=== PATIENT | male | born 1940 | race Caucasian/White ===

== ENCOUNTER 2019-04-16 15:39 | Inpatient (IN) | payer MEDICARE ==
[2019-04-16] MEDS ORDERED: NALOXONE 0.4 MG/ML 1 ML VIAL IV PRN (17:55)
[2019-04-16] MEDS ORDERED: SODIUM CHLORIDE 0.9% 1,000 ML IV SCH ×2 (18:00→19:45)
[2019-04-16 18:35] VITALS: BMI 17.1
[2019-04-16 18:36] LABS: Anisocytosis Slight; Basophils % (A) 0 %; Eosinophils # (A) 0.1 k/uL (0-0.7); Eosinophils % (A) 2 %; HCT 34.6 % (39.0-53.0); HGB 10.3 gm/dL (13.0-17.5); Hypochromasia Marked; Lymphocytes % (A) 11 %; MCHC 29.7 g/dL (31.0-37.0); MCV 87.3 fL (80.0-100.0); Mean Platelet Volume 6.9; Monocytes # (A) 0.5 k/uL (0-1.0); Monocytes % (A) 6 %; Neutrophils # (A) 7.3 k/uL (1.3-7.7); Neutrophils % (A) 80 %; Platelet Count 369 k/uL (150-450); RBC 3.97 m/uL (4.30-5.90); RDW 17.9 % (11.5-15.5); WBC 9.2 k/uL (3.8-10.6)
[2019-04-16 18:43] LABS: Albumin 2.9 g/dL (3.5-5.0); Calcium 8.1 mg/dL (8.4-10.2); Potassium 3.7 mmol/L (3.5-5.1); Total Bilirubin 1.4 mg/dL (0.2-1.3); Total Protein 6.1 g/dL (6.3-8.2)
--- NOTE | 2019-04-16 18:46 | XR ---
EXAMINATION TYPE: XR chest 1V portable DATE OF EXAM: 04/16/2019 COMPARISON: 02/14/2019 HISTORY: Short of breath TECHNIQUE: Single frontal view of the chest is obtained. FINDINGS: Heart size is normal. There is no heart failure. Thoracic aorta is atheromatous. There is a left axillary pacemaker. There is old right-sided healed rib fractures. Costophrenic angles are ivan ar. IMPRESSION: Atheromatous aorta. No active cardiopulmonary disease. No change.
[2019-04-16] MEDS ORDERED: hydrALAZINE HCL 20 MG/ML 1 ML VIAL IVP PRN (19:32)
[2019-04-16] MEDS ORDERED: IPRATROPIUM-ALBUTEROL 3 ML NEB INHALATION PRN (19:47)
[2019-04-16] MEDS ORDERED: traMADol 50 MG TAB PO PRN (19:56)
[2019-04-16] MEDS: IPRATROPIUM-ALBUTEROL 3 ML NEB INHALATION SCH (20:08)
[2019-04-16] MEDS: SYMBICORT 160-4.5 MCG INHALER INHALATION SCH (20:08)
[2019-04-16] MEDS: HEPARIN SODIUM,PORCINE 5,000 UNIT/ML 1 ML VIAL SQ SCH (22:38)
[2019-04-16] MEDS: PIPERACILLIN-TAZOBACTAM 3.375 GM in SODIUM CHLORIDE 0.9% 100 ML IVPB SCH (22:39)
[2019-04-16] MEDS: ACETAMINOPHEN TAB 500 MG TAB PO PRN (22:39)
[2019-04-16] MEDS: SODIUM CHLORIDE 0.9% 1,000 ML with POTASSIUM CHLORIDE 20 MEQ, MVI, ADULT NO.4 WITH VIT ... IV SCH ×5 (22:40)
--- NOTE | 2019-04-17 00:30 | HP ---
HISTORY AND PHYSICAL DATE OF SERVICE: 04/16/2019. CHIEF COMPLAINTS: Change in mental status and cough and UTI, possible pneumonia. HISTORY OF PRESENT ILLNESS: This 78-year-old gentleman with a past medical history of multiple medical problems including history of macular degeneration, history of melanoma, squamous cell carcinoma, history of COPD, shoulder surgery, CAD, stent being followed by Dr. Farnsworth in the patient apparently had a fall recently. Patient was treated at [facility] at that time. The patient apparently had a pelvis fracture treated symptomatically. Patient also had excoriations on the both legs also. Subsequently, patient was sent to rehab in [place], but patient has had dysphagia and cough in the ECF. The patient had some change in his status. Patient becoming progressively disoriented and confused and the patient taken to the ER in the hospital and subsequently patient directly transferred to [facility] for further evaluation and treatment. The sensorium is fluctuating at this time but the patient is unable to give a coherent history. Most of the history taken from my discussion with staff and review of the chart and as well as discussion with the family at the bedside at this time. Patient is also diagnosed with UTI and as well as pneumonia also in the hospital. There is no history of any fever, rigors, and no history of recent trauma. There is history of abdominal aortic repair in October 2018. ABG in the [facility] showed alkalosis pH of 7.66. PAST MEDICAL HISTORY: Past medical history of COPD, history of shoulder surgery, history of DJD, history of loop recorder. The patient was found to be in atrial fibrillation as this time. Continuing: CAD, stent. MEDICATION LIST: Is not available. ALLERGIES: NORCO, ADHESIVE TAPES AND NORCO AND BACTRIM. FAMILY HISTORY, SOCIAL HISTORY, REVIEW OF SYSTEMS: Could not be taken from the patient because the patient is confused. History of dementia per chart. Previous history of smoking per chart. REVIEW OF SYMPTOMS: Review of systems could not be taken because of change in mental status. PHYSICAL EXAM: Patient is confused. Pulse 83, blood pressure 181/60, respiration 20, temperature 98.2, pulse ox 98% on 3 L. HEENT is conjunctivae normal. Oral mucosa moist. NECK is no jugular venous distention. No carotid bruit. No lymph node enlargement. CARDIOVASCULAR: S1, S2 muffled. RESPIRATIONS: Breath sounds diminished in the bases. A few scattered rhonchi and crackles. ABDOMEN: Soft, nontender. No mass palpable. LEGS: Movements are painful but splints are applied with some bandages. NERVOUS SYSTEM: Higher functions as mentioned earlier. Full exam is not possible because the patient is confused and noncooperative. Diffuse weakness is noted. SKIN as mentioned earlier. Lymphatics: No lymph nodes palpable in the neck, axillae or groin. JOINTS: Noted. LABS: WBC 9.2, hemoglobin 10.2, sodium 149, potassium 3.7. Total bilirubin is 1.4. Alkaline phosphatase is 523. ASSESSMENT: 1. Change in mental status and possible acute metabolic encephalopathy secondary to possible pneumonia with sepsis. 2. Possible urinary tract infection. 3. Dysphagia, rule out aspiration and aspiration pneumonia. 4. History of recent fall and fracture of pelvis and abrasion of the legs. 5. Gait dysfunction. 6. Respiratory alkalosis of undetermined etiology. 7. Hypernatremia. 8. Anemia, possibly anemia of chronic disease. 9. Increased creatinine with mild acute renal failure. 10.Increased alkaline phosphatase. 11.Hypoalbuminemia with BMI of 17.1 with moderate to severe protein calorie malnutrition. 12.History of chronic obstructive pulmonary disease. 13.History of macular degeneration. 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 15.History of degenerative joint disease. 16.History of pacemaker. 17.History of loop recorder. 18.Atrial fibrillation, probably new onset. 19.History of abdominal aortic aneurysm repair. 20.History of coronary artery disease, stent. 21.History of pacemaker. 22.Remote history of nicotine dependence. 23.FULL CODE. RECOMMENDATIONS AND DISCUSSION: In this 78-year-old gentleman who presented with multiple complex medical issues as mentioned earlier, at this time, I recommend continue the current medications, management and symptomatic treatment. Recommend broad-spectrum IV antibiotics and evaluate the patient for any aspiration with modified barium swallow in the morning with speech pathology. Otherwise, Pulmonary and Cardiology will be consulted and DVT prophylaxis. Resume the home medications. Monitor blood pressure closely. Cardiology consultation. 2D echo with Doppler. The overall prognosis extremely guarded because of multiple complex medical issues which I discussed at length with the family who understands and agrees. Further recommendations to follow. A copy of dictation being forwarded to Dr. Farnsworth who is the primary physician. MMODL / IJN: [id number] / MTDD
[2019-04-17] MEDS: PIPERACILLIN-TAZOBACTAM 3.375 GM in SODIUM CHLORIDE 0.9% 100 ML IVPB SCH ×3 (03:42→22:03)
[2019-04-17 06:33] LABS: Appearance,Urine Clear (Clear); Bacteria,Urine Rare /hpf; Bilirubin,Urine Negative (Negative); Blood,Urine Negative (Negative); Color,Urine Light Yellow; Glucose,Urine (UA) Negative (Negative); Hyphae Yeast, Urine Rare /hpf; Ketones,Urine Negative (Negative); Leukocyte Esterase,Urine Moderate (Negative); Nitrite,Urine Negative (Negative); PH, Urine 7.5 (5.0-8.0); Protein,Urine Negative (Negative); RBC,Urine 1 /hpf (0-5); Specific Gravity,Urine 1.009 (1.001-1.035); Urobilinogen,Urine <2.0 mg/dL (<2.0); WBC,Urine 35 /hpf (0-5)
[2019-04-17] MEDS: SYMBICORT 160-4.5 MCG INHALER INHALATION SCH ×2 (07:36→20:48)
[2019-04-17] MEDS: IPRATROPIUM-ALBUTEROL 3 ML NEB INHALATION SCH ×3 (07:36→20:48)
[2019-04-17 08:45] LABS: Anisocytosis Slight; Basophils % (A) 0 %; Eosinophils # (A) 0.2 k/uL (0-0.7); Eosinophils % (A) 2 %; HCT 33.9 % (39.0-53.0); HGB 10.2 gm/dL (13.0-17.5); Hypochromasia Marked; Lymphocytes # (A) 0.9 k/uL (1.0-4.8); Lymphocytes % (A) 11 %; MCH 26.4 pg (25.0-35.0); MCV 88.2 fL (80.0-100.0); Mean Platelet Volume 7.7; Monocytes # (A) 0.5 k/uL (0-1.0); Monocytes % (A) 6 %; Neutrophils # (A) 6.5 k/uL (1.3-7.7); Neutrophils % (A) 80 %; Platelet Count 346 k/uL (150-450); RBC 3.85 m/uL (4.30-5.90); RDW 18.1 % (11.5-15.5); WBC 8.2 k/uL (3.8-10.6)
[2019-04-17] MEDS ORDERED: FLUDROCORTISONE 0.1 MG TAB PO SCH (09:00)
[2019-04-17] MEDS: FLUTICASONE 50MCG/SPRAY NASAL 16GM EA NOSTRIL SCH (10:43)
[2019-04-17] MEDS: PANTOPRAZOLE 40 MG/10 ML VIAL IVP SCH (11:04)
[2019-04-17] MEDS: HEPARIN SODIUM,PORCINE 5,000 UNIT/ML 1 ML VIAL SQ SCH (11:05)
--- NOTE | 2019-04-17 12:40 | CDI ---
Documentation Clarification Form Date: 04/17/2019 12:24:19 PM From: Cristina Cast RN CCDS Admit Date: 04/16/2019 5:28:00 PM Patient Name: Juan Bunch Visit Number: [id number] Discharge Date: ATTENTION: The Clinical Documentation Specialists (CDI) and [facility] Coding Staff appreciate your assistance in clarifying documentation. Please respond to the clarification below the line at the bottom and electronically sign. The CDI & [facility] Coding staff will review the response and follow-up if needed. Please note: Queries are made part of the Legal Health Record. If you have any questions, please contact the author of this message via ITS. Dr. Sherita Winter A Stage 2 Coccyx pressure ulcer was documented in the nursing assessment. History/Risk Factors: 78 year old male with a recent fall with pelvic fracture hospitalized at [facility]. The patient was sent to Rehab in [place] where he became disorientated and confused . The patient was transferred to [facility] from the [facility] Medical history COPD, CAD, Macular Degeneration Clinical Indicators: Per H & P Patient also had excoriations on both legs also. Location: Coccyx Wound description: length 2cm x width 2cm depth 0.1cm, moist Treatment: Foam with border Consults: Elements for accurate and compliant documentation of an ulcer: *The location/laterality of the ulcer *Etiology (decubitus/pressure, diabetic, PVD) *Stage I-IV, Unstageable, Suspected Deep Tissue Injury (To the deepest stage) *If the ulcer was present at admission (POA) or occurred after admission In your professional opinion, can you please clarify the diagnosis, location, laterality and whether present on admission (POA): * Stage 2 Pressure/Decubitus Ulcer (Partial thickness, loss of dermis, pink wound bed) * Other condition, please specify * Unable to determine Please indicate etiology of pressure ulcer (if known). (Last Revision: June 2017) Stage 2 Pressure/Decubitus Ulcer (Partial thickness, loss of dermis, pink wound bed) MTDD
--- NOTE | 2019-04-17 13:23 | P.CRDCN ---
History of Present Illness History of present illness: This is a pleasant 78-year-old male past medical history significant for coronary artery disease status post stent placement in the mid , permanent pacemaker implantation in 2014 with a Medtronic device, abdominal aortic aneurysm stent graft repair October 2018, COPD, orthostatic hypotension, dyslipidemia and former nicotine dependence. He recently suffered a pelvic fracture and has been undergoing rehabilitation at an extended care facility. He presented to the hospital as a transfer secondary to altered mental status and urinary tract infection. We have been asked to see him in consultation secondary to atrial fibrillation noted on the EKG. Per the a few years back the patient was diagnosed with atrial fibrillation and was placed on Eliquis. There was some confusion as to whether or not he actually had atrial fibrillation based on his pacemaker interrogations and the Eliquis was stopped. EKG obtained on arrival reveals atrial fibrillation with controlled ventricular response. He denies symptoms of chest discomfort, shortness of breath, dizziness or palpitations. He is seen and examined resting comfortably lying flat in bed with his at the bedside. Chest x-ray is negative for an acute cardiopulmonary process, old right rib fracture and Atheromatous aorta. Laboratory data reviewed, WBC 8.2, hemoglobin 10.2, platelets 346, sodium 146, p otassium 4.0, creatinine 1.34 with a GFR of 50. Current cardiac medications include atorvastatin 20 mg daily, Plavix 75 mg daily, Zetia 10 mg daily, Florinef 0.1 mg daily, midodrine 20 mg 3 times a day and pyridostignime 60 mg TID. At the time of my exam: CONSTITUTIONAL: Denies fever. Denies chills. EYES: Denies blurred vision. Denies vision changes. Denies eye pain. EARS, NOSE, MOUTH & THROAT: Denies headache. Denies sore throat. Denies ear pain. CARDIOVASCULAR: Denies chest pain. Denies shortness of breath. Denies orthopnea. Denies PND. Denies palpitations. RESPIRATORY: Denies cough. GASTROINTESTINAL: Denies abdominal pain. Denies diarrhea. Denies constipation. Denies nausea. Denies vomiting. MUSCULOSKELETAL: Denies myalgias. INTEGUMENTARY: Denies pruitis. Denies rash. NEUROLOGIC: Denies numbness. Denies tingling. Denies weakness. PSYCHIATRIC: Denies anxiety. Denies depression. ENDOCRINE: Denies fatigue. Denies weight change. Denies polydipsia. Denies polyurina. GENITOURINARY: Denies burning, hematuria or urgency with micturation. HEMATOLOGIC: Denies history of anemia. Denies bleeding. Blood pressure 155/95 heart rate 87 afebrile maintaining oxygen saturation on room air GENERAL: This is a 78-year-old male in no apparent distress at the time of my examination. HEENT: Head is atraumatic, normocephalic. Pupils are equal, round. Sclerae anicteric. Conjunctivae are clear. Mucous membranes of the mouth are moist. Neck is supple. There is no jugular venous distention. No carotid bruit is heard. LUNGS: Clear to auscultation no wheezes, rales or rhonchi. No chest wall tenderness is noted on palpation or with deep breathing. Diminished bilaterally. HEART: Irregular rate and rhythm without murmurs, rubs or gallops. S1 and S2 heard. ABDOMEN: Soft, nontender. Bowel sounds are heard. No organomegaly noted. EXTREMITIES: No evidence of peripheral edema and no calf tenderness noted. Bilateral heel protectors in place. VASCULAR: Radial and dorsalis pedis pulses palpated, no evidence of clubbing. NEUROLOGIC: Patient is awake, alert and oriented x3. ASSESSMENT Paroxysmal atrial fibrillation not currently on usp anticoagulation Altered mental status Dysphagia History of othostatic hypotension Dyslipidemia s/p permanent pacemaker implantation, Medtronic History of coronary artery disease s/p stent placement History of abdominal aortic aneurysm s/p stent graft placement 10/2018 maintained on plavix. PLAN Initiate on usp anticoagulation in the form of Eliquis 5 mg BID for thromboembolic protection. Risks of bleeding explained to patient and his . Check d-dimer and cortisol level. Check supine blood pressure. If less than 160 systolic will increase florinef. Further recommendations to follow. Thank you kindly for this consultation. Nurse Practitioner note has been reviewed, I agree with a documented findings and plan of care. Patient was seen and examined. Past Medical History Past Medical History: Cancer Additional Past Medical History / Comment(s): macular degeneration, melanoma (1999), squamous cell cacinoma (apr 2002, left lower hip) basal cell ca rcinoma. COPD, shoulder surgery 2007, heart loop recorder apr 18, 2014, pace maker 2014, dermal neoplas, shoulder repari 07/24, hip repair "ball and stem" 09/24, AAA repair october 2018 History of Any Multi-Drug Resistant Organisms: None Reported Past Surgical History: Heart Catheterization With Stent, Hernia Repair, Joint Replacement, Orthopedic Surgery, Pacemaker Date of Last Stent Placement:: 1995 Type of Cardiac Device: Permanent Pacemaker Device Placement Date:: 2014 Smoking Status: Former smoker - Past Family History Father Family Medical History: No Reported History, Dementia Mother Family Medical History: Diabetes Mellitus Medications and Allergies Home Medications Medication Instructions Recorded Confirmed Type Acetaminophen [Tylenol] 500 mg PO Q4-6H PRN 04/16/19 04/16/19 History Atorvastatin Calcium [Lipitor] 20 mg PO DAILY 04/16/19 04/16/19 History Budesonide/Formoterol Fumarate 2 puff INHALATION RT-BID 04/16/19 04/16/19 History [Symbicort 160-4.5 Mcg Inhaler] Clopidogrel Bisulfate [Plavix] 75 mg PO DAILY 04/16/19 04/16/19 History Cyanocobalamin (Vitamin B-12) 1,000 mcg PO DAILY 04/16/19 04/16/19 History [Vitamin B-12] Ezetimibe [Zetia] 10 mg PO DAILY 04/16/19 04/16/19 History Fludrocortisone [Florinef] 0.1 mg PO DAILY 04/16/19 04/16/19 History Fluticasone Nasal Solsberry [Flonase 2 spr EA NOSTRIL DAILY 04/16/19 04/16/19 History Nasal Solsberry] Folic Acid 1 mg PO DAILY@1200 04/16/19 04/16/19 History Ipratropium-Albuterol Nebulize 3 ml INHALATION RT-TID PRN 04/16/19 04/16/19 History [Duoneb 0.5 mg-3 mg/3 ml Soln] Midodrine HCl [ProAmatine] 20 mg PO TID 04/16/19 04/16/19 History Multivitamins, Thera [Multivitamin 1 tab PO DAILY@1200 04/16/19 04/16/19 History (formulary)] Polyethylene Glycol 3350 [Miralax] 17 gm PO DAILY 04/16/19 04/16/19 History Pyridostigmine [Mestinon] 60 mg PO TID 04/16/19 04/16/19 History Tamsulosin HCl [Flomax] 0.4 mg PO DAILY 04/16/19 04/16/19 History traMADol HCL [Ultram] 50 mg PO TID PRN 04/16/19 04/16/19 History Allergies Allergy/AdvReac Type Severity Reaction Status Date / Time acetaminophen [From [place]] AdvReac Hallucinati Verified 04/16/19 20:34 ons adhesive tape AdvReac Unknown Verified 04/16/19 20:34 hydrocodone [From [place]] AdvReac Hallucinati Verified 04/16/19 20:34 ons sulfamethoxazole AdvReac Hallucinati Verified 04/16/19 20:34 [From Bactrim] ons trimethoprim [From Bactrim] AdvReac Hallucinati Verified 04/16/19 20:34 ons Physical Exam Vitals: Vital Signs Temp Pulse Pulse Resp BP Pulse Ox 04/17/19 07:45 90 04/17/19 07:36 88 04/17/19 07:00 97.6 F 87 14 155/95 99 04/17/19 00:59 98.0 F 74 18 157/84 94 L 04/16/19 20:18 91 04/16/19 20:12 94 L 04/16/19 20:11 90 04/16/19 19:36 97.7 F 84 17 166/95 96 04/16/19 17:28 98.3 F 83 28 H 181/66 Intake and Output 04/16/19 04/17/19 04/17/19 22:59 06:59 14:59 Output Total 300 350 Balance -300 -350 Output: Urine 300 350 Other: Voiding Method Urinal Urinal # Voids 1 1 1 Weight 57.27 kg Results 04/17/19 07:02 04/17/19 07:02 Cardiac Enzymes 04/16/19 Range/Units 18:13 AST 33 (17-59) U/L CBC 04/16/19 04/17/19 Range/Units 18:13 07:02 WBC 9.2 8.2 (3.8-10.6) k/uL RBC 3.97 L 3.85 L (4.30-5.90) m/uL Hgb 10.3 L 10.2 L (13.0-17.5) gm/dL Hct 34.6 L 33.9 L (39.0-53.0) % Plt Count 369 346 (150-450) k/uL Comprehensive Metabolic Panel 04/16/19 04/17/19 Range/Units 18:13 07:02 Sodium 147 H 146 H (137-145) mmol/L Potassium 3.7 4.0 (3.5-5.1) mmol/L Chloride 113 H 117 H (98-107) mmol/L Carbon Dioxide 28 27 (22-30) mmol/L BUN 17 15 (9-20) mg/dL Creatinine 1.47 H 1.34 H (0.66-1.25) mg/dL Glucose 83 73 L (74-99) mg/dL Calcium 8.1 L 8.0 L (8.4-10.2) mg/dL AST 33 (17-59) U/L ALT 39 (21-72) U/L Alkaline Phosphatase 523 H (38-126) U/L Total Protein 6.1 L (6.3-8.2) g/dL Albumin 2.9 L (3.5-5.0) g/dL Current Medications Generic Name Dose Route Start Last Admin Trade Name Freq PRN Reason Stop Dose Admin Acetaminophen 500 mg 04/16/19 20:01 04/16/19 22:39 Tylenol Tab PO 500 mg Q4HR PRN Administration Fever and/ or Pain Albuterol/Ipratropium 3 ml 04/16/19 20:00 04/17/19 07:36 Duoneb 0.5 Mg-3 Mg/3 Ml Soln INHALATION 3 ml RT-TID JUAN Administration Albuterol/Ipratropium 3 ml 04/16/19 19:47 Duoneb 0.5 Mg-3 Mg/3 Ml Soln INHALATION RT-TID PRN Shortness Of Breath Or Wheezing Atorvastatin Calcium 20 mg 04/17/19 09:00 Lipitor PO DAILY [facility] Budesonide/Formoterol Fumarate 2 puff 04/16/19 20:00 04/17/19 07:36 Symbicort 160-4.5 Mcg Inhaler INHALATION 2 puff RT-BID JUAN Administration Clopidogrel Bisulfate 75 mg 04/17/19 09:00 Plavix PO DAILY [facility] Cyanocobalamin 1,000 mcg 04/17/19 09:00 Vitamin B-12 PO DAILY [facility] Ezetimibe 10 mg 04/17/19 09:00 Zetia PO DAILY [facility] Fludrocortisone Acetate 0.1 mg 04/17/19 09:00 Florinef PO DAILY [facility] Fluticasone Propionate 2 spray 04/17/19 09:00 04/17/19 10:43 Flonase Nasal Solsberry EA NOSTRIL 2 spray DAILY [facility] Administration Folic Acid 1 mg 04/17/19 12:00 Folic Acid PO DAILY@1200 [facility] Heparin Sodium (Porcine) 5,000 unit 04/16/19 21:00 04/17/19 11:05 Heparin SQ 5,000 unit Q12HR [facility] Administration Hydralazine HCl 10 mg 04/16/19 19:32 Apresoline IVP Q4HR PRN SBP>140 Piperacillin Sod/Tazobactam 100 mls @ 25 mls/hr 04/16/19 20:00 04/17/19 03:42 Sod 3.375 gm/ Sodium Chloride IVPB 25 mls/hr Q8H [facility] Administration Potassium Chloride 20 meq/ 1,021.2 mls @ 75 mls/hr 04/16/19 20:00 04/16/19 22:40 Parenteral Vitamin Supplement IV 75 mls/hr 10 ml/ Thiamine HCl 100 mg/ .[id number] [facility] Administration Folic Acid 1 mg/ Sodium Chloride Midodrine 10 mg 04/17/19 07:30 Proamatine PO AC-TID [facility] Multivitamins 1 each 04/17/19 12:00 Theragran PO DAILY@1200 [facility] Naloxone HCl 0.2 mg 04/16/19 17:55 Narcan IV Q2M PRN Opioid Reversal Pantoprazole Sodium 40 mg 04/17/19 09:00 04/17/19 11:04 Protonix IVP 40 mg DAILY [facility] Administration Polyethylene Glycol 17 gm 04/17/19 09:00 Miralax PO DAILY [facility] Tamsulosin HCl 0.4 mg 04/17/19 08:30 Flomax PO PC-BRKFST [facility] Tramadol HCl 50 mg 04/16/19 19:56 Ultram PO TID PRN Breakthrough Pain Intake and Output 04/16/19 04/17/19 04/17/19 22:59 06:59 14:59 Output Total 300 350 Balance -300 -350 Output: Urine 300 350 Other: Voiding Method Urinal Urinal # Voids 1 1 1 Weight 57.27 kg 04/17/19 07:02 04/17/19 07:02
--- NOTE | 2019-04-17 13:49 | CT ---
EXAMINATION TYPE: CT brain wo con DATE OF EXAM: 04/17/2019 COMPARISON: 04/16/2019 HISTORY: stroke CT DLP: 1051.4 mGycm Automated exposure control for dose reduction was used. FINDINGS: There is low-attenuation in the right temporal lobe compatible with encephalomalacia. Generalized mod erate degenerative change. Periventricular low attenuation is most compatible with remote microvascul ar ischemia. No midline shift or mass effect. No acute intracranial hemorrhage. IMPRESSION: DEGENERATIVE CHANGE AND NONSPECIFIC WHITE MATTER CHANGES MOST TYPICAL REMOTE ISCHEMIA. ENCEPHALOMALAC IA INVOLVING THE RIGHT TEMPORAL LOBE SUGGESTIVE OF REMOTE ISCHEMIA. NO ACUTE HEMORRHAGE.
--- NOTE | 2019-04-17 14:12 | FL ---
EXAMINATION TYPE: FL barium swallow w video DATE OF EXAM: 04/17/2019 MODIFIED SWALLOW / DEGLUTITION STUDY CLINICAL HISTORY: Dysphagia. TECHNIQUE: Deglutition study is performed utilizing thin liquid barium, honey and nectar thick liqui d barium, barium thick applesauce, and barium coated cracker. COMPARISON: None. FINDINGS: The oral and pharyngeal phases show satisfactory initiation and propagation with all modali ties tested. Normal mastication is seen with solid modalities tested. There is no evidence of penet ration or aspiration with any modality tested. No significant pharyngeal residue was appreciated. 1. 3 minutes of fluoroscopy time and 0 images submitted. IMPRESSION: Normal deglutition study. Please refer to speech therapist notes for further details if necessary.
[2019-04-17] MEDS: ATORVASTATIN 20 MG TAB PO SCH (14:40)
[2019-04-17] MEDS: FOLIC ACID 1 MG TAB PO SCH (14:40)
[2019-04-17] MEDS: CYANOCOBALAMIN 500 MCG TAB PO SCH (14:41)
[2019-04-17] MEDS: EZETIMIBE 10 MG TAB PO SCH (14:41)
[2019-04-17] MEDS: CLOPIDOGREL 75 MG TAB PO SCH (14:41)
[2019-04-17] MEDS: TAMSULOSIN 0.4 MG CAP.ER.24H PO SCH (14:41)
[2019-04-17] MEDS: MIDODRINE 5 MG TAB PO SCH ×3 (14:41→17:32)
[2019-04-17] MEDS: MULTIVITAMINS, THERA 1 EACH TAB PO SCH (14:41)
[2019-04-17] MEDS: SODIUM CHLORIDE 0.9% 1,000 ML with POTASSIUM CHLORIDE 20 MEQ, MVI, ADULT NO.4 WITH VIT ... IV SCH ×5 (14:42)
[2019-04-17] MEDS: POLYETHYLENE GLYCOL 3350 17 GM POWD.PACK PO SCH (14:42)
[2019-04-17] MEDS: ACETAMINOPHEN TAB 500 MG TAB PO PRN ×2 (15:27→22:05)
[2019-04-17] MEDS ORDERED: FLUDROCORTISONE 0.1 MG TAB PO STA (15:37)
--- NOTE | 2019-04-17 15:41 | P.CNPUL ---
History of Present Illness Consult date: 04/17/19 Chief complaint: Altered mentation History of present illness: This is a 78-year-old male patient who came into respiratory of altered mental status and declining health status in general. This patient was involved in a fall and the left hip fracture in the beginning of 2018. Following that he had another fall sustaining a pelvic fracture for which she was sent to [facility] and following that the patient was transferred to [facility] where he was supposed to undergo rehabilitation. Nevertheless, according to the , his condition is been poor. Point where the patient never got ambulatory he was essentially bedridden. His nutrition was also poor as the patient had dropped significantly amount of weight and current BMI is down to 17.1. He has multiple medical problems and comorbidities. He is known to have coronary artery disease with previous coronary stenting and has a pacemaker in place. He has a abdominal aortic aneurysm that was stented endovascularly back in October 2018. His severe COPD with oxygen dependent respiratory failure, chronic in addition to hyperlipidemia, paroxysmal atrial fibrillation, macular degeneration, melanoma, squamous cell carcinoma of the skin, and osteoarthritis. Most significant finding for now as his chronic debility and malnourishment and limited range of motion. 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 The patient was started on broad-spectrum antibiotics including a combination of Zosyn and vancomycin as the patient's chest x-ray showed chronic interstitial changes and pneumonia was considered. Blood gases showed an acute respiratory alkalosis with a pH of 7.66 with a pCO2 of 25. The patient was quite dehydrated with hypernatremia. Urinalysis was also abnormal with some few WBCs and rare bacteria. No nausea. No vomiting. No aspiration. He is swallow was however questionable and for that reason the patient was sent over to a very swallow. This initial evaluation was done at [facility]. For now, the patient has a white cell count of 8.2. Hemoglobin is at 10.2. Sodium was 146. BUN is 15 with a creatinine of 1.34 improved since yesterday. D-dimer was elevated at 8, and the patient has an elevated alkaline phosphatase of 523 with normal AST and ALP and bilirubin. Calcium level is at 8.1. UA showing 35 WBCs. Cultures are still pending for now. Chest x-[facility] findings [facility] and the patient is currently liters of oxygen nasal cannula with oxygen 98%. He is awake and alert and communicating and answering questions appropriately. His mucous membranes are extremely dry. The swallow evaluation was repeated and the patient was found to have normal study Review of Systems Constitutional: Reports anorexia, Reports fatigue, Reports lethargy, Reports poor appetite, Reports weakness, Reports weight loss Eyes: bilateral blurred vision, bilateral bulging eye, denies decreased vision Ears: deny: decreased hearing, ear discharge, earache, tinnitus Ears, nose, mouth and throat: Reports as per HPI (Dryness in his mouth and oral mucosa), Reports voice changes Cardiovascular: Reports decreased exercise tolerance Respiratory: Reports dyspnea, Reports home oxygen Gastrointestinal: Reports as per HPI, Reports loss of appetite Genitourinary: Reports as per HPI Musculoskeletal: Reports frequent falls, Reports gait dysfunction, Reports muscle weakness Musculoskeletal: absent: ankle pain, ankle stiffness, ankle swelling Integumentary: Denies pruritus, Denies rash Neurological: Reports as per HPI, Reports balance difficulties, Reports gait dysfunction, Reports weakness Psychiatric: Reports as per HPI Endocrine: Reports as per HPI, Reports fatigue Hematologic/Lymphatic: Reports as per HPI Past Medical History Past Medical History: Cancer Additional Past Medical History / Comment(s): Coronary artery disease with previous coronary stenting, COPD, previous history of a permanent pacemaker insertion, abdominal aortic aneurysm with insertion of an endovascular stent graft, history of orthostatic hypotension, history of frequent falls, history of left hip fracture, history of pelvic fracture, hyperlipidemia, history of atrial fibrillation, hyperlipidemia, melanoma resected back in June 2000, 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, macular degeneration, history of insertion and removal of a heart loop recorder, History of Any Multi-Drug Resistant Organisms: None Reported Past Surgical History: Heart Catheterization With Stent, Hernia Repair, Joint Replacement, Orthopedic Surgery, Pacemaker Additional Past Surgical History / Comment(s): Resection of a melanoma and squamous cell carcinoma of the skin involving the lower lip, shoulder surgery 2007, insertion and removal of a loop recorder, pacemaker insertion 2014, cardiac catheterization and stenting, left hip ORIF in September 2018, shoulder surgery in July 2018, abdominal aortic aneurysm endovascular stent grafting in October 2018 Date of Last Stent Placement:: 1995 Type of Cardiac Device: Permanent Pacemaker Device Placement Date:: 2014 Smoking Status: Former smoker - Past Family History Father Family Medical History: No Reported History, Dementia Mother Family Medical History: Diabetes Mellitus Medications and Allergies Home Medications Medication Instructions Recorded Confirmed Type Acetaminophen [Tylenol] 500 mg PO Q4-6H PRN 04/16/19 04/16/19 History Atorvastatin Calcium [Lipitor] 20 mg PO DAILY 04/16/19 04/16/19 History Budesonide/Formoterol Fumarate 2 puff INHALATION RT-BID 04/16/19 04/16/19 History [Symbicort 160-4.5 Mcg Inhaler] Clopidogrel Bisulfate [Plavix] 75 mg PO DAILY 04/16/19 04/16/19 History Cyanocobalamin (Vitamin B-12) 1,000 mcg PO DAILY 04/16/19 04/16/19 History [Vitamin B-12] Ezetimibe [Zetia] 10 mg PO DAILY 04/16/19 04/16/19 History Fludrocortisone [Florinef] 0.1 mg PO DAILY 04/16/19 04/16/19 History Fluticasone Nasal [place] [Flonase 2 spr EA NOSTRIL DAILY 04/16/19 04/16/19 History Nasal [place]] Folic Acid 1 mg PO DAILY@1200 04/16/19 04/16/19 History Ipratropium-Albuterol Nebulize 3 ml INHALATION RT-TID PRN 04/16/19 04/16/19 History [Duoneb 0.5 mg-3 mg/3 ml Soln] Midodrine HCl [ProAmatine] 20 mg PO TID 04/16/19 04/16/19 History Multivitamins, Thera [Multivitamin 1 tab PO DAILY@1200 04/16/19 04/16/19 History (formulary)] Polyethylene Glycol 3350 [Miralax] 17 gm PO DAILY 04/16/19 04/16/19 History Pyridostigmine [Mestinon] 60 mg PO TID 04/16/19 04/16/19 History Tamsulosin HCl [Flomax] 0.4 mg PO DAILY 04/16/19 04/16/19 History traMADol HCL [Ultram] 50 mg PO TID PRN 04/16/19 04/16/19 History Allergies Allergy/AdvReac Type Severity Reaction Status Date / Time acetaminophen [From [place]] AdvReac Hallucinati Verified 04/16/19 20:34 ons adhesive tape AdvReac Unknown Verified 04/16/19 20:34 hydrocodone [From [place]] AdvReac Hallucinati Verified 04/16/19 20:34 ons sulfamethoxazole AdvReac Hallucinati Verified 04/16/19 20:34 [From Bactrim] ons trimethoprim [From Bactrim] AdvReac Hallucinati Verified 04/16/19 20:34 ons Physical Exam Vitals: Vital Signs Temp Pulse Pulse Resp BP Pulse Ox 04/17/19 14:19 97.5 F L 83 16 138/90 98 04/17/19 07:45 90 04/17/19 07:36 88 04/17/19 07:00 97.6 F 87 14 155/95 99 04/17/19 00:59 98.0 F 74 18 157/84 94 L 04/16/19 20:18 91 04/16/19 20:12 94 L 04/16/19 20:11 90 04/16/19 19:36 97.7 F 84 17 166/95 96 04/16/19 17:28 98.3 F 83 28 H 181/66 Intake and Output 04/17/19 04/17/19 04/17/19 06:59 14:59 22:59 Output Total 300 350 Balance -300 -350 Output: Urine 300 350 Other: Voiding Method Urinal # Voids 1 1 Weight 57.27 kg Gen. appearance thin cachectic frail BMI of 17.1, communicating, nonacute distress Head exam was generally normal. There was no scleral icterus or corneal arcus. Mucous membranes were moist. Neck was supple and without jugular venous distension, thyromegaly, or carotid bruits. Carotids were easily palpable bilaterally. There was no adenopathy. Mucus membranes are extremely dry and the patient has poor dental condition Lungs sounds are diminished bilaterally otherwise clear. Scattered rhonchi. Cardiac exam revealed the PMI to be normally situated and sized. The rhythm was regular and no extrasystoles were noted during several minutes of auscultation. The first and second heart sounds were normal and physiologic splitting of the second heart sound was noted. There were no murmurs, rubs, clicks, or gallops. Abdominal exam revealed normal bowel sounds. The abdomen was soft, non-tender, and without masses, organomegaly, or appreciable enlargement of the abdominal aorta. Extremities revealed very atrophied muscles specially in lower extremities bilaterally. Pulses are diminished. They're present. No cyanosis. No clubbing. Skin is extremely thin and brittle and the patient has areas of skin abrasions t hroughout the upper and lower extremities. No open wounds. No open sores. No cellulitis. Neurologically the patient is awake and alert and following commands and answering questions appropriately. Motor weakness present especially in lower extremities with motor function of 2-3/5. No Babinski. No clonus. Results - Laboratory Findings CBC and BMP: 04/17/19 07:02 04/17/19 07:02 PT/INR, D-dimer D-Dimer 8.06 mg/L FEU (<0.60) H 04/17/19 13:45 Abnormal lab findings: Abnormal Labs 04/16/19 04/16/19 04/17/19 18:13 18:13 06:02 RBC 3.97 L Hgb 10.3 L Hct 34.6 L MCHC 29.7 L RDW 17.9 H Lymphocytes # D-Dimer Sodium 147 H Chloride 113 H Creatinine 1.47 H Glucose Calcium 8.1 L Total Bilirubin 1.4 H Alkaline Phosphatase 523 H Total Protein 6.1 L Albumin 2.9 L Ur Leukocyte Esterase Moderate H Urine WBC 35 H Urine Bacteria Rare H 04/17/19 04/17/19 04/17/19 07:02 07:02 13:45 RBC 3.85 L Hgb 10.2 L Hct 33.9 L MCHC 30.0 L RDW 18.1 H Lymphocytes # 0.9 L D-Dimer 8.06 H Sodium 146 H Chloride 117 H Creatinine 1.34 H Glucose 73 L Calcium 8.0 L Total Bilirubin Alkaline Phosphatase Total Protein Albumin Ur Leukocyte Esterase Urine WBC Urine Bacteria - Diagnostic Findings Chest x-ray: image reviewed Assessment and Plan Plan: 1 altered mentation currently under investigation, consider underlying infection/septic event. Consider pneumonia versus UTI. CAT scan from [facility] and [facility] showed chronic changes without any acute abnormalities. He seems to have improved and the patient is following commands and answering questions appropriately 2 extreme debility with motor weakness involving the lower extremities bilaterally 3 recurrent falls with a recent left hip ORIF back in 2018 and subsequent pelvic fracture and March 2019 4 COPD currently inactive in stable 5 Coronary artery disease with previous coronary stenting, 6 previous history of a permanent pacemaker insertion 7 abdominal aortic aneurysm with insertion of an endovascular stent graft 8 history of orthostatic hypotension, predisposing this patient at increased risk of fall, currently on midodrine 9 history of frequent falls, history of left hip fracture, history of pelvic fracture 10 hyperlipidemia 11 history of atrial fibrillation 12 hyperlipidemia 13 melanoma resected back in June 2000, 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 14 macular degeneration 15 increased alkaline phosphatase, within normal LFT. Rule out secondary to chronic bone disease 16 hyperchloremic hypernatremia, improving 17 acute kidney injury secondary to intravascular volume depletion 18 metabolic alkalosis secondary to intravascular volume depletion, improving Plan Obtain a swallow evaluation. Continue current antibiotic coverage. The patient currently on IV Zosyn. Aspiration precaution. 2-D echo. Resume outpatient medication. Cultures of been sent. Hydrate this patient has the patient has a component of dehydration. Prognosis poor as the patient is quite debilitated. The patient has fallen behind his nutrition and he is quite cachectic and his BMI is down to 17.1. Has significant motor weakness. He has a high fall risk. Unfortunately I do not think he will do well in the future. His course may be complicated. We'll continue to follow.
--- NOTE | 2019-04-17 20:40 | PN ---
PROGRESS NOTE DATE OF SERVICE: 04/17/2019. This 78-year-old gentleman admitted with UTI with sepsis and possible pneumonia was referred from elsewhere. The patient is being closely monitored. The patient has suspicion of aspiration. The modified barium swallow did not showing active aspiration at this time. Multiple consultants, Cardiology, pulmonology are following the patient closely. PAST MEDICAL HISTORY: Reviewed. REVIEW OF SYSTEMS: Cardiovascular system: No angina or palpitations. RESPIRATORY: As mentioned earlier. GI no nausea or vomiting. no dysuria. NERVOUS SYSTEM as mentioned earlier. CURRENT MEDICATIONS: Reviewed and include: 1. Tylenol p.r.n. 2. DuoNeb q.i.d. and p.r.n. 3. Eliquis 5 mg p.o. b.i.d. 4. Lipitor 20 mg. 5. Symbicort 160/4.5 two puffs b.i.d. 6. Plavix 75 mg daily. 7. Vitamin B12 1000 mcg. 8. Zetia 10 mg daily. 9. Florinef 0.2 mg daily. 10.Flonase. 11.Folic acid. 12.Apresoline 10 mg p.r.n. 13.Midodrine. 14.Multivitamins one p.o. daily. 15.Narcan. 16.Protonix 40 mg daily. 17.Zosyn 3.375 IV q.8. 18.MiraLAX. 19.Flomax 0.4. 20.Ultram 50 mg t.i.d. p.r.n. PHYSICAL EXAM: Patient is alert, oriented x3. Pulse 83, blood pressure 138/90, respirations 16, temperature 97.5, pulse ox 98% on 3 L. HEENT: Conjunctivae normal. NECK: No JVD. CARDIOVASCULAR: S1, S2 muffled. RESPIRATION: Breath sounds diminished in the bases. Bilateral scattered rhonchi and crackles. ABDOMEN: Soft, nontender. No mass palpable. LEGS: No edema. No swelling. CENTRAL NERVOUS SYSTEM: Diffusely weak. LAB INVESTIGATIONS: At this time shows WBC 8.2, hemoglobin 10.2. D-dimer is 8.06. Sodium is 146. UA noted. Cultures are negative so far. ASSESSMENT: 1. Change in mental status with possible acute metabolic encephalopathy secondary to possible pneumonia and sepsis. 2. Urinary tract infection possibly. 3. Dysphagia. No evidence of aspiration. 4. History of recent fall and fracture of the pelvis and ablation of the legs. 5. Gait dysfunction. 6. Respiratory alkalosis of undetermined etiology. 7. Elevated D-dimer. 8. Hyponatremia. 9. Anemia possibly anemia of chronic disease. 10.Increased creatinine with mild acute renal failure. 11.Increased alkaline phosphatase. 12.Hypoalbuminemia with a BMI of 17.1 with moderate to severe protein calorie malnutrition. 13.History of chronic obstructive pulmonary disease. 14.History of macular degeneration. 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 16.History of degenerative joint disease. 17.History of pacemaker. 18.History of loop recorder. 19.Atrial fibrillation, probably new onset. 20.History of abdominal aortic aneurysm repair. 21.History of coronary artery disease/ stent. 22.History of pacemaker. 23.Remote history of nicotine dependence. 24.FULL CODE. RECOMMENDATIONS AND DISCUSSION: Recommend to continue current medications, continue with monitoring, symptomatic treatment. Continue the broad-spectrum IV antibiotics. Dr. Bowen and cardiology following the patient closely. Video fluoroscopic swallow study did not show any evidence of aspiration, but recommend to continue the antibiotics and long-term anticoagulation with Eliquis 5 mg p.o. b.i.d. was recommended by Cardiology. Guarded prognosis because of multiple complex medical issues and further recommendations to follow. MMODL / IJN: [id number] /
[2019-04-17] MEDS: APIXABAN 5 MG TAB PO SCH (22:03)
[2019-04-18] MEDS: SODIUM CHLORIDE 0.9% 1,000 ML with POTASSIUM CHLORIDE 20 MEQ, MVI, ADULT NO.4 WITH VIT ... IV SCH ×15 (01:12→19:20)
[2019-04-18] MEDS: PIPERACILLIN-TAZOBACTAM 3.375 GM in SODIUM CHLORIDE 0.9% 100 ML IVPB SCH ×3 (04:32→20:40)
[2019-04-18 06:58] LABS: Anisocytosis Slight; Basophils % (A) 0 %; Eosinophils # (A) 0.2 k/uL (0-0.7); Eosinophils % (A) 1 %; HCT 33.5 % (39.0-53.0); Hypochromasia Marked; Lymphocytes # (A) 1.1 k/uL (1.0-4.8); Lymphocytes % (A) 10 %; MCH 25.7 pg (25.0-35.0); MCHC 29.9 g/dL (31.0-37.0); Mean Platelet Volume 7.4; Monocytes # (A) 0.6 k/uL (0-1.0); Monocytes % (A) 5 %; Neutrophils # (A) 9.2 k/uL (1.3-7.7); Neutrophils % (A) 83 %; Platelet Count 344 k/uL (150-450); RBC 3.89 m/uL (4.30-5.90); RDW 17.9 % (11.5-15.5); WBC 11.2 k/uL (3.8-10.6)
[2019-04-18 07:20] LABS: Calcium 8.2 mg/dL (8.4-10.2); Potassium 3.5 mmol/L (3.5-5.1)
[2019-04-18] MEDS: PANTOPRAZOLE 40 MG/10 ML VIAL IVP SCH (08:25)
[2019-04-18] MEDS: POLYETHYLENE GLYCOL 3350 17 GM POWD.PACK PO SCH (08:25)
[2019-04-18] MEDS: FLUTICASONE 50MCG/SPRAY NASAL 16GM EA NOSTRIL SCH (08:25)
[2019-04-18] MEDS: MIDODRINE 5 MG TAB PO SCH ×3 (08:26→18:27)
[2019-04-18] MEDS: CLOPIDOGREL 75 MG TAB PO SCH (08:27)
[2019-04-18] MEDS: APIXABAN 5 MG TAB PO SCH ×2 (08:27→20:39)
[2019-04-18] MEDS: FLUDROCORTISONE 0.1 MG TAB PO SCH (08:27)
[2019-04-18] MEDS: ATORVASTATIN 20 MG TAB PO SCH (08:27)
[2019-04-18] MEDS: EZETIMIBE 10 MG TAB PO SCH (08:27)
[2019-04-18] MEDS: TAMSULOSIN 0.4 MG CAP.ER.24H PO SCH (08:27)
[2019-04-18] MEDS: CYANOCOBALAMIN 500 MCG TAB PO SCH (08:27)
[2019-04-18] MEDS: ACETAMINOPHEN TAB 500 MG TAB PO PRN (09:05)
[2019-04-18] MEDS: IPRATROPIUM-ALBUTEROL 3 ML NEB INHALATION SCH ×3 (10:00→20:14)
[2019-04-18] MEDS: SYMBICORT 160-4.5 MCG INHALER INHALATION SCH ×2 (10:00→20:14)
--- NOTE | 2019-04-18 10:11 | CDI ---
Documentation Clarification Form Date: 04/18/2019 9:54:32 AM From: Cristina Cast RN CCDS Admit Date: 04/16/2019 5:28:00 PM Patient Name: Juan Bunch Visit Number: [id number] Discharge Date: ATTENTION: The Clinical Documentation Specialists (CDI) and [facility] Coding Staff appreciate your assistance in clarifying documentation. Please respond to the clarification below the line at the bottom and electronically sign. The CDI & [facility] Coding staff will review the response and follow-up if needed. Please note: Queries are made part of the Legal Health Record. If you have any questions, please contact the author of this message via ITS. Dr. Ramiro Bowen The patient presented with the following respiratory symptoms cough and pneumonia transfer from [facility]. History/Risk Factors: 78 year old male with a medical history of COPD, Paroxsymal Atrial Fib; CAD Tobacco use: Former smoker Home oxygen: Per your consult under constitutional Respiratory Reports dyspnea, reports home oxygen Clinical Indicators: Vital signs: 138/90 83 97.5 16 98% 3L Lung/Breathing assessment: per your consul Lung sounds are diminished bilaterally otherwise clear. Scattered rhonchi ABG/CBG: From [place] pH 7.66 pCO2 25.0 Treatment: Breathing tx Duonebs Symbicort 3L oxygen nasal cannula In your professional opinion, can you please clarify if these findings signify one of the following conditions? * Chronic Respiratory Failure (further specify (if known)): With hypercapnia? (pCO2 >50 and pH <7.35) With hypoxia? (pO2 <60 mm Hg or SpO2 <91% on room air) * Chronic Respiratory Insufficiency * Other Diagnosis, please specify * Unable to determine (Last Revision: December 2017) Chronic Respiratory Failure(pO2 <60 mm Hg or SpO2 <91% on room air) MTDD
--- NOTE | 2019-04-18 10:37 | P.PN ---
Subjective This is a pleasant 78-year-old male past medical history significant for coronary artery disease status post stent placement in the mid , permanent pacemaker implantation in 2014 with a [employer] device, abdominal aortic aneurysm stent graft repair October 2018, COPD, orthostatic hypotension, dyslipidemia and former nicotine dependence. He is seen and examined laying flat resting comfortably in bed. He denies shortness of breath, chest pain, palpitations, dizziness or diaphoresis. Blood pressure 153/100 heart rate 100. GENERAL: This is a 78-year-old male in no apparent distress at the time of my examination. HEENT: Head is atraumatic, normocephalic. Pupils are equal, round. Sclerae anicteric. Conjunctivae are clear. Mucous membranes of the mouth are moist. Neck is supple. There is no jugular venous distention. No carotid bruit is heard. LUNGS: Clear to auscultation no wheezes, rales or rhonchi. No chest wall tenderness is noted on palpation or with deep breathing. Diminished bilaterally. HEART: Irregular rate and rhythm without murmurs, rubs or gallops. S1 and S2 heard. EXTREMITIES: No evidence of peripheral edema and no calf tenderness noted. Bilateral heel protectors in place. ASSESSMENT Paroxysmal atrial fibrillation not currently on joint terminal attack controller anticoagulation Altered mental status Dysphagia History of othostatic hypotension Dyslipidemia s/p permanent pacemaker implantation, Medtronic History of coronary artery disease s/p stent placement History of abdominal aortic aneurysm s/p stent graft placement 10/2018 maintained on plavix. PLAN Lengthy discussion with the patient and his regarding elevated d-dimer and the possibility of blood clots due to his sedentary state recently with pelvic fracture. Medical management is the intended approach as well as his wives wishes. He has been anticoagulated with Eliquis for a-fib. Once he is back to walking and moving around freely we will consider decreasing this to 2.5 mg BID due to his struggle with orthostatic hypotension placing him at increase fall risk, also given his age of almost 79, mild renal impairment and low body weight. Check venous duplex bilaterally. Continue current medical regimen. Stable from a cardiac perspective. Follow up with his primary siding applicator or Dr. Ambrose upon discharge. We will continue to follow as needed. Nurse Practitioner note has been reviewed, I agree with a documented findings and plan of care. Patient was seen and examined. Objective - Vital Signs Vital signs: Vital Signs Temp 97.7 F 04/18/19 07:00 Pulse 82 04/18/19 07:00 Resp 15 04/18/19 07:00 BP 153/100 04/18/19 07:00 Pulse Ox 95 04/18/19 07:00 Intake & Output 04/17/19 04/18/19 04/18/19 18:59 06:59 18:59 Intake Total 600 120 Output Total 350 300 Balance -350 300 120 Weight 57.27 kg Intake: Intake, IV Titration 600 Amount Piperacillin-Tazobactam 3 200 .375 gm In Sodium Chloride 0.9% 100 ml @ 25 mls/hr IVPB Q8H JUAN Rx#: [id number] Sodium Chloride 0.9% 1, 400 000 ml @ 75 mls/hr IV . [id number] JUAN with Potassium Chloride 20 meq with Mvi, Adult No.4 with Vit K 10 ml with Thiamine 100 mg with Folic Acid 1 mg Rx#: [id number] Oral 120 Output: Urine 350 300 Other: Voiding Method Urinal Urinal Urinal Diaper Diaper # Voids 1 1 1 # Bowel Movements 1 - Labs CBC & Chem 7: 04/18/19 06:17 04/18/19 06:17 Labs: Abnormal Lab Results - Last 24 Hours (Table) 04/17/19 04/18/19 04/18/19 Range/Units 13:45 06:17 06:17 WBC 11.2 H (3.8-10.6) k/uL RBC 3.89 L (4.30-5.90) m/uL Hgb 10.0 L (13.0-17.5) gm/dL Hct 33.5 L (39.0-53.0) % MCHC 29.9 L (31.0-37.0) g/dL RDW 17.9 H (11.5-15.5) % Neutrophils # 9.2 H (1.3-7.7) k/uL D-Dimer 8.06 H (<0.60) mg/L FEU Chloride 111 H (98-107) mmol/L Creatinine 1.36 H (0.66-1.25) mg/dL Calcium 8.2 L (8.4-10.2) mg/dL Microbiology - Last 24 Hours (Table) 04/16/19 20:00 Blood Culture - Preliminary Blood No Growth after 24 hours 04/17/19 06:02 Urine Culture - Preliminary Urine,Voided
--- NOTE | 2019-04-18 10:59 | P.PN ---
Subjective Progress Note Date: 04/18/19 Principal diagnosis: Altered mental status This is a 78-year-old male patient who came into respiratory of altered mental status and declining health status in general. This patient was involved in a fall and the left hip fracture in the beginning of 2018. Following that he had another fall sustaining a pelvic fracture for which she was sent to [facility] and following that the patient was transferred to [facility] where he was supposed to undergo rehabilitation. Nevertheless, according to the , his condition is been poor. Point where the patient never got ambulatory he was essentially bedridden. His nutrition was also poor as the patient had dropped significantly amount of weight and current BMI is down to 17.1. He has multiple medical problems and comorbidities. He is known to have coronary artery disease with previous coronary stenting and has a pacemaker in place. He has a abdominal aortic aneurysm that was stented endovascularly back in October 2018. His severe COPD with oxygen dependent respiratory failure, chronic in addition to hyperlipidemia, paroxysmal atrial fibrillation, macular degeneration, melanoma, squamous cell carcinoma of the skin, and osteoarthritis. Most significant finding for now as his chronic debility and malnourishment and limited range of motion. I was able to retrieve the records from [facility] and I started the patient had a CAT scan of the brain that showed [employer] atrophy without any acute abnormalities. The patient was started on broad-spectrum antibiotics including a combination of Zosyn and vancomycin as the patient's chest x-ray showed chronic interstitial changes and pneumonia was considered. Blood gases showed an acute respiratory alkalosis with a pH of 7.66 with a pCO2 of 25. The patient was quite dehydrated with hypernatremia. Urinalysis was also abnormal with some few WBCs and rare bacteria. No nausea. No vomiting. No aspiration. He is swallow was however questionable and for that reason the patient was sent over to a very swallow. This initial evaluation was done at [facility]. For now, the patient has a white cell count of 8.2. Hemoglobin is at 10.2. Sodium was 146. BUN is 15 with a creatinine of 1.34 improved since yesterday. D-dimer was elevated at 8, and the patient has an elevated alkaline phosphatase of 523 with normal AST and ALP and bilirubin. Calcium level is at 8.1. UA showing 35 WBCs. Cultures are still pending for now. Chest x-ray findings are similar to the ones and [facility] and the patient is currently liters of oxygen nasal cannula with oxygen 98%. He is awake and alert and communicating and answering questions appropriately. His mucous membranes are extremely dry. The swallow evaluation was repeated and the patient was found to have normal study. The patient is seen today 04/18/2019 in follow-up on the regular medical floor. He is much more awake and alert today as compared to yesterday. Denies any worsening shortness of breath. He does have a loose nonproductive cough. Maintaining O2 saturations in the mid 90s on 3 L/m per nasal cannula. He's been afebrile. Blood culture reveals no growth to date. Urine culture pending. White count 11.2. Hemoglobin 10.0. Creatinine 1.36. He remains on DuoNeb inhalations, Symbicort. IV Zosyn. Anticoagulated with Eliquis. Objective - Vital Signs Vital signs: Vital Signs Temp 97.7 F 04/18/19 07:00 Pulse 93 04/18/19 10:15 Resp 15 04/18/19 07:00 BP 153/100 04/18/19 07:00 Pulse Ox 95 04/18/19 07:00 Intake & Output 04/17/19 04/18/19 04/18/19 18:59 06:59 18:59 Intake Total 600 120 Output Total 350 300 Balance -350 300 120 Weight 57.27 kg Intake: Intake, IV Titration 600 Amount Piperacillin-Tazobactam 3 200 .375 gm In Sodium Chloride 0.9% 100 ml @ 25 mls/hr IVPB Q8H JUAN Rx#: [id number] Sodium Chloride 0.9% 1, 400 000 ml @ 75 mls/hr IV . [id number] JUAN with Potassium Chloride 20 meq with Mvi, Adult No.4 with Vit K 10 ml with Thiamine 100 mg with Folic Acid 1 mg Rx#: [id number] Oral 120 Output: Urine 350 300 Other: Voiding Method Urinal Urinal Urinal Diaper Diaper # Voids 1 1 1 # Bowel Movements 1 - Exam Gen. appearance thin cachectic frail 78-year-old gentleman. BMI of 17.1, communicating, no acute distress on 3 L nasal cannula. Head exam was generally normal. There was no scleral icterus or corneal arcus. Mucous membranes were moist. Neck was supple and without jugular venous distension, thyromegaly, or carotid bruits. Carotids were easily palpable bilaterally. There was no adenopathy. Muc us membranes are extremely dry and the patient has poor dental condition Lungs sounds are diminished bilaterally. Scattered rhonchi. Cardiac exam revealed the PMI to be normally situated and sized. The rhythm was regular and no extrasystoles were noted during several minutes of auscultation. The first and second heart sounds were normal and physiologic splitting of the second heart sound was noted. There were no murmurs, rubs, clicks, or gallops. Abdominal exam revealed normal bowel sounds. The abdomen was soft, non-tender, and without masses, organomegaly, or appreciable enlargement of the abdominal aorta. Extremities revealed very atrophied muscles specially in lower extremities bilaterally. Pulses are diminished. They're present. No cyanosis. No clubbing. Skin is extremely thin and brittle and the patient has areas of skin abrasions throughout the upper and lower extremities. No open wounds. No open sores. No cellulitis. Neurologically the patient is awake and alert and following commands and answering questions appropriately. Motor weakness present especially in lower extremities with motor function of 2-3/5. No Babinski. No clonus. - Labs CBC & Chem 7: 04/18/19 06:17 04/18/19 06:17 Labs: Abnormal Lab Results - Last 24 Hours (Table) 04/17/19 04/18/19 04/18/19 Range/Units 13:45 06:17 06:17 WBC 11.2 H (3.8-10.6) k/uL RBC 3.89 L (4.30-5.90) m/uL Hgb 10.0 L (13.0-17.5) gm/dL Hct 33.5 L (39.0-53.0) % MCHC 29.9 L (31.0-37.0) g/dL RDW 17.9 H (11.5-15.5) % Neutrophils # 9.2 H (1.3-7.7) k/uL D-Dimer 8.06 H (<0.60) mg/L FEU Chloride 111 H (98-107) mmol/L Creatinine 1.36 H (0.66-1.25) mg/dL Calcium 8.2 L (8.4-10.2) mg/dL Microbiology - Last 24 Hours (Table) 04/16/19 20:00 Blood Culture - Preliminary Blood No Growth after 24 hours 04/17/19 06:02 Urine Culture - Preliminary Urine,Voided Assessment and Plan Assessment: Impression: 1 altered mentation currently under investigation, consider underlying infection/septic event. Consider pneumonia versus UTI. CAT scan from [facility] and [facility] showed chronic changes without any acute abnormalities. He seems to have improved and the patient is following commands and answering questions appropriately 2 extreme debility with motor weakness involving the lower extremities bilaterally 3 recurrent falls with a recent left hip ORIF back in 2018 and subsequent pelvic fracture and March 2019 4 COPD currently inactive in stable 5 Coronary artery disease with previous coronary stenting, 6 previous history of a permanent pacemaker insertion 7 abdominal aortic aneurysm with insertion of an endovascular stent graft 8 history of orthostatic hypotension, predisposing this patient at increased risk of fall, currently on midodrine 9 history of frequent falls, history of left hip fracture, history of pelvic fracture 10 hyperlipidemia 11 history of atrial fibrillation 12 hyperlipidemia 13 melanoma resected back in June 2000, 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 14 macular degeneration 15 increased alkaline phosphatase, within normal LFT. Rule out secondary to chronic bone disease 16 hyperchloremic hypernatremia, improving 17 acute kidney injury secondary to intravascular volume depletion 18 metabolic alkalosis secondary to intravascular volume depletion, improving Plan: The patient was seen and evaluated by Dr. Bowen. Modified barium swallow revealed normal deglutition study. She is more awake and alert today. Continues with a loose nonproductive cough. Add flutter valve. Continue bronchodilators, Symbicort, Zosyn. Increase his activity as tolerated. We'll continue to follow. I, the cosigning physician, performed a history & physical examination of the patient. Lungs sounds bilateral scattered rhonchi. Maintaining good O2 saturations in the 90s on 3 L/m per nasal cannula. I discussed the assessment and plan of care with my nurse practitioner, Oliva Pizarro. I attest to the above note as dictated by her.
--- NOTE | 2019-04-18 11:34 | US ---
EXAMINATION TYPE: US venous doppler duplex LE DATE OF EXAM: 04/18/2019 9:32 AM COMPARISON: NONE CLINICAL HISTORY: elev d dimer. No pain, redness or swelling. No hx of blood clots. SIDE PERFORMED: Bilateral TECHNIQUE: The lower extremity deep venous system is examined utilizing real time linear array sonog romie with graded compression, doppler sonography and color-flow sonography. VESSELS IMAGED: External Iliac Vein (EIV) Common Femoral Vein Deep Femoral Vein Greater Saphenous Vein * Femoral Vein Popliteal Vein Small Saphenous Vein * Proximal Calf Veins (* superficial vessels) Grayscale, color doppler, spectral doppler imaging performed of the deep veins of the lower extremit ies. There is normal flow, compressibility, vascular waveforms. Right Leg: Negative for DVT Left Leg: Negative for DVT IMPRESSION: No sonographic evidence of deep venous thrombosis within either bilateral lower extremity .
--- NOTE | 2019-04-18 13:06 | P.PN ---
Subjective 78-year-old male admitted for sepsis which is related to be secondary to urinary tract infection and pneumonia patient is doing much better regarding his mental status issues patient 3 L of onset which we will taper it down green of possibility of discharge and a day or 2 depending on his respiratory status tomorrow. Patient to is complaining of pelvic pain from his pelvic fracture since his fall and pelvic fracture patient from standing has been going down. Constitutional: Denied any fatigue denied any fever. Cardio vascular: denied any chest pain, palpitations Gastrointestinal denied any nausea vomiting Pulmonary: Denied any shortness of breath cough Neurologic denied any new focal deficits All inpatient medications were reviewed and appropriate changes in these medications as dictated in the interval history and assessment and plan. Objective - Vital Signs Vital signs: Vital Signs Temp 97.7 F 04/18/19 07:00 Pulse 93 04/18/19 10:15 Resp 15 04/18/19 07:00 BP 153/100 04/18/19 07:00 Pulse Ox 95 04/18/19 07:00 Intake & Output 04/17/19 04/18/19 04/18/19 18:59 06:59 18:59 Intake Total 600 120 Output Total 350 300 Balance -350 300 120 Weight 57.27 kg Intake: Intake, IV Titration 600 Amount Piperacillin-Tazobactam 3 200 .375 gm In Sodium Chloride 0.9% 100 ml @ 25 mls/hr IVPB Q8H JUAN Rx#: [id number] Sodium Chloride 0.9% 1, 400 000 ml @ 75 mls/hr IV . [id number] JUAN with Potassium Chloride 20 meq with Mvi, Adult No.4 with Vit K 10 ml with Thiamine 100 mg with Folic Acid 1 mg Rx#: [id number] Oral 120 Output: Urine 350 300 Other: Voiding Method Urinal Urinal Urinal Diaper Diaper # Voids 1 1 1 # Bowel Movements 1 - Exam PHYSICAL EXAMINATION: GENERAL: The patient is alert and oriented x2-3, not in any acute distress. Well developed, well nourished. Patient is at his baseline HEENT: Pupils are round and equally reacting to light. EOMI. No scleral icterus. No conjunctival pallor. Normocephalic, atraumatic. No pharyngeal erythema. No thyromegaly. CARDIOVASCULAR: S1 and S2 present. No murmurs, rubs, or gallops. PULMONARY: Chest is clear to auscultation, no wheezing or crackles. ABDOMEN: Soft, nontender, nondistended, normoactive bowel sounds. No palpable organomegaly. MUSCULOSKELETAL: No joint swelling or deformity. EXTREMITIES: No cyanosis, clubbing, or pedal edema. NEUROLOGICAL: Gross neurological examination did not reveal any focal deficits. SKIN: No rashes. - Labs CBC & Chem 7: 04/18/19 06:17 04/18/19 06:17 Labs: Abnormal Lab Results - Last 24 Hours (Table) 04/17/19 04/18/19 04/18/19 Range/Units 13:45 06:17 06:17 WBC 11.2 H (3.8-10.6) k/uL RBC 3.89 L (4.30-5.90) m/uL Hgb 10.0 L (13.0-17.5) gm/dL Hct 33.5 L (39.0-53.0) % MCHC 29.9 L (31.0-37.0) g/dL RDW 17.9 H (11.5-15.5) % Neutrophils # 9.2 H (1.3-7.7) k/uL D-Dimer 8.06 H (<0.60) mg/L FEU Chloride 111 H (98-107) mmol/L Creatinine 1.36 H (0.66-1.25) mg/dL Calcium 8.2 L (8.4-10.2) mg/dL Microbiology - Last 24 Hours (Table) 04/17/19 06:02 Urine Culture - Final Urine,Voided Maria Elena albicans 04/16/19 20:00 Blood Culture - Preliminary Blood No Growth after 24 hours Assessment and Plan Plan: -Altered mental status: Seconded believed secondary to toxic encephalopathy from infection patient is being treated for both UTI and pneumonia patient is pleasant and Zosyn as patient was already partially treated all the microbiology so far negative. -Acute hypoxic respiratory failure secondary to possibly pneumonia will taper down the oxygen patient doesn't use any oxygen at home -COPD without any acute exacerbation -Generalized deconditioning with the significant by lateral lower extremity weakness patient will be discharged to subacute rehabilitation -Coronary artery disease with previous stenting -The abdominal aneurysm with endovascular stent -Hyperlipidemia -Atrial fibrillation on anticoagulation patient appears to proximal A. fib and patient is presently rate controlled and rhythm controlled -Possibility of dementia which appears to be there is related or Vascular. 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
[2019-04-18] MEDS: LIDOCAINE 5% PATCH TOPICAL SCH (14:31)
[2019-04-18] MEDS: MULTIVITAMINS, THERA 1 EACH TAB PO SCH (14:48)
[2019-04-18] MEDS: FOLIC ACID 1 MG TAB PO SCH (14:48)
[2019-04-19] MEDS: SODIUM CHLORIDE 0.9% 1,000 ML with POTASSIUM CHLORIDE 20 MEQ, MVI, ADULT NO.4 WITH VIT ... IV SCH ×5 (02:59)
[2019-04-19] MEDS: PIPERACILLIN-TAZOBACTAM 3.375 GM in SODIUM CHLORIDE 0.9% 100 ML IVPB SCH ×2 (04:24→13:10)
[2019-04-19] MEDS: IPRATROPIUM-ALBUTEROL 3 ML NEB INHALATION SCH ×2 (07:26→12:30)
[2019-04-19] MEDS: SYMBICORT 160-4.5 MCG INHALER INHALATION SCH (07:26)
[2019-04-19 07:43] LABS: Anisocytosis Slight; Basophils % (A) 0 %; Eosinophils # (A) 0.1 k/uL (0-0.7); Eosinophils % (A) 1 %; HCT 33.9 % (39.0-53.0); HGB 10.1 gm/dL (13.0-17.5); Hypochromasia Marked; Lymphocytes # (A) 1.2 k/uL (1.0-4.8); Lymphocytes % (A) 10 %; MCH 25.8 pg (25.0-35.0); MCHC 29.9 g/dL (31.0-37.0); MCV 86.4 fL (80.0-100.0); Mean Platelet Volume 7.1; Monocytes # (A) 0.7 k/uL (0-1.0); Monocytes % (A) 5 %; Neutrophils # (A) 10.7 k/uL (1.3-7.7); Neutrophils % (A) 83 %; Platelet Count 316 k/uL (150-450); RBC 3.93 m/uL (4.30-5.90); RDW 17.9 % (11.5-15.5); WBC 12.9 k/uL (3.8-10.6)
[2019-04-19 08:03] LABS: Calcium 8.1 mg/dL (8.4-10.2); Potassium 3.4 mmol/L (3.5-5.1)
[2019-04-19] MEDS ORDERED: 0.9% NACL WITH KCL 20 MEQ/L 1,000 ML IV SCH (08:30)
[2019-04-19 08:43] VITALS: BP 129/72; PULSE 88; RESP 15; TEMP 98.2
[2019-04-19] MEDS: MIDODRINE 5 MG TAB PO SCH ×2 (08:56→13:11)
[2019-04-19] MEDS: MULTIVITAMINS, THERA 1 EACH TAB PO SCH (08:56)
[2019-04-19] MEDS: APIXABAN 5 MG TAB PO SCH (08:56)
[2019-04-19] MEDS: ATORVASTATIN 20 MG TAB PO SCH (08:56)
[2019-04-19] MEDS: FOLIC ACID 1 MG TAB PO SCH (08:56)
[2019-04-19] MEDS: TAMSULOSIN 0.4 MG CAP.ER.24H PO SCH (08:57)
[2019-04-19] MEDS: FLUDROCORTISONE 0.1 MG TAB PO SCH (08:57)
[2019-04-19] MEDS: CLOPIDOGREL 75 MG TAB PO SCH (08:57)
[2019-04-19] MEDS: EZETIMIBE 10 MG TAB PO SCH (08:57)
[2019-04-19] MEDS: PANTOPRAZOLE 40 MG/10 ML VIAL IVP SCH (08:57)
[2019-04-19] MEDS: FLUTICASONE 50MCG/SPRAY NASAL 16GM EA NOSTRIL SCH (08:57)
[2019-04-19] MEDS: CYANOCOBALAMIN 500 MCG TAB PO SCH (08:57)
[2019-04-19] MEDS: LIDOCAINE 5% PATCH TOPICAL SCH (08:59)
[2019-04-19] MEDS: POLYETHYLENE GLYCOL 3350 17 GM POWD.PACK PO SCH (08:59)
[2019-04-19] MEDS ORDERED: POTASSIUM CHLORIDE ER 20 MEQ TAB.ER PO STA (11:39)
--- NOTE | 2019-04-19 12:30 | P.DS ---
Providers Date of admission: 04/16/19 17:28 Attending physician: Marcus Samayoa MD Consults: 04/16/19 19:28 Consult Physician Urgent Consulting Provider: Sudheer Judd Consult Reason/Comments: suspected aspiration pneumonia Do you want consulting provider notified?: Yes 04/16/19 19:30 Consult Physician Routine Consulting Provider: Will Moreno Consult Reason/Comments: New onset AFib Do you want consulting provider notified?: Yes, Notify in am Primary care physician: Sudheer Amin [facility] Course: 78-year-old male admitted for sepsis which is related to be secondary to urinary tract infection and pneumonia patient is doing much better regarding his mental status issues patient 3 L of onset which we will taper it down green of possibility of discharge and a day or 2 depending on his respiratory status tomorrow. Patient to is complaining of pelvic pain from his pelvic fracture since his fall and pelvic fracture patient from standing has been going down. 04/19/2019 Patient is presently on 2 L of onset and will try to wean off oxygen before discharge if not patient will be discharged to [place] and which can be tapered down at the subacute rehabilitation. Patient is doing much better patient mental status is at his baseline. She has coretta in the urine, patient doesn't have any Almendarez catheter, patient will be discharged on Augmentin for 5 more days and flucanazole for 5 more days. Patient was started on Eliquis which will be continued. Patient had history of proximal A. fib in the past, patient is also on Plavix. Patient had stents in the past PHYSICAL EXAMINATION: GENERAL: The patient is alert and oriented x3, not in any acute distress. Well developed, well nourished. HEENT: Pupils are round and equally reacting to light. EOMI. No scleral icterus. No conjunctival pallor. Normocephalic, atraumatic. No pharyngeal erythema. No thyromegaly. CARDIOVASCULAR: S1 and S2 present. No murmurs, rubs, or gallops. PULMONARY: Chest is clear to auscultation, no wheezing or crackles. ABDOMEN: Soft, nontender, nondistended, normoactive bowel sounds. No palpable organomegaly. MUSCULOSKELETAL: No joint swelling or deformity. EXTREMITIES: No cyanosis, clubbing, or pedal edema. NEUROLOGICAL: Gross neurological examination did not reveal any focal deficits. SKIN: No rashes. Assessment and Plan Plan: -Altered mental status: Seconded believed secondary to toxic encephalopathy from infection patient is being treated for both UTI and pneumonia patient will be discharged on 5 more days of Augmentin -Acute hypoxic respiratory failure secondary to possibly pneumonia, isn't applicable as mentioned above -COPD without any acute exacerbation -Generalized deconditioning with the significant by lateral lower extremity weakness patient will be discharged to subacute rehabilitation -Coronary artery disease with previous stenting -The abdominal aneurysm with endovascular stent -Hyperlipidemia -Atrial fibrillation on anticoagulation patient appears to proximal A. fib and patient is presently rate controlled and rhythm controlled -Toxic encephalopathy secondary to infection Plan - Discharge Summary New Discharge Prescriptions: New Amoxicillin/Potassium Clav [Augmentin 875-125 Tablet] 1 tab PO Q12HR #10 tab Apixaban [Eliquis] 5 mg PO BID #60 tab Fluconazole [Diflucan] 100 mg PO DAILY #5 tablet Continue Tamsulosin HCl [Flomax] 0.4 mg PO DAILY Polyethylene Glycol 3350 [Miralax] 17 gm PO DAILY Multivitamins, Thera [Multivitamin (formulary)] 1 tab PO DAILY@1200 Midodrine HCl [ProAmatine] 20 mg PO TID Fluticasone Nasal [place] [Flonase Nasal [place]] 2 spr EA NOSTRIL DAILY Ipratropium-Albuterol Nebulize [Duoneb 0.5 mg-3 mg/3 ml Soln] 3 ml INHALATION RT-TID PRN PRN Reason: Shortness Of Breath Fludrocortisone [Florinef] 0.1 mg PO DAILY Ezetimibe [Zetia] 10 mg PO DAILY Cyanocobalamin (Vitamin B-12) [Vitamin B-12] 1,000 mcg PO DAILY Clopidogrel Bisulfate [Plavix] 75 mg PO DAILY Budesonide/Formoterol Fumarate [Symbicort 160-4.5 Mcg Inhaler] 2 puff INHALATION RT-BID Atorvastatin Calcium [Lipitor] 20 mg PO DAILY Acetaminophen [Tylenol] 500 mg PO Q4-6H PRN PRN Reason: Pain Folic Acid 1 mg PO DAILY@1200 traMADol HCL [Ultram] 50 mg PO TID PRN #12 tablet PRN Reason: Pain Discontinued Pyridostigmine [Mestinon] 60 mg PO TID Discharge Medication List Acetaminophen [Tylenol] 500 mg PO Q4-6H PRN 04/16/19 [History] Atorvastatin Calcium [Lipitor] 20 mg PO DAILY 04/16/19 [History] Budesonide/Formoterol Fumarate [Symbicort 160-4.5 Mcg Inhaler] 2 puff INHALATION RT-BID 04/16/19 [History] Clopidogrel Bisulfate [Plavix] 75 mg PO DAILY 04/16/19 [History] Cyanocobalamin (Vitamin B-12) [Vitamin B-12] 1,000 mcg PO DAILY 04/16/19 [History] Ezetimibe [Zetia] 10 mg PO DAILY 04/16/19 [History] Fludrocortisone [Florinef] 0.1 mg PO DAILY 04/16/19 [History] Fluticasone Nasal [place] [Flonase Nasal [place]] 2 spr EA NOSTRIL DAILY 04/16/19 [History] Folic Acid 1 mg PO DAILY@1200 04/16/19 [History] Ipratropium-Albuterol Nebulize [Duoneb 0.5 mg-3 mg/3 ml Soln] 3 ml INHALATION RT-TID PRN 04/16/19 [History] Midodrine HCl [ProAmatine] 20 mg PO TID 04/16/19 [History] Multivitamins, Thera [Multivitamin (formulary)] 1 tab PO DAILY@1200 04/16/19 [History] Polyethylene Glycol 3350 [Miralax] 17 gm PO DAILY 04/16/19 [History] Tamsulosin HCl [Flomax] 0.4 mg PO DAILY 04/16/19 [History] Amoxicillin/Potassium Clav [Augmentin 875-125 Tablet] 1 tab PO Q12HR #10 tab 04/19/19 [Rx] Apixaban [Eliquis] 5 mg PO BID #60 tab 04/19/19 [Rx] Fluconazole [Diflucan] 100 mg PO DAILY #5 tablet 04/19/19 [Rx] traMADol HCL [Ultram] 50 mg PO TID PRN #12 tablet 04/19/19 [Rx] Activity/Diet/Wound Care/Special Instructions: Return to [facility] for rehab Discharge Disposition: TRANSFER TO [facility]/F
--- NOTE | 2019-04-19 17:29 | P.PN ---
Subjective Progress Note Date: 04/19/19 Principal diagnosis: Altered mental status This is a 78-year-old male patient who came into respiratory of altered mental status and declining health status in general. This patient was involved in a fall and the left hip fracture in the beginning of 2018. Following that he had another fall sustaining a pelvic fracture for which she was sent to [facility] and following that the patient was transferred to [facility] where he was supposed to undergo rehabilitation. Nevertheless, according to the , his condition is been poor. Point where the patient never got ambulatory he was essentially bedridden. His nutrition was also poor as the patient had dropped significantly amount of weight and current BMI is down to 17.1. He has multiple medical problems and comorbidities. He is known to have coronary artery disease with previous coronary stenting and has a pacemaker in place. He has a abdominal aortic aneurysm that was stented endovascularly back in October 2018. His severe COPD with oxygen dependent respiratory failure, chronic in addition to hyperlipidemia, paroxysmal atrial fibrillation, macular degeneration, melanoma, squamous cell carcinoma of the skin, and osteoarthritis. Most significant finding for now as his chronic debility and malnourishment and limited range of motion. I was able to retrieve the records from [facility] and I started the patient had a CAT scan of the brain that showed DULSER atrophy without any acute abnormalities. The patient was started on broad-spectrum antibiotics including a combination of Zosyn and vancomycin as the patient's chest x-ray showed chronic interstitial changes and pneumonia was considered. Blood gases showed an acute respiratory alkalosis with a pH of 7.66 with a pCO2 of 25. The patient was quite dehydrated with hypernatremia. Urinalysis was also abnormal with some few WBCs and rare bacteria. No nausea. No vomiting. No aspiration. He is swallow was however questionable and for that reason the patient was sent over to a very swallow. This initial evaluation was done at [facility]. For now, the patient has a white cell count of 8.2. Hemoglobin is at 10.2. Sodium was 146. BUN is 15 with a creatinine of 1.34 improved since yesterday. D-dimer was elevated at 8, and the patient has an elevated alkaline phosphatase of 523 with normal AST and ALP and bilirubin. Calcium level is at 8.1. UA showing 35 WBCs. Cultures are still pending for now. Chest x-ray findings are similar to the ones and [facility] and the patient is currently liters of oxygen nasal cannula with oxygen 98%. He is awake and alert and communicating and answering questions appropriately. His mucous membranes are extremely dry. The swallow evaluation was repeated and the patient was found to have normal study. The patient is seen today 04/18/2019 in follow-up on the regular medical floor. He is much more awake and alert today as compared to yesterday. Denies any worsening shortness of breath. He does have a loose nonproductive cough. Maintaining O2 saturations in the mid 90s on 3 L/m per nasal cannula. He's been afebrile. Blood culture reveals no growth to date. Urine culture pending. White count 11.2. Hemoglobin 10.0. Creatinine 1.36. He remains on DuoNeb inhalations, Symbicort. IV Zosyn. Anticoagulated with Eliquis. The patient is seen today 04/19/2019 in follow-up on the regular medical floor. He is resting comfortably in place. Awake and alert in no acute distress. He denies any worsening shortness of breath, cough or congestion. He is able to clear his secretions. He is maintaining good O2 saturations in the low 90s on room air. Blood culture reveals no growth. White count 12.9. Creatinine 1.18. He has been maintained on DuoNeb inhalations, Symbicort, antibiotics in the form of Zosyn. Objective - Vital Signs Vital signs: Vital Signs Temp 98.2 F 04/19/19 07:00 Pulse 80 04/19/19 07:40 Resp 15 04/19/19 07:00 BP 129/72 04/19/19 07:00 Pulse Ox 92 L 04/19/19 11:41 Intake & Output 04/18/19 04/19/19 04/19/19 18:59 06:59 18:59 Intake Total 1385 1170 472 Output Total 5 5 Balance 1380 1165 472 Intake: Intake, IV Titration 625 1050 Amount Piperacillin-Tazobactam 3 100 200 .375 gm In Sodium Chloride 0.9% 100 ml @ 25 mls/hr IVPB Q8H JUAN Rx#: [id number] Sodium Chloride 0.9% 1, 525 850 000 ml @ 75 mls/hr IV . [id number] JUAN with Potassium Chloride 20 meq with Mvi, Adult No.4 with Vit K 10 ml with Thiamine 100 mg with Folic Acid 1 mg Rx#: [id number] Oral 760 120 472 Output: Urine 2 2 Stool 3 3 Other: Voiding Method Urinal Urinal Urinal Diaper Diaper Diaper # Voids 1 2 2 - Exam Gen. appearance Reveals a thin cachectic frail 78-year-old gentleman. BMI of 17.1, more alert, oriented, no acute distress on room air. Head exam was generally normal. There was no scleral icterus or corneal arcus. Mucous membranes were moist. Neck was supple and without jugular venous distension, thyromegaly, or carotid bruits. Carotids were easily palpable bilaterally. There was no adenopathy. Mucus membranes are extremely dry and the patient has poor dental condition Lungs sounds are diminished bilaterally. Scattered rhonchi. Cardiac exam revealed the PMI to be normally situated and sized. The rhythm was regular and no extrasystoles were noted during several minutes of auscultation. The first and second heart sounds were normal and physiologic splitting of the second heart sound was noted. There were no murmurs, rubs, clicks, or gallops. Abdominal exam revealed normal bowel sounds. The abdomen was soft, non-tender, and without masses, organomegaly, or appreciable enlargement of the abdominal aorta. Extremities revealed very atrophied muscles specially in lower extremities bilaterally. Pulses are diminished. They're present. No cyanosis. No clubbing. Skin is extremely thin and brittle and the patient has areas of skin abrasions throughout the upper and lower extremities. No open wounds. No open sores. No cellulitis. Neurologically the patient is awake and alert and following commands and answering questions appropriately. Motor weakness present especially in lower extremities with motor function of 2-3/5. No Babinski. No clonus. - Labs CBC & Chem 7: 04/19/19 07:07 04/19/19 07:07 Labs: Abnormal Lab Results - Last 24 Hours (Table) 04/19/19 04/19/19 Range/Units 07:07 07:07 WBC 12.9 H (3.8-10.6) k/uL RBC 3.93 L (4.30-5.90) m/uL Hgb 10.1 L (13.0-17.5) gm/dL Hct 33.9 L (39.0-53.0) % MCHC 29.9 L (31.0-37.0) g/dL RDW 17.9 H (11.5-15.5) % Neutrophils # 10.7 H (1.3-7.7) k/uL Potassium 3.4 L (3.5-5.1) mmol/L Chloride 113 H (98-107) mmol/L Glucose 100 H (74-99) mg/dL Calcium 8.1 L (8.4-10.2) mg/dL Microbiology - Last 24 Hours (Table) 04/16/19 20:00 Blood Culture - Preliminary Blood No Growth after 48 hours Assessment and Plan Assessment: Impression: 1 altered mentation currently under investigation, consider underlying infection/septic event. Consider pneumonia versus UTI. CAT scan from [facility] and [facility] showed chronic changes without any acute abnormalities. He seems to have improved and the patient is following commands and answering questions appropriately 2 extreme debility with motor weakness involving the lower extremities bilaterally 3 recurrent falls with a recent left hip ORIF back in 2018 and subsequent pelvic fracture and March 2019 4 COPD currently inactive in stable 5 Coronary artery disease with previous coronary stenting, 6 previous history of a permanent pacemaker insertion 7 abdominal aortic aneurysm with insertion of an endovascular stent graft 8 history of orthostatic hypotension, predisposing this patient at increased risk of fall, currently on midodrine 9 history of frequent falls, history of left hip fracture, history of pelvic fracture 10 hyperlipidemia 11 history of atrial fibrillation 12 hyperlipidemia 13 melanoma resected back in June 2000, 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 14 macular degeneration 15 increased alkaline phosphatase, within normal LFT. Rule out secondary to chronic bone disease 16 hyperchloremic hypernatremia, improving 17 acute kidney injury secondary to intravascular volume depletion 18 metabolic alkalosis secondary to intravascular volume depletion, improving Plan: The patient was seen and evaluated by Dr. Bowen. He is more awake and alert today. Stable from the pulmonary standpoint. On room air. We will follow as needed. I, the cosigning physician, performed a history & physical examination of the patient. Lungs sounds bilateral scattered rhonchi. Maintaining good O2 saturations in the 90s on room air. I discussed the assessment and plan of care with my nurse practitioner, Oliva Pizarro. I attest to the above note as dictated by her.
== END 2019-04-19 16:00 | DRG 871 ==
LOC: 4SSUR 17:28
PROVIDERS: ADMIT Internal Medicine; ATTEND Internal Medicine
DX: A41.9 Sepsis, unspecified organism (principal); E43 Unspecified severe protein-calorie malnutrition; G92 Toxic encephalopathy; J18.9 Pneumonia, unspecified organism; J96.21 Acute and chronic respiratory failure with hypoxia; E87.0 Hyperosmolality and hypernatremia; E87.3 Alkalosis; J44.0 Chronic obstructive pulmonary disease with (acute) lower respiratory infection; N17.9 Acute kidney failure, unspecified; N39.0 Urinary tract infection, site not specified; Z68.1 Body mass index [BMI] 19.9 or less, adult; Z85.820 Personal history of malignant melanoma of skin; Z85.828 Personal history of other malignant neoplasm of skin; E78.5 Hyperlipidemia, unspecified; E86.0 Dehydration; E87.8 Other disorders of electrolyte and fluid balance, not elsewhere classified; H35.30 Unspecified macular degeneration; I25.10 Atherosclerotic heart disease of native coronary artery without angina pectoris; I48.0 Paroxysmal atrial fibrillation; I71.4 Abdominal aortic aneurysm, without rupture; M19.90 Unspecified osteoarthritis, unspecified site; R13.10 Dysphagia, unspecified; Z79.01 Long term (current) use of anticoagulants; Z79.02 Long term (current) use of antithrombotics/antiplatelets; Z79.51 Long term (current) use of inhaled steroids; Z79.899 Other long term (current) drug therapy; Z83.3 Family history of diabetes mellitus; Z86.79 Personal history of other diseases of the circulatory system; Z87.891 Personal history of nicotine dependence; Z91.81 History of falling; Z95.0 Presence of cardiac pacemaker; Z95.5 Presence of coronary angioplasty implant and graft; Z99.81 Dependence on supplemental oxygen; Z88.6 Allergy status to analgesic agent; Z88.5 Allergy status to narcotic agent; Z88.2 Allergy status to sulfonamides; L89.152 Pressure ulcer of sacral region, stage 2; Z74.01 Bed confinement status
CPT/HCPCS: 70450; 71045; 74230; 80048; 80053; 81001; 82533; 85025; 85379; 87040; 87086; 87324; 93005; 93970; 94640; 94667; 94760

== ENCOUNTER 2019-05-17 12:30 | Inpatient (IN) | payer MEDICARE ==
[2019-05-17] MEDS ORDERED: NALOXONE 0.4 MG/ML 1 ML VIAL IV PRN (15:42)
[2019-05-17] MEDS ORDERED: ALPRAZolam 0.25 MG TAB PO PRN (16:14)
[2019-05-17] MEDS ORDERED: IPRATROPIUM-ALBUTEROL 3 ML NEB INHALATION PRN (16:16)
[2019-05-17] MEDS ORDERED: LORazepam 0.5 MG TAB PO PRN (16:16)
[2019-05-17] MEDS: ACETAMINOPHEN TAB 500 MG TAB PO PRN (16:33)
[2019-05-17] MEDS: PYRIDOSTIGMINE 60 MG TAB PO SCH ×2 (16:33→22:43)
--- NOTE | 2019-05-17 16:34 | XR ---
EXAMINATION TYPE: XR chest 1V portable DATE OF EXAM: 05/17/2019 Comparison: 04/16/2019 Clinical History: 78-year-old male with CHF Findings: Left anterior chest wall pacemaker generator with right atrial and right ventricular leads. Heart bor derline enlarged. Elongation/ectasia of the thoracic aorta redemonstrated. Mild interstitial prominen ce and mild hyperinflation is unchanged. No consolidation or pleural effusion. Old healed right-sided rib fracture deformities. Impression: Cardiomegaly. Similar elongation/ectasia of the thoracic aorta. Background COPD. Chronic changes with out definite acute process.
[2019-05-17] MEDS: MIDODRINE 5 MG TAB PO SCH (17:08)
[2019-05-17] MEDS: 0.9% NACL WITH KCL 20 MEQ/L 1,000 ML with MVI, ADULT NO.4 WITH VIT K 10 ML, THIAMINE 10... IV SCH ×4 (17:09)
[2019-05-17 17:10] LABS: Anisocytosis Slight; Basophils # (A) 0.2 k/uL (0-0.2); Basophils % (A) 2 %; Eosinophils # (A) 0.1 k/uL (0-0.7); Eosinophils % (A) 1 %; HCT 33.5 % (39.0-53.0); HGB 10.4 gm/dL (13.0-17.5); Hypochromasia Marked; Lymphocytes # (A) 1.1 k/uL (1.0-4.8); Lymphocytes % (A) 14 %; MCH 26.7 pg (25.0-35.0); MCV 86.2 fL (80.0-100.0); Mean Platelet Volume 6.7; Monocytes # (A) 0.4 k/uL (0-1.0); Monocytes % (A) 5 %; Neutrophils # (A) 6.3 k/uL (1.3-7.7); Neutrophils % (A) 76 %; Platelet Count 351 k/uL (150-450); RBC 3.89 m/uL (4.30-5.90); RDW 16.7 % (11.5-15.5); WBC 8.3 k/uL (3.8-10.6)
[2019-05-17 17:19] LABS: Albumin 2.9 g/dL (3.5-5.0); Calcium 8.6 mg/dL (8.4-10.2); Magnesium 2.1 mg/dL (1.6-2.3); Phosphorus 3.5 mg/dL (2.5-4.5); Potassium 4.3 mmol/L (3.5-5.1); Total Bilirubin 0.6 mg/dL (0.2-1.3); Total Protein 6.3 g/dL (6.3-8.2)
[2019-05-17 17:55] LABS: Appearance,Urine Clear (Clear); Bilirubin,Urine Negative (Negative); Blood,Urine Negative (Negative); Color,Urine Yellow; Glucose,Urine (UA) Negative (Negative); Ketones,Urine Negative (Negative); Leukocyte Esterase,Urine Small (Negative); Mucus,Urine Rare /hpf; Nitrite,Urine Negative (Negative); Protein,Urine Trace (Negative); RBC,Urine <1 /hpf (0-5); Specific Gravity,Urine 1.019 (1.001-1.035); Urobilinogen,Urine <2.0 mg/dL (<2.0); WBC,Urine 11 /hpf (0-5)
--- NOTE | 2019-05-17 18:58 | HP ---
HISTORY AND PHYSICAL DATE OF SERVICE: 05/17/2019 CHIEF COMPLAINT: Change in mental status. HISTORY OF PRESENT ILLNESS: This 78-year-old gentleman with a past medical history of multiple medical problems, including COPD, history of pneumonia, CAD, history of stenting, history of COPD, history of pacemaker implant, history of abdominal aortic aneurysm with endovascular stenting, history of orthostatic hypotension, history of frequent falls, history of left hip fracture, hyperlipidemia, history of atrial fibrillation, hyperlipidemia, being followed by Dr. Farnsworth in the outpatient setting, recently had a fall a few months ago and had a pelvis fracture. The patient was treated initially in [facility] and subsequently was sent to rehab in [place]. The patient had multiple episodes of change in mental status which were thought to be related to UTI with sepsis, and the patient improved significantly. But currently patient in the rehab had a change in mental status. UTI was suspected and treated with IV Levaquin recently. Because of lack of improvement and the patient being confused, [facility] physician discussed the case at length with me and the patient was transferred to [facility] for further evaluation and treatment. There is no history of any fever, rigor or chills at this time. Patient is unable to give a coherent history. Patient is slightly confused. Most of the history is taken from my discussion with staff, review of the chart and discussion with the family; his son and the are at the bedside. PAST MEDICAL HISTORY: 1. History of COPD. 2. History of pneumonia. 3. History of CAD. 4. History of pacemaker. 5. History of abdominal aortic aneurysm. 6. History of orthostatic hypotension. 7. History of frequent falls. 8. Left hip fracture. 9. History of hyperlipidemia. 10.History of atrial fibrillation. 11.Hyperlipidemia. 12.History of CAD, stent. HOME MEDICATIONS: 1. Ultram 50 mg t.i.d. p.r.n. 2. Flomax 0.4 daily. 3. MiraLAX 17 grams daily. 4. Multivitamins 1 p.o. daily. 5. ProAmatine 20 mg p.o. t.i.d. 6. DuoNeb q.i.d. and p.r.n. 7. Folic acid 1 mg daily. 8. Flonase 2 sprays daily. 9. Florinef 0.1 daily. 10.Diflucan 100 mg p.o. daily. 11.Zetia 10 mg p.o. daily. 12.Vitamin B12 1000 mg p.o. daily. 13.Plavix 75 mg p.o. daily. 14.Symbicort 160/4.5 two puffs b.i.d. 15.Lipitor 20 mg p.o. daily. 16.Eliquis 5 mg p.o. b.i.d. 17.Augmentin 875 mg p.o. b.i.d. 18.Tylenol 500 mg q.4-6 hours p.r.n. ALLERGIES: 1. NORCO. 2. ADHESIVE TAPES. 3. BACTRIM. Family history, social history, review of systems could not be taken from the patient, but according the chart there is previous history of smoking, history of dementia in the family. Review of systems could not be taken. PHYSICAL EXAMINATION: Patient is conscious but confused, dysarthric. Pulse 92, blood pressure 143/89, respiration 18, temperature 98.1, pulse ox 97% on 2 L. HEENT: Conjunctivae normal. Oral mucosa moist. NECK: No jugular venous distention. No carotid bruit. No lymph node enlargement. CARDIOVASCULAR SYSTEM: S1, S2 muffled. No S3. No S4. RESPIRATORY SYSTEM: Breath sounds diminished at the bases. A few scattered rhonchi. No crackles. ABDOMEN: Soft, non-tender. No mass palpable. LEGS: No edema. No swelling. NERVOUS SYSTEM: Higher functions as mentioned earlier. Moves all 4 limbs. No focal deficit. Diffusely weak and diffuse emaciation also present. LYMPHATICS: No lymph node palpable in neck, axillae or groin. LABS: Labs are not available at this time. ASSESSMENT: 1. Change in mental status, possible acute delirium, possible acute metabolic encephalopathy, multifactorial. 2. Rule out acute urinary tract infection with sepsis. 3. Severe protein-calorie malnutrition. 4. History of recent pelvis fracture and gait dysfunction. 5. History of chronic obstructive pulmonary disease. 6. History of pneumonia. 7. History of coronary artery disease and stenting. 8. History of permanent pacemaker. 9. History of abdominal aortic aneurysm with endovascular stent grafting. 10.History of orthostatic hypotension. 11.History of frequent falls. 12.History of left hip fracture. 13.Hyperlipidemia. 14.History of atrial fibrillation, paroxysmal. 15.History of hyperlipidemia. 16.History of melanoma resection. 17.History of squamous cell carcinoma from the lower lip. 18.History of macular degeneration. 19.History of multiple urinary tract infections and sepsis. 20.History of degenerative joint disease. 21.History of resection of melanoma. RECOMMENDATIONS AND DISCUSSION: In this 78-year-old gentleman who presented with multiple complex medical issues, we will monitor the patient closely, continue the current management, continue with symptomatic treatment. Otherwise at this time I recommend cultures for the possible UTI or sepsis. Otherwise, I would also recommend PT/OT evaluation, dietary consultation for dietary modification and nutritional supplements. Otherwise, resume the home medications. Ensure fluid/electrolyte balance. Overall prognosis is extremely guarded because of multiple complex medical issues, as mentioned earlier. Further recommendations to follow. Discussed with the patient's family at length, who understands and agrees. A copy of this dictation is being forwarded to Dr. Farnsworth, who is the primary physician. Please refer to the order sheet for further details. MMODL / IJN: [id number] / MTDD
[2019-05-17] MEDS: IPRATROPIUM-ALBUTEROL 3 ML NEB INHALATION SCH (19:57)
[2019-05-17] MEDS: SYMBICORT 160-4.5 MCG INHALER INHALATION SCH (19:57)
[2019-05-17] MEDS ORDERED: ALBUTEROL NEBULIZED 2.5 MG/3 ML INHALATION SCH (20:00)
[2019-05-17] MEDS: ATORVASTATIN 20 MG TAB PO SCH (22:43)
[2019-05-17] MEDS: HEPARIN SODIUM,PORCINE 5,000 UNIT/ML 1 ML VIAL SQ SCH (22:43)
[2019-05-17] MEDS: risperiDONE 0.25 MG TAB PO SCH (22:44)
[2019-05-17] MEDS: TAMSULOSIN 0.4 MG CAP.ER.24H PO SCH (22:44)
[2019-05-18] MEDS: MIDODRINE 5 MG TAB PO SCH ×3 (06:57→17:55)
[2019-05-18] MEDS: PANTOPRAZOLE 40 MG TABLET PO SCH (06:57)
[2019-05-18] MEDS: IPRATROPIUM-ALBUTEROL 3 ML NEB INHALATION SCH ×4 (07:45→19:13)
[2019-05-18] MEDS: SYMBICORT 160-4.5 MCG INHALER INHALATION SCH ×2 (07:59→19:13)
[2019-05-18 08:31] LABS: Calcium 8.6 mg/dL (8.4-10.2); Potassium 4.3 mmol/L (3.5-5.1)
[2019-05-18 08:41] LABS: Anisocytosis Slight; Basophils # (A) 0.1 k/uL (0-0.2); Basophils % (A) 1 %; Eosinophils # (A) 0.1 k/uL (0-0.7); Eosinophils % (A) 1 %; HCT 33.9 % (39.0-53.0); HGB 10.2 gm/dL (13.0-17.5); Hypochromasia Marked; Lymphocytes # (A) 1.4 k/uL (1.0-4.8); Lymphocytes % (A) 15 %; MCHC 30.2 g/dL (31.0-37.0); MCV 86.1 fL (80.0-100.0); Mean Platelet Volume 7.8; Monocytes # (A) 0.6 k/uL (0-1.0); Monocytes % (A) 6 %; Neutrophils % (A) 75 %; Platelet Count 377 k/uL (150-450); RBC 3.93 m/uL (4.30-5.90); RDW 17.1 % (11.5-15.5); WBC 9.3 k/uL (3.8-10.6)
[2019-05-18] MEDS ORDERED: LOPERAMIDE 2 MG CAP PO PRN (08:49)
[2019-05-18] MEDS: HEPARIN SODIUM,PORCINE 5,000 UNIT/ML 1 ML VIAL SQ SCH ×2 (10:13→20:47)
[2019-05-18] MEDS: PYRIDOSTIGMINE 60 MG TAB PO SCH ×3 (10:14→20:49)
[2019-05-18] MEDS: FLUDROCORTISONE 0.1 MG TAB PO SCH (10:14)
[2019-05-18] MEDS: CLOPIDOGREL 75 MG TAB PO SCH (10:14)
[2019-05-18] MEDS: EZETIMIBE 10 MG TAB PO SCH (10:15)
[2019-05-18] MEDS: CYANOCOBALAMIN 500 MCG TAB PO SCH (10:15)
--- NOTE | 2019-05-18 12:29 | P.CON ---
Consult Note - . Consult date: 05/18/19 Assessment/Plan:: Physical pleasant 78-year-old male who has an extensive past medical history that includes COPD, pneumonia, CAD, stenting, permanent pacemaker implantation, abdominal aortic aneurysm with endovascular stenting, left hip fracture related to frequent falls, hyperlipidemia, atrial fibrillation. The patient was treated a few months ago for pelvic fracture. He is currently in a rehab center in [place]. During that time he has had multiple episodes of mental status changes that were thought to be caused by a UTI with sepsis. Patient was treated with IV Levaquin at that time. Due to continuation mental status changes patient was transferred from his local hospital to [facility]. Patient was found to have multiple ulcerations in various stages prior to arrival. Patient has been seen by infectious disease and orders were given for dressing changes from Dr. Doan. Discussed with patient and the goals of wound care treatment and what to do wound care center is available to offer outpatient. Due to the location of the patient in continuing to be in rehab and patient declined outpatient services at this time. Continue with the dressing changes as dictated by Dr. Doan. Review Of Systems: Constitutional: No fever, no chills, no night sweats. Reports weight change. Reports weakness, reports fatigue, no lethargy. Integumentary: Reports wounds, no lesions. No rash or pruritus. Reports bruising. No change in hair or nails. General Appearance: Alert, cooperative, no distress, appears stated age. Skin: Skin tear to left medial mcbride, left lateral mcbride, right mcbride, left elbow, right lower arm seizure Limited to skin breakdown dressings are in place clean and dry, pressure injury stage I right hand dressing is intact clean and dry, pressure injury stage II dressing is intact clean and dry ecchymosis noted on bilateral upper extremities 1. Nonhealing ulceration coccyx with pressure component stage II. Continue follow dressing instructions per Dr. Doan. Evaluate surfaces to ensure offloading. Evaluate nutrition status to help with healing. May follow-up with the wound care center in outpatient basis. 2. Nonhealing ulceration right hand with pressure component stage I. As noted above 3. Nonhealing ulceration Limited to skin breakdown. As noted above Thank you for the consult. Any questions please call the wound care center. DNP note has been reviewed and discussed with Dr. Dencklau and the impression and plan of care has been directed as dictated.
--- NOTE | 2019-05-18 14:11 | P.CNNES ---
History of Present Illness Consult date: 05/18/19 Reason for Consult: possible stroke Chief complaint: altered mental status without improvement History of Present Illness: REFERRING PHYSICIAN: Dr. Winter HISTORY OF PRESENT ILLNESS: Thank you for allowing me to evaluate Mr. Juan Bunch. Mr. Bunch is a 78-year-old male with past medical history of COPD, CAD with stenting, pacemaker implant, abdominal aortic aneurysm with endovascular stenting, orthostatic hypotension, frequent falls, left hip fracture, hyperlipidemia, atrial fibrillation, presenting from rehab facility for altered mental status, consulting neurology for altered mental status. Patient's is at bedside providing full history. Patient has had multiple issues this year including a hip replacement, AAA repair, pelvic fracture. Before March 2019, patient was able to carry on conversations, but as his orthostatic hypotension has been severe where patient went to [facility] in [place] for assistance with his orthostatic hypotension, he has fallen multiple times. Patient's been having issues with orthostatic hypotension since about 5 years ago. states that yesterday, the patient initially came to the hospital, she he was more a ltered, but he looks a lot better today. Patient recently had a UTI for which patient was treated with levoquin , which patient usually responds well to. Patient finished his course on Wednesday, but his mental status had not improved, which is why decided to bring patient to the hospital. PAST MEDICAL HISTORY: COPD, CAD with stenting, pacemaker implant, abdominal aortic aneurysm with endovascular stenting, orthostatic hypotension, frequent falls, left hip fracture, hyperlipidemia, atrial fibrillation PAST SURGICAL HISTORY: Hip replacement in September 2018. AAA repair in October 2018. 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 REVIEW OF SYSTEMS: The 14 systems are reviewed and no additional points are identified compared to the review of systems documented history and physical PHYSICAL EXAMINATION: VITAL SIGNS: T 97.9 HR 80 RR 17 low-pressure 149/79 O2 sat 95% on 2 L via nasal cannula GEN.: NAD, pleasant and cooperative HEENT: NCAT, sclera without icterus NECK: Supple SKIN AND EXTREMITIES: Warm to touch, no edema, significantly atrophied legs along with multiple bruises and open wounds from multiple falls. Patient also had a R pinky fracture, for which he had a brace, and it caused a pressure ulcer. NEURO: MENTAL STATUS: Patient alert and oriented to self, place, time. Able to name the current president. Able to spell WORLD backwards. Difficulty with serial 7's. Speech dysarthric but fluent, able to name and repeat, following all commands readily. No right and left disorientation neglect. CRANIAL NERVES II THROUGH XII: II: Pupils are equal and reactive to light symmetrically. No afferent pupillary defect. Visual jama are intact. III, I V, : No ptosis. Extraocular movements full. No nystagmus. V: Facial sensation intact from V1-3. VII. No clear facial asymmetry. VIII: Hearing intact to finger rub bilaterally. IX, X: Symmetric palate elevation. XI: Shoulder shrug intact. XII: Tongue midline without fasciculation or atrophy. MOTOR:Increased tone in b/l UE and LE Resting tremor in b/l hands. Strength is 4+/5 throughout all extremities except LUE which since rotator cuff injury, patient has been having difficulty moving it. Patient uses his R hand to help support the L arm up. SENSORY: Intact to light touch in all 4 extremities. REFLEXES: 2+ throughout. Toes are downgoing. COORDINATION: Finger to nose intact. No dysmetria. Rapid alternating movements with good speed and accuracy. GAIT: Narrow-based and stable. Able to toe/heel/tandem walk DIAGNOSTIC TESTING: LABORATORY: WBC 9.3 hemoglobin 10.2 platelets 377 sodium 144 potassium 4.3 chloride 112 24 BUN 18 creatinine 1.02 AST 64 ALT 37 alk phos 774 urinalysis small leuk esterase, 11 WBC IMAGING: Chest x-ray 05/17/2019: Cardiomegaly. Cerebellar elongation/ectasia of the thoracic aorta. Background COPD. Chronic changes without definite acute process. ASSESSMENT: Mr. Bunch is a 78-year-old male with past medical history of COPD, CAD with stenting, pacemaker implant, abdominal aortic aneurysm with endovascular stenting, orthostatic hypotension, frequent falls, left hip fracture, hyperlipidemia, atrial fibrillation, presenting from rehab facility for altered mental status, consulting neurology for altered mental status. Patient's mental status is good, even to . Patient's exam notable for increased tone in all 4 extremities along with resting tremor and history of orthostatic hypotension and pacemaker placement. 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 MRI brain would help in getting to diagnosis. There is no treatment for MSA other than symptomatic treatment for orthostatic hypotension, tremor, and other autonomic dysfunction. Patient has a pacemaker, and has the information about the pacemaker. Upon reviewing the pacemaker model #, patient has ADVISA MRI pacemaker, which is MRI compatible if complete system is implanted with a SureScan pacemaker and SureScan leads, which it is. RECOMMENDATIONS: 1. Will order MRI brain w/o contrast 2. Neurology will continue to follow. 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, macular degeneration, history of insertion and removal of a heart loop recorder, UTI's, sepsis History of Any Multi-Drug Resistant Organisms: None Reported Past Surgical History: Heart Catheterization With Stent, Hernia Repair, Joint Replacement, Orthopedic Surgery, Pacemaker Additional Past Surgical History / Comment(s): Resection of a melanoma and squamous cell carcinoma of the skin involving the lower lip, shoulder surgery 2007, insertion and removal of a loop recorder, pacemaker insertion 2014, cardiac catheterization and stenting, left hip ORIF in September 2018, shoulder surgery in July 2018, abdominal aortic aneurysm endovascular stent grafting in October 2018 Past Anesthesia/Blood Transfusion Reactions: No Reported Reaction Date of Last Stent Placement:: 1995 Type of Cardiac Device: Permanent Pacemaker Device Placement Date:: 2014 Past Psychological History: No Psychological Hx Reported Smoking Status: Former smoker - Past Family History Father Family Medical History: No Reported History, Dementia Mother Family Medical History: Diabetes Mellitus Medications and Allergies Home Medications Medication Instructions Recorded Confirmed Type Acetaminophen [Tylenol] 1,000 mg PO Q4-6H PRN 04/16/19 05/17/19 History Atorvastatin Calcium [Lipitor] 20 mg PO HS 04/16/19 05/17/19 History Budesonide/Formoterol Fumarate 2 puff INHALATION RT-BID 04/16/19 05/17/19 History [Symbicort 160-4.5 Mcg Inhaler] Clopidogrel Bisulfate [Plavix] 75 mg PO DAILY 04/16/19 05/17/19 History Cyanocobalamin (Vitamin B-12) 1,000 mcg PO DAILY 04/16/19 05/17/19 History [Vitamin B-12] Ezetimibe [Zetia] 10 mg PO DAILY 04/16/19 05/17/19 History Fludrocortisone [Florinef] 0.1 mg PO DAILY 04/16/19 05/17/19 History Midodrine HCl [ProAmatine] 20 mg PO TID 04/16/19 05/17/19 History Tamsulosin HCl [Flomax] 0.4 mg PO HS 04/16/19 05/17/19 History Albuterol Nebulized [Ventolin 2.5 mg INHALATION RT-TID 05/17/19 05/17/19 History Nebulized] Pyridostigmine [Mestinon] 60 mg PO TID 05/17/19 05/17/19 History Allergies Allergy/AdvReac Type Severity Reaction Status Date / Time acetaminophen [From [place]] AdvReac Hallucinati Verified 05/17/19 15:51 ons adhesive tape AdvReac Unknown Verified 05/17/19 15:51 hydrocodone [From [place]] AdvReac Hallucinati Verified 05/17/19 15:51 ons sulfamethoxazole AdvReac Hallucinati Verified 05/17/19 15:51 [From Bactrim] ons trimethoprim [From Bactrim] AdvReac Hallucinati Verified 05/17/19 15:51 ons Physical Examination - Vital Signs Vital Signs: Vital Signs Temp Pulse Pulse Resp BP Pulse Ox 05/18/19 08:07 80 05/18/19 08:04 79 105/60 05/18/19 07:45 80 05/18/19 04:00 97.9 F 74 17 149/79 95 05/18/19 00:00 97.9 F 74 16 153/84 97 05/17/19 20:00 84 18 98 05/17/19 15:00 98.1 F 92 18 146/89 97 05/17/19 14:45 98.1 F 92 18 146/89 97 Intake and Output 05/17/19 05/18/19 05/18/19 22:59 06:59 14:59 Intake Total 436 670 Balance 436 670 Intake: Intake, IV Titration 200 550 Amount 0.9% NaCl with KCl 20 Meq 200 550 /l 1,000 ml @ 50 mls/hr IV .[id number] JUAN with Mvi, Adult No.4 with Vit K 10 ml with Thiamine 100 mg with Folic Acid 1 mg Rx#: [id number] Oral 236 120 Other: Voiding Method Urinal Urinal # Voids 2 4 # Bowel Movements 1 Weight 57.6 kg 57.5 kg Results - Laboratory Findings CBC and BMP: 05/18/19 06:04 05/18/19 06:04 Abnormal Lab Findings: Abnormal Labs 05/17/19 05/17/19 05/17/19 16:34 16:34 17:32 RBC 3.89 L Hgb 10.4 L Hct 33.5 L MCHC RDW 16.7 H Chloride 109 H AST 64 H Alkaline Phosphatase 774 H Albumin 2.9 L Urine Protein Trace H Ur Leukocyte Esterase Small H Urine WBC 11 H Urine Mucus Rare H 05/18/19 05/18/19 06:04 06:04 RBC 3.93 L Hgb 10.2 L Hct 33.9 L MCHC 30.2 L RDW 17.1 H Chloride 112 H AST Alkaline Phosphatase Albumin Urine Protein Ur Leukocyte Esterase Urine WBC Urine Mucus
--- NOTE | 2019-05-18 16:53 | PN ---
PROGRESS NOTE DATE OF SERVICE: This 78-year-old gentleman who was admitted with change in mental status, possible acute delirium, is being closely monitored. Patient has chronic multiple wounds, also. The patient is being closely monitored at this time. Infectious Disease is following the patient closely and the patient was started on empiric antibiotics. Cultures are pending at this time. patient is still confused at this time. Past medical history reviewed. Review of systems could not be taken; the patient is still confused, oriented x1 only. CURRENT MEDICATIONS: Reviewed. They include: 1. Tylenol p.r.n. 2. DuoNeb q.i.d. and p.r.n. 3. Lipitor 20 mg. 4. Symbicort 160/4.5 two puffs b.i.d. 5. Plavix 75 mg p.o. daily. 6. Vitamin B12 1000 mg p.o. daily. 7. Zetia 10 mg p.o. daily. 8. Florinef 0.1 daily. 9. Heparin 5000 units subcutaneously b.i.d. 10.Imodium 2 mg. 11.Ativan. 12.ProAmatine. 13.Narcan. 14.Protonix 40 mg daily. 15.Mestinon 60 mg p.o. t.i.d. 16.Risperdal 0.125 mg at bedtime. 17.Flomax 0.4 at bedtime. PHYSICAL EXAMINATION: Patient is alert and oriented x1. Pulse 78, blood pressure 123/69, respiration 33, temperature 97.6, pulse ox 95% on 2 L. HEENT: Conjunctivae normal. NECK: No jugular venous distention. CARDIOVASCULAR SYSTEM: S1, S2 muffled. RESPIRATORY SYSTEM: Breath sounds diminished at the bases. A few scattered rhonchi and crackles. ABDOMEN: Soft, non-tender. LEGS: No edema. No swelling. NERVOUS SYSTEM: Diffusely weak and wasting. EXAMINATION OF SKIN: Multiple ulcers and sores on both legs and right hand also present. LYMPHATICS: No lymph node palpable in neck, axillae or groin. LABS: WBC 9.3, hemoglobin 10.2. ASSESSMENT: 1. Change in mental status, possible acute delirium, possible acute metabolic encephalopathy, multifactorial. 2. Urinary tract infection with sepsis possibly, present on admission. 3. Diffuse skin lesions with cellulitis. 4. Severe protein-calorie malnutrition. 5. Severe gait dysfunction. 6. History of recent pelvic fracture and gait dysfunction. 7. Chronic obstructive pulmonary disease. 8. History of pneumonia. 9. History of coronary artery disease and stenting. 10.History of permanent pacemaker. 11.History of abdominal aortic aneurysm and endovascular stent grafting. 12.History of orthostatic hypotension. 13.History of frequent falls. 14.History of left hip fracture. 15.Hyperlipidemia. 16.History of atrial fibrillation, paroxysmal. 17.History of hyperlipidemia. 18.History of melanoma resection. 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 20.History of macular degeneration. 21.History of multiple urinary tract infections and sepsis. 22.History of degenerative joint disease. RECOMMENDATIONS AND DISCUSSION: I recommend to continue current medications, continue with the monitoring, symptomatic treatment. Continue with antibiotics. PT/OT evaluation. Follow with multiple consultants. Further recommendations to follow. MMYONYL / TOMN: [id number] / MTDD
[2019-05-18] MEDS: 0.9% NACL WITH KCL 20 MEQ/L 1,000 ML with MVI, ADULT NO.4 WITH VIT K 10 ML, THIAMINE 10... IV SCH ×4 (17:15)
[2019-05-18] MEDS: risperiDONE 0.25 MG TAB PO SCH (20:47)
[2019-05-18] MEDS: TAMSULOSIN 0.4 MG CAP.ER.24H PO SCH (20:47)
[2019-05-18] MEDS: ATORVASTATIN 20 MG TAB PO SCH (20:47)
--- NOTE | 2019-05-19 00:36 | P.CONS ---
History of Present Illness - Reason for Consult Consult date: 05/18/19 Sepsis Requesting physician: Sherita Winter - Chief Complaint Mental status changes wound to the right hand and bilateral lower extremity - History of Present Illness Patient is 78 year male who apparently recently did have a fall with resulting pelvic and right forearm fracture the patient had did have a cast applied to the right forearm that apparently was tight and has led to formation of a wound on the dorsum of his right hand which is currently being treated with local dressing changes at the rehab facility with the patient is currently still staying apparently the patient did have multiple episodes of mental status changes which were thought to be secondary to UTI and some of them has responded to the Levaquin last one did not responded hence the patient has been transferred to this facility for further management patient is currently afebrile denies any headache he knows that his in-hospital no URI symptoms no chest pain or shortness of breath very minimal cough no abdominal pain he was noticed to have some diarrhea and stool for C. diff was sent which came back negative he was not significantly positive infection disease has been consulted for possible sepsis and need for anybody therapy patient also noticed to have a wound on his bilateral lower extremity does not really care for, patient has these and specific dressing that been compliant with them most of the information has been obtained from review the chart and talking to the as the patient himself is not a good historian Review of Systems Positive points has been mentioned in HPI complete review could not be obtained because of the patient mental status Past Medical History Past Medical History: Cancer, COPD, Pneumonia Additional Past Medical History / Comment(s): Coronary artery disease with previous coronary stenting, COPD, previous history of a permanent pacemaker in [facility] abdominal aortic aneurysm with insertion of an endovascular stent graft, history of orthostatic hypotension, history of frequent falls, history of left hip fracture, history of pelvic fracture, hyperlipidemia, history of atrial fibrillation, hyperlipidemia, melanoma resected back in June 2000, 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, macular degeneration, history of insertion and removal of a heart loop recorder, UTI's, sepsis History of Any Multi-Drug Resistant Organisms: None Reported Past Surgical History: Heart Catheterization With Stent, Hernia Repair, Joint Replacement, Orthopedic Surgery, Pacemaker Additional Past Surgical History / Comment(s): Resection of a melanoma and squamous cell carcinoma of the skin involving the lower lip, shoulder surgery 2007, insertion and removal of a loop recorder, pacemaker insertion 2014, cardiac catheterization and stenting, left hip ORIF in September 2018, shoulder surgery in July 2018, abdominal aortic aneurysm endovascular stent grafting in October 2018 Past Anesthesia/Blood Transfusion Reactions: No Reported Reaction Date of Last Stent Placement:: 1995 Type of Cardiac Device: Permanent Pacemaker Device Placement Date:: 2014 Past Psychological History: No Psychological Hx Reported Smoking Status: Former smoker - Past Family History Father Family Medical History: No Reported History, Dementia Mother Family Medical History: Diabetes Mellitus Medications and Allergies Home Medications Medication Instructions Recorded Confirmed Type Acetaminophen [Tylenol] 1,000 mg PO Q4-6H PRN 04/16/19 05/17/19 History Atorvastatin Calcium [Lipitor] 20 mg PO HS 04/16/19 05/17/19 History Budesonide/Formoterol Fumarate 2 puff INHALATION RT-BID 04/16/19 05/17/19 History [Symbicort 160-4.5 Mcg Inhaler] Clopidogrel Bisulfate [Plavix] 75 mg PO DAILY 04/16/19 05/17/19 History Cyanocobalamin (Vitamin B-12) 1,000 mcg PO DAILY 04/16/19 05/17/19 History [Vitamin B-12] Ezetimibe [Zetia] 10 mg PO DAILY 04/16/19 05/17/19 History Fludrocortisone [Florinef] 0.1 mg PO DAILY 04/16/19 05/17/19 History Midodrine HCl [ProAmatine] 20 mg PO TID 04/16/19 05/17/19 History Tamsulosin HCl [Flomax] 0.4 mg PO HS 04/16/19 05/17/19 History Albuterol Nebulized [Ventolin 2.5 mg INHALATION RT-TID 05/17/19 05/17/19 History Nebulized] Pyridostigmine [Mestinon] 60 mg PO TID 05/17/19 05/17/19 History Allergies Allergy/AdvReac Type Severity Reaction Status Date / Time acetaminophen [From [place]] AdvReac Hallucinati Verified 05/17/19 15:51 ons adhesive tape AdvReac Unknown Verified 05/17/19 15:51 hydrocodone [From [place]] AdvReac Hallucinati Verified 05/17/19 15:51 ons sulfamethoxazole AdvReac Hallucinati Verified 05/17/19 15:51 [From Bactrim] ons trimethoprim [From Bactrim] AdvReac Hallucinati Verified 05/17/19 15:51 ons Physical Exam Vitals: Vital Signs Temp Pulse Pulse Resp BP Pulse Ox 05/18/19 08:30 79 15 05/18/19 08:07 80 05/18/19 08:04 79 105/60 05/18/19 07:45 80 05/18/19 04:00 97.9 F 74 17 149/79 95 05/18/19 00:00 97.9 F 74 16 153/84 97 05/17/19 20:00 84 18 98 05/17/19 15:00 98.1 F 92 18 146/89 97 05/17/19 14:45 98.1 F 92 18 146/89 97 Intake and Output 05/17/19 05/18/19 05/18/19 22:59 06:59 14:59 Intake Total 436 670 Balance 436 670 Intake: Intake, IV Titration 200 550 Amount 0.9% NaCl with KCl 20 Meq 200 550 /l 1,000 ml @ 50 mls/hr IV .[id number] JUAN with Mvi, Adult No.4 with Vit K 10 ml with Thiamine 100 mg with Folic Acid 1 mg Rx#: [id number] Oral 236 120 Other: Voiding Method Urinal Urinal # Voids 2 4 # Bowel Movements 1 Weight 57.6 kg 57.5 kg GENERAL DESCRIPTION: Middle-aged male lying in bed, no distress. No tachypnea or accessory muscle of respiration use. HEENT: Shows Pallor , no scleral icterus. Oral mucous membrane is dry. No pharyngeal erythema or thrush NECK: Trachea central, no thyromegaly. LUNGS: Unlabored breathing. Decreased breaths in the bases. No wheeze or crackle. HEART: S1, S2, regular rate and rhythm. No loud murmur ABDOMEN: Soft, no tenderness , guarding or rigidity, no organomegaly EXTREMITIES: Bilateral lower extremity with superficial ulceration no slough tissue no surrounding redness Right hand dorsum did have a wound which is deep and was noticed to have slight purulent drainage at the time of dressing changes the wound base was cleaned and cultures were obtained SKIN: No rash, no masses palpable. NEUROLOGICAL: The patient is awake, alert, oriented x2, mood and affect normal. Results CBC & Chem 7: 05/18/19 06:04 05/18/19 06:04 Labs: Abnormal Lab Results - Last 24 Hours (Table) 05/17/19 05/17/19 05/17/19 Range/Units 16:34 16:34 17:32 RBC 3.89 L (4.30-5.90) m/uL Hgb 10.4 L (13.0-17.5) gm/dL Hct 33.5 L (39.0-53.0) % MCHC (31.0-37.0) g/dL RDW 16.7 H (11.5-15.5) % Chloride 109 H (98-107) mmol/L AST 64 H (17-59) U/L Alkaline Phosphatase 774 H (38-126) U/L Albumin 2.9 L (3.5-5.0) g/dL Urine Protein Trace H (Negative) Ur Leukocyte Esterase Small H (Negative) Urine WBC 11 H (0-5) /hpf Urine Mucus Rare H (None) /hpf 05/18/19 05/18/19 Range/Units 06:04 06:04 RBC 3.93 L (4.30-5.90) m/uL Hgb 10.2 L (13.0-17.5) gm/dL Hct 33.9 L (39.0-53.0) % MCHC 30.2 L (31.0-37.0) g/dL RDW 17.1 H (11.5-15.5) % Chloride 112 H (98-107) mmol/L AST (17-59) U/L Alkaline Phosphatase (38-126) U/L Albumin (3.5-5.0) g/dL Urine Protein (Negative) Ur Leukocyte Esterase (Negative) Urine WBC (0-5) /hpf Urine Mucus (None) /hpf Microbiology - Last 24 Hours (Table) 05/17/19 17:32 Urine Culture - Preliminary Urine,Clean Catch Assessment and Plan Assessment: 1-patient admitted to hospital with mental status changes which is likely multifactorial possible metabolic underlying infectious etiology not entirely excluded especially with concern for right hand wound infection with secondary cellulitis and UTI and is likely however the patient did have his factor of possible urinary retention leading to recurrent UTIs 2-bilateral lower extremity wound superficial with no evidence of any cellulitis (1) Non-pressure ulcer of left lower extremity with fat layer exposed Current Visit: Yes Status: Acute Code(s): L97.922 - NON-PRS CHR ULC UNSP PRT OF L LOW LEG W FAT LAYER EXPOSED SNOMED Code(s): 693106067 (2) Non-pressure ulcer of right lower extremity with fat layer exposed Current Visit: Yes Status: Acute Code(s): L97.912 - NON-PRS CHR ULC UNSP PRT OF R LOW LEG W FAT LAYER EXPOSED SNOMED Code(s): 375572578 Plan: 1-local wound care to bilateral lower extremity wound with Aquacel Silver dressing to be changed every 48 hour 2-[place] to the right hand dorsum wound followed by moist dressing to be changed daily 3-we will obtain x-rays of the right hand as well as CRP and a sed rate 4-hold on any empiric systemic antibiotic therapy as the patient currently doesn't look toxic and wait for the workup to finalize we will follow on clinical condition and culture to further adjust medication if needed Thank you for this consultation will follow this patient along with you
[2019-05-19] MEDS: PANTOPRAZOLE 40 MG TABLET PO SCH (06:31)
[2019-05-19] MEDS: MIDODRINE 5 MG TAB PO SCH ×3 (06:32→17:32)
[2019-05-19 06:52] LABS: Anisocytosis Slight; Basophils % (A) 0 %; Eosinophils # (A) 0.2 k/uL (0-0.7); Eosinophils % (A) 2 %; HCT 31.5 % (39.0-53.0); HGB 9.7 gm/dL (13.0-17.5); Hypochromasia Marked; Lymphocytes # (A) 1.4 k/uL (1.0-4.8); Lymphocytes % (A) 15 %; MCH 26.2 pg (25.0-35.0); MCHC 30.9 g/dL (31.0-37.0); MCV 84.9 fL (80.0-100.0); Mean Platelet Volume 7.2; Monocytes # (A) 0.5 k/uL (0-1.0); Monocytes % (A) 6 %; Neutrophils # (A) 6.9 k/uL (1.3-7.7); Neutrophils % (A) 75 %; Platelet Count 360 k/uL (150-450); RBC 3.71 m/uL (4.30-5.90); RDW 16.9 % (11.5-15.5); WBC 9.1 k/uL (3.8-10.6)
[2019-05-19 07:01] LABS: C Reactive Protein 70.8 mg/L (<10.0); Calcium 8.6 mg/dL (8.4-10.2); Potassium 3.5 mmol/L (3.5-5.1)
[2019-05-19] MEDS: SYMBICORT 160-4.5 MCG INHALER INHALATION SCH ×2 (08:11→19:44)
[2019-05-19] MEDS: IPRATROPIUM-ALBUTEROL 3 ML NEB INHALATION SCH ×4 (08:11→19:44)
--- NOTE | 2019-05-19 09:15 | XR ---
EXAMINATION TYPE: XR hand complete RT DATE OF EXAM: 05/19/2019 CLINICAL HISTORY: Right hand pain after fall in March 2019. Inspection of the fourth and fifth metacar pal. TECHNIQUE: Frontal, lateral and oblique images of the right hand are obtained. COMPARISON: None. FINDINGS: There is no obliquely oriented subacute fracture of the fifth metacarpal with 1.1 cm foresh ortening and approximately 2 mm volar ulnar displacement of the distal fracture fragment. There is ve ry minimal callus formation There is mild negative ulnar variance. Old well-corticated fracture of th e ulnar styloid is seen. Extensive vascular calcifications. Degenerative changes of the distal interp halangeal joints and first carpometacarpal joint. Diffuse osseous demineralization. Radial deviation of the wrist appears to be positional without dislocation. Skin laceration over the fifth proximal ph alanx and very minimal soft tissue swelling over the fifth metacarpal. IMPRESSION: Subacute fracture of the fifth metacarpal as detailed above.
[2019-05-19] MEDS: CLOPIDOGREL 75 MG TAB PO SCH (09:47)
[2019-05-19] MEDS: CYANOCOBALAMIN 500 MCG TAB PO SCH (09:47)
[2019-05-19] MEDS: PYRIDOSTIGMINE 60 MG TAB PO SCH ×3 (09:48→20:14)
[2019-05-19] MEDS: FLUDROCORTISONE 0.1 MG TAB PO SCH (09:48)
[2019-05-19] MEDS: EZETIMIBE 10 MG TAB PO SCH (09:48)
[2019-05-19] MEDS: ACETAMINOPHEN TAB 500 MG TAB PO PRN (09:49)
[2019-05-19 09:52] LABS: Erythrocyte Sedimentation Rate 91 mm/hr (0-15)
[2019-05-19] MEDS: HEPARIN SODIUM,PORCINE 5,000 UNIT/ML 1 ML VIAL SQ SCH ×2 (09:52→20:15)
[2019-05-19] MEDS ORDERED: POTASSIUM CHLORIDE ER 20 MEQ TAB.ER PO STA (10:40)
--- NOTE | 2019-05-19 11:40 | CDI ---
Documentation Clarification Form Date: 05/19/2019 11:15:30 AM From: Cristina Cast RN CCDS Admit Date: 05/17/2019 2:44:00 PM Patient Name: Juan Bunch Visit Number: [id number] Discharge Date: ATTENTION: The Clinical Documentation Specialists (CDI) and [facility] Coding Staff appreciate your assistance in clarifying documentation. Please respond to the clarification below the line at the bottom and electronically sign. The CDI & [facility] Coding staff will review the response and follow-up if needed. Please note: Queries are made part of the Legal Health Record. If you have any questions, please contact the author of this message via ITS. Dr. Pramod Doan A Stage II Pressure ulcer was documented in the wound care Assessment POA. History/Risk Factors: 78 year old male presents to the ED as a Transfer from [facility] for confusion. Medical History COPD, CAD, Pacemaker, frequent falls with left hip fracture and pelvis fracture. Patient was in rehab in [place] with having mental status changes. Clinical Indicators: Location: Coccyx Wound description: Length 2cm, Width 1cm , wound margins distinct, Tara wound color erythema, drainage purulent, drainage amount scant, wound type pressure injury, pressure injury no. Treatment: Foam with border ,photo taken Consults: Infectious disease Elements for accurate and compliant documentation of an ulcer: *The location/laterality of the ulcer *Etiology (decubitus/pressure, diabetic, PVD) *Stage I-IV, Unstageable, Suspected Deep Tissue Injury (To the deepest stage) *If the ulcer was present at admission (POA) or occurred after admission In your professional opinion, can you please clarify the diagnosis, location, laterality and whether present on admission (POA): * Stage 1 Pressure/Decubitus Ulcer (intact skin, non-blanching redness of local area) * Stage 2 Pressure/Decubitus Ulcer (Partial thickness, loss of dermis, pink wound bed) * Stage 3 Pressure/Decubitus Ulcer (Full thickness tissue loss) * Stage 4 Pressure/Decubitus Ulcer (Full thickness tissue loss with exposed bone, tendon, or muscle. May have slough or eschar present) * Unstageable * Other condition, please specify * Unable to determine Please indicate etiology of pressure ulcer (if known). (Last Revision: June 2017) stage III sacral pressure ulcer MTDD
--- NOTE | 2019-05-19 12:40 | P.HPOR ---
History of Present Illness H&P Date: 05/19/19 Chief Complaint: Right hand fracture 78-year-old patient who sustained a right fifth metacarpal fracture on 03/29/2019. He is a poor historian and the information is obtained through his who is at the bedside. He was immobilized for his fracture and that caused a pressure ulcer form along the dorsum of his hand. also states that he is able to extend the right ring finger but that has been going on for quite some time and she states even prior to the fracture and immobilization. He also reports a history of a pelvic fracture when he injured his hand several weeks ago. He has no complaints there. 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, macular degeneration, history of insertion and removal of a heart loop recorder, UTI's, sepsis History of Any Multi-Drug Resistant Organisms: None Reported Past Surgical History: Heart Catheterization With Stent, Hernia Repair, Joint Replacement, Orthopedic Surgery, Pacemaker Additional Past Surgical History / Comment(s): Resection of a melanoma and squamous cell carcinoma of the skin involving the lower lip, shoulder surgery 2007, insertion and removal of a loop recorder, pacemaker insertion 2014, cardiac catheterization and stenting, left hip ORIF in September 2018, shoulder surgery in July 2018, abdominal aortic aneurysm endovascular stent grafting in October 2018 Past Anesthesia/Blood Transfusion Reactions: No Reported Reaction Date of Last Stent Placement:: 1995 Type of Cardiac Device: Permanent Pacemaker Device Placement Date:: 2014 Past Psychological History: No Psychological Hx Reported Smoking Status: Former smoker - Past Family History Father Family Medical History: No Reported History, Dementia Mother Family Medical History: Diabetes Mellitus Medications and Allergies Home Medications Medication Instructions Recorded Confirmed Type Acetaminophen [Tylenol] 1,000 mg PO Q4-6H PRN 04/16/19 05/17/19 History Atorvastatin Calcium [Lipitor] 20 mg PO HS 04/16/19 05/17/19 History Budesonide/Formoterol Fumarate 2 puff INHALATION RT-BID 04/16/19 05/17/19 History [Symbicort 160-4.5 Mcg Inhaler] Clopidogrel Bisulfate [Plavix] 75 mg PO DAILY 04/16/19 05/17/19 History Cyanocobalamin (Vitamin B-12) 1,000 mcg PO DAILY 04/16/19 05/17/19 History [Vitamin B-12] Ezetimibe [Zetia] 10 mg PO DAILY 04/16/19 05/17/19 History Fludrocortisone [Florinef] 0.1 mg PO DAILY 04/16/19 05/17/19 History Midodrine HCl [ProAmatine] 20 mg PO TID 04/16/19 05/17/19 History Tamsulosin HCl [Flomax] 0.4 mg PO HS 04/16/19 05/17/19 History Albuterol Nebulized [Ventolin 2.5 mg INHALATION RT-TID 05/17/19 05/17/19 History Nebulized] Pyridostigmine [Mestinon] 60 mg PO TID 05/17/19 05/17/19 History Allergies Allergy/AdvReac Type Severity Reaction Status Date / Time acetaminophen [From Cyril] AdvReac Hallucinati Verified 05/17/19 15:51 ons adhesive tape AdvReac Unknown Verified 05/17/19 15:51 hydrocodone [From Cyril] AdvReac Hallucinati Verified 05/17/19 15:51 ons sulfamethoxazole AdvReac Hallucinati Verified 05/17/19 15:51 [From Bactrim] ons trimethoprim [From Bactrim] AdvReac Hallucinati Verified 05/17/19 15:51 ons Physical Examination Osteopathic Statement: *. No significant issues noted on an osteopathic structural exam other than those noted in the History and Physical/Consult. There is a wound over the fourth metacarpal head dorsally measuring about 1 cm in diameter. There is a flexion deformity of the ring finger and patient is unable to extend. There is no tenderness along the fifth metacarpal area. Results - Labs Labs: Abnormal Lab Results - Last 24 Hours (Table) 05/19/19 05/19/19 Range/Units 06:22 06:22 RBC 3.71 L (4.30-5.90) m/uL Hgb 9.7 L (13.0-17.5) gm/dL Hct 31.5 L (39.0-53.0) % MCHC 30.9 L (31.0-37.0) g/dL RDW 16.9 H (11.5-15.5) % ESR 91 H (0-15) mm/hr Chloride 113 H (98-107) mmol/L Glucose 101 H (74-99) mg/dL C-Reactive Protein 70.8 H (<10.0) mg/L Microbiology - Last 24 Hours (Table) 05/18/19 11:30 Gram Stain - Preliminary Hand - Right Wound Culture - Preliminary 05/18/19 23:10 Anaerobic Culture - Preliminary Hand - Right 05/17/19 16:34 Blood Culture - Preliminary Blood No Growth after 24 hours 05/17/19 17:32 Urine Culture - Final Urine,Clean Catch H & H 05/17/19 05/18/19 05/19/19 Range/Units 16:34 06:04 06:22 Hgb 10.4 L 10.2 L 9.7 L (13.0-17.5) gm/dL Hct 33.5 L 33.9 L 31.5 L (39.0-53.0) % Result Diagrams: 05/19/19 06:22 05/19/19 06:22 - Diagnostic results Wrist/Hand x-ray: image reviewed (Healing fifth metacarpal fracture) Assessment and Plan Assessment: 1. Subacute healing right hand fifth metacarpal fracture 2. Right hand dorsal wound Plan: 1. No indication for additional immobilization regarding the healing fracture 2. Infectious disease and wound care management recommendations for the right hand dorsal wound 3. Will reevaluate if needed
--- NOTE | 2019-05-19 13:35 | PN ---
PROGRESS NOTE DATE OF SERVICE: 05/19/2019 This 78-year-old gentleman who was admitted with change in mental status possible acute delirium, had acute metabolic encephalopathy. The patient has been closely monitored. No chest pain or palpitation. No fever. The patient has been closely monitored. Sensorium is slightly improved at this time but however the hand x-ray done today showed subacute fracture of the 5th metacarpal. The patient also had wound on the hand also. The right hand is swollen. No chest pain or palpitation. PAST MEDICAL HISTORY: Reviewed. REVIEW OF SYSTEMS: CARDIOVASCULAR SYSTEM: No angina. RESPIRATORY SYSTEM: As mentioned earlier. GI: As mentioned earlier. : No dysuria. NERVOUS SYSTEM: No numbness or weakness. CURRENT MEDICATIONS: Current medications are reviewed and include: 1. Tylenol 1000 mg q.6 p.r.n. 2. DuoNeb q.i.d. and p.r.n. 3. Lipitor 20 mg q.h.s. 4. Symbicort 2 puffs b.i.d. 5. Plavix 75 mg p.o. daily. 6. Vitamin B12, 1000 mcg p.o. daily. 7. Zetia 10 mg p.o. daily. 8. Florinef 0.1 daily. 9. Heparin b.i.d. 10.Imodium 2 mg q.i.d. p.r.n. 11.Ativan 0.5 mg q.8 p.r.n. 12.ProAmatine 20 mg a.c. t.i.d. 13.Narcan 0.2 q.2 p.r.n. 14.Protonix 40 mg daily. 15.Banana bag with vitamins and potassium. 16.Mestinon 60 mg p.o. t.i.d. 17.Risperdal. 18.Flomax. PHYSICAL EXAMINATION: Patient is alert and oriented x3. Pulse is 82, blood pressure 120/57, respiration 23, temperature 97.8, pulse ox 95% on room air. HEENT: Conjunctivae pale. NECK: No jugular venous distention. CARDIOVASCULAR: S1, S2 muffled. RESPIRATORY: Breath sounds diminished at the bases. A few scattered rhonchi. ABDOMEN: Soft, nontender. LEGS: No edema, no swelling. NERVOUS SYSTEM: Diffusely weak. SKIN: Multiple areas of infection. Right hand is swollen and erythematous and fracture also present. LABS: WBC 9.1, hemoglobin 9.7. Sodium 142, potassium 3.5. CRP 70.8. C. difficile negative. ASSESSMENT: 1. Change in mental status possible acute delirium, possible acute metabolic encephalopathy multifactorial. 2. Urinary tract infection with possible sepsis, present on admission. 3. Diffuse skin lesions with cellulitis. 4. Right hand swelling and ulcer with subacute fracture of the 5th metacarpal bone. 5. Severe protein-calorie malnutrition. 6. Severe gait dysfunction. 7. History of recent pelvic fracture and gait dysfunction. 8. Chronic obstructive pulmonary disease. 9. History of pneumonia. 10.History of coronary artery disease, stenting. 11.Elevated alkaline phosphatase. 12.History of permanent pacemaker. 13.History of abdominal aortic aneurysm and endovascular stent grafting. 14.History of orthostatic hypotension. 15.History of frequent falls. 16.History of left hip fracture. 17.Hyperlipidemia. 18.History of atrial fibrillation, paroxysmal. 19.History of melanoma resection. 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 21.History of macular degeneration. 22.History of multiple urinary tract infections and sepsis. 23.History of degenerative joint disease. 24.FULL CODE. RECOMMENDATIONS AND DISCUSSION: I recommend to continue current medications, continue with monitoring and symptomatic treatment. We will initiate broad-spectrum IV antibiotics. Cultures are pending at this time. The patient also has significant swelling and history of fracture. Also I recommend orthopedic hand surgery evaluation regarding the fracture. Otherwise, alkaline phosphatase elevated. We will continue to monitor. Otherwise, prognosis guarded because of multiple complex medical issues. Further recommendations to follow. See orders for details. Dietary consultation and evaluation also have been recommended with nutrition supplements. Discussed with the family at length and understands and agrees. MMODL / IJN: [id number] / CATARINA
--- NOTE | 2019-05-19 16:33 | PN ---
PROGRESS NOTE DATE OF SERVICE: 05/19/2019 REASON FOR FOLLOWUP: 1. Right hand wound with question of secondary cellulitis. 2. Bilateral lower extremity wounds. INTERVAL HISTORY: The patient is currently afebrile. The patient has been breathing comfortably. He is more awake and alert. No nausea, no vomiting, no abdominal pain or any diarrhea. He denies having any pain to the right arm, though his mentioned he has more swelling recently and redness. PHYSICAL EXAMINATION: Blood pressure 107/63 with a pulse of 97, temperature 97.8. He is 96% on room air. General description is an elderly male lying in bed in no distress. RESPIRATORY SYSTEM: Unlabored breathing. Clear to auscultation anteriorly. HEART: S1, S2. Regular rate and rhythm. ABDOMEN: Soft. No tenderness. Right hand is currently dressed up. No obvious drainage on the dressing. Leg wounds are currently dressed up as well. LABS/IMAGING: Hemoglobin 9.7, white count 9.1. BUN of 14, creatinine 0.98. Wound cultures are currently pending. X-ray did not show any evidence of . DIAGNOSTIC IMPRESSION AND PLAN: 1. Patient with a right hand wound with no evidence of any bony destructive changes on the x-ray. Wound cultures are currently pending. With a component of cellulitis, cefazolin will be added. Local wound care with Medihoney. 2. Bilateral lower extremities wounds with no cellulitis. Local wound care with Aquacel Silver dressing. Monitor clinical course closely. Continue with supportive care. MMODL / IJN: [id number] /
[2019-05-19] MEDS: 0.9% NACL WITH KCL 20 MEQ/L 1,000 ML with MVI, ADULT NO.4 WITH VIT K 10 ML, THIAMINE 10... IV SCH ×4 (17:58)
[2019-05-19] MEDS ORDERED: guaiFENesin 600 MG TABLET.ER PO PRN (19:12)
[2019-05-19] MEDS: ATORVASTATIN 20 MG TAB PO SCH (20:14)
[2019-05-19] MEDS: TAMSULOSIN 0.4 MG CAP.ER.24H PO SCH (20:14)
[2019-05-19] MEDS: risperiDONE 0.25 MG TAB PO SCH (20:14)
[2019-05-20] MEDS: MIDODRINE 5 MG TAB PO SCH ×3 (06:21→18:32)
[2019-05-20] MEDS: PANTOPRAZOLE 40 MG TABLET PO SCH (06:31)
[2019-05-20 06:40] LABS: Anisocytosis Slight; Basophils % (A) 0 %; Eosinophils # (A) 0.1 k/uL (0-0.7); Eosinophils % (A) 1 %; HCT 31.2 % (39.0-53.0); HGB 9.4 gm/dL (13.0-17.5); Hypochromasia Marked; Lymphocytes # (A) 1.1 k/uL (1.0-4.8); Lymphocytes % (A) 11 %; MCH 25.7 pg (25.0-35.0); MCV 85.8 fL (80.0-100.0); Mean Platelet Volume 7.1; Monocytes # (A) 0.5 k/uL (0-1.0); Monocytes % (A) 5 %; Neutrophils # (A) 7.8 k/uL (1.3-7.7); Neutrophils % (A) 80 %; Platelet Count 337 k/uL (150-450); RBC 3.64 m/uL (4.30-5.90); RDW 16.9 % (11.5-15.5); WBC 9.7 k/uL (3.8-10.6)
[2019-05-20 06:50] LABS: African American GFR (CKD) >90 (>60 ml/min/1.73 sqM); Anion Gap 6 mmol/L; Blood Urea Nitrogen 14 mg/dL (9-20); Calcium 8.2 mg/dL (8.4-10.2); Carbon Dioxide 24 mmol/L (22-30); Chloride 114 mmol/L (98-107); Glucose 84 mg/dL (74-99); Potassium 3.5 mmol/L (3.5-5.1); Sodium 144 mmol/L (137-145)
[2019-05-20] MEDS: IPRATROPIUM-ALBUTEROL 3 ML NEB INHALATION SCH ×4 (08:31→19:25)
[2019-05-20] MEDS: SYMBICORT 160-4.5 MCG INHALER INHALATION SCH ×2 (08:31→19:24)
[2019-05-20] MEDS: CLOPIDOGREL 75 MG TAB PO SCH (09:43)
[2019-05-20] MEDS: FLUDROCORTISONE 0.1 MG TAB PO SCH (09:43)
[2019-05-20] MEDS: CYANOCOBALAMIN 500 MCG TAB PO SCH (09:43)
[2019-05-20] MEDS: EZETIMIBE 10 MG TAB PO SCH (09:44)
[2019-05-20] MEDS: HEPARIN SODIUM,PORCINE 5,000 UNIT/ML 1 ML VIAL SQ SCH ×2 (09:44→20:21)
[2019-05-20] MEDS: PYRIDOSTIGMINE 60 MG TAB PO SCH ×3 (09:44→20:20)
[2019-05-20] MEDS: 0.9% NACL WITH KCL 20 MEQ/L 1,000 ML with MVI, ADULT NO.4 WITH VIT K 10 ML, THIAMINE 10... IV SCH ×4 (18:35)
[2019-05-20] MEDS ORDERED: VANCOMYCIN IV PER PHARMACY 1 EACH MISC MISCELLANE PRN (19:55)
[2019-05-20] MEDS: ATORVASTATIN 20 MG TAB PO SCH (20:21)
[2019-05-20] MEDS: TAMSULOSIN 0.4 MG CAP.ER.24H PO SCH (20:21)
[2019-05-20] MEDS: risperiDONE 0.25 MG TAB PO SCH (20:21)
[2019-05-20] MEDS ORDERED: VANCOMYCIN 1,000 MG in SODIUM CHLORIDE 0.9% 250 ML IVPB ONE (20:45)
--- NOTE | 2019-05-20 22:04 | PN ---
PROGRESS NOTE DATE OF SERVICE: 05/20/2019 This 78-year-old gentleman who was admitted with change in mental status, possible acute delirium with possible acute metabolic encephalopathy is being closely monitored. The patient also had UTI with possible sepsis also. The patient's sensorium is significantly improved at this time. Orthopedic surgery, Dr. Johnson, and the patient with right hand fracture which was thought to be subacute healing. There is some surrounding cellulitis also. Infectious Disease is following the patient closely. No chest pain. No palpitations. No fever. PHYSICAL EXAM: Alert and oriented x3. Pulse is 83. Blood pressure 99/60, respiration 16, temp is normal. Pulse ox 98% on 2 L. HEENT: Conjunctivae normal. NECK: No JVD. CARDIOVASCULAR: S1, S2 muffled. RESPIRATIONS: Breath sounds diminished in the bases. No rhonchi. No crackles. ABDOMEN is soft, nontender. No mass palpable. LEGS no edema. No swelling. NERVOUS SYSTEM: Diffusely weak. Emaciated. SKIN: Diffuse significant skin rash present. LAB STUDIES: WBC 9.7, hemoglobin 9.4. ASSESSMENT: 1. Change in mental status acute metabolic encephalopathy, acute delirium, multifactorial present on admission. 2. Urinary tract infection with possible sepsis, present on admission. 3. Diffuse skin lesions with cellulitis. 4. Right hand swelling and also subacute fracture of 5th metacarpal on conservative line of management per Orthopedic surgery. 5. Severe protein calorie malnutrition. 6. Severe gait dysfunction. 7. History of recent pelvis fracture and gait dysfunction. 8. Chronic obstructive pulmonary disease. 9. History of pneumonia. 10.History of coronary artery disease/stenting. 11.History of elevated alkaline phosphatase. 12.History of permanent pacemaker. 13.History of abdominal aortic aneurysm with endovascular stent grafting. 14.History of orthostatic hypotension. 15.History of frequent falls. 16.History of left hip fracture. 17.Hyperlipidemia. 18.History of atrial fibrillation, paroxysmal. 19.History of melanoma resection. 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 21.History of macular degeneration. 22.History of multiple urinary tract infections and sepsis in the past. 23.History of degenerative joint disease. 24.FULL CODE. RECOMMENDATIONS AND DISCUSSION: Recommend to continue current medications, continue to monitor, management and symptomatic treatment. As mentioned earlier, continue the antibiotics. Continue the rest of medications. Conservative line of the fracture per Orthopedic surgery. Follow closely. Infectious Disease also recommend the patient at length about the importance of increasing nutrition status, supplement, protein supplements. See orders for details. Otherwise, guarded prognosis. Continue the current medications. Continue the vitamin supplements. Prognosis guarded. MMODL / IJN: [id number] / MTDD
--- NOTE | 2019-05-20 23:37 | PN ---
PROGRESS NOTE DATE OF SERVICE: 05/20/2019. REASON FOR FOLLOWUP: 1. Right handed MRSA infection. 2. Bilateral lower extremity wound. INTERVAL HISTORY: The patient is currently afebrile. Patient has been breathing comfortably. The patient did have slight discomfort to the right hand wound area with some surrounding redness, more of a dull aching pain. Unable to elaborate any further. No nausea, no vomiting. No abdominal pain. No diarrhea. REVIEW OF SYSTEMS: Positive points in HPI. Other review of systems negative. PAST MEDICAL HISTORY: Past medical and surgical history reviewed. No change. MEDICATIONS: Medication reviewed. PHYSICAL EXAMINATION: Blood pressure 149/79 with a pulse of 83, temperature 98.1. He is 92% 2 L nasal cannula. General description is an elderly male lying in bed in no distress. HEENT exam is slight pallor. No scleral icterus. Oral mucosal membranes are dry. LUNGS unlabored breathing. Clear to auscultation anteriorly. No wheeze or crackles. HEART S1, S2. Regular rate and rhythm. ABDOMEN: Soft, no tenderness. EXTREMITIES: Bilateral lower extremity wounds are currently dressed up, no obvious drainage on the dressing. The right hand dorsum wound did have purulent drainage, surrounding redness. No foul smelling drainage. NEUROLOGICAL: Patient is awake, alert, oriented x3. Mood and affect normal. LABS: Hemoglobin is 9.4, white count 9.7, BUN of 14, creatinine 0.90. Local wound cultures have been finalized with MRSA. Blood and urine cultures have been negative so far. DIAGNOSTIC IMPRESSION AND PLAN: 1. Patient with right abscess wound with secondary cellulitis. Culture has been positive for MRSA. We will discontinue Cefazolin, and start the patient on vancomycin, pharmacy to dose. Target of 15 while watching his kidney function and Ortho to reevaluate the patient for possible debridement of this area to determine extent of the disease. 2. Bilateral lower extremity wound. Continue wound care with Aquacel Silver dressing. Continue supportive care. MMODL / IJN: [id number] /
--- NOTE | 2019-05-21 01:56 | XR ---
EXAM: XR Chest, 1 View CLINICAL HISTORY: ITS.REASON XR Reason: Resp distress TECHNIQUE: Frontal view of the chest. COMPARISON: 05/17/2019 FINDINGS: Lungs: Mild equalization and interstitial prominence is suggested, new from the previous exam. Pleural space: Unremarkable. No pneumothorax. Heart: Left subclavian pacer leads are identified. The cardiac silhouette is within normal limits. Mediastinum: The mediastinal contours are otherwise unremarkable. The trachea is midline. Bones/joints: There is a suggestion of chronic right rib fractures, similar in appearance to the previous exam. No acute osseous abnormality. IMPRESSION: Mild equalization and interstitial prominence is suggested, new from the previous exam. Findings suggest pulmonary vascular congestion. Please correlate clinically. No focal consolidation. No large pleural effusion or pneumothorax.
[2019-05-21] MEDS: 0.9% NACL WITH KCL 20 MEQ/L 1,000 ML with MVI, ADULT NO.4 WITH VIT K 10 ML, THIAMINE 10... IV SCH ×4 (02:42)
[2019-05-21] MEDS ORDERED: FUROSEMIDE 10 MG/ML 4 ML VIAL IV STA (03:18)
--- NOTE | 2019-05-21 06:01 | CT ---
EXAM: CT Angiography Chest With Intravenous Contrast CLINICAL HISTORY: Elevated d-dimer. Evaluate for pulmonary embolism. TECHNIQUE: Axial computed tomographic angiography images of the chest with intravenous contrast using pulmonary embolism protocol. CTDI is 15.5 mGy and DLP is 353.1 mGy-cm. This CT exam was performed using one or more of the following dose reduction techniques: automated exposure control, adjustment of the mA and/or kV according to patient size, and/or use of iterative reconstruction technique. MIP reconstructed images were created and reviewed. COMPARISON: No relevant prior studies available. FINDINGS: Limitations: There is extensive respiratory artifact throughout the examination which causes significant image degradation and limits detailed evaluation of the subsegmental pulmonary artery branches. Pulmonary arteries: Accounting for limitations, there is no evidence for large/central pulmonary emboli. Aorta: No acute findings. No thoracic aortic aneurysm. Lungs: There are findings suggesting hyperexpansion with centrilobular emphysematous changes. Subsegmental changes in the posterior lung bases are noted. There is questionable interlobular septal thickening suggested peripherally. No mass. Pleural space: Unremarkable. No significant effusion. No pneumothorax. Heart: Left subclavian pacer leads are identified extending into the right atrium and ventricle. The cardiac chambers are normal in size. No pericardial effusion. Bones/joints: There is a slightly anterior wedge-shaped compression fracture at T7 level with subtle questionable lucency of the superior endplate. Internal sclerosis of the vertebral body is noted. Subtle sclerosis is also noted at the inferior endplate at T4 level suggesting a subacute to chronic compression fracture in this region. There is loss of height anteriorly at the T4 level. No dislocation. Soft tissues: Unremarkable. Lymph nodes: Unremarkable. No enlarged lymph nodes. IMPRESSION: 1. Accounting for limitations from significant respiratory artifact, there is no definite evidence for large/central pulmonary emboli. 2. There are findings suggesting hyperexpansion with centrilobular emphysematous changes. Subsegmental opacities in the posterior lung bases are presumed subsegmental atelectasis. Subtle infection is considered less likely but is difficult to entirely exclude. Please correlate clinically. 3. There is questionable interlobular septal thickening suggested peripherally. A component of pulmonary vascular congestion is suspected. Trace left pleural effusion layering posteriorly measuring only 5-6 mm. 4. There is a slightly anterior wedge-shaped compression fracture at T7 level with subtle questionable lucency of the superior endplate. Internal sclerosis of the vertebral body is noted. Findings are somewhat indeterminate. However, a subtle acute on chronic compression fracture may be present at this level. There is estimated 60-70% loss of height. There is mild bowing of the posterior cortex without evidence of significant retropulsion. No involvement of the pedicles or posterior elements are noted. Nonemergent MRI evaluation with STIR imaging may be performed for evaluation of bone marrow edema and further accurate dating.
[2019-05-21] MEDS: MIDODRINE 5 MG TAB PO SCH ×3 (06:04→21:55)
[2019-05-21] MEDS: PANTOPRAZOLE 40 MG TABLET PO SCH (06:05)
[2019-05-21] MEDS: IPRATROPIUM-ALBUTEROL 3 ML NEB INHALATION SCH ×4 (08:10→19:52)
[2019-05-21] MEDS: SYMBICORT 160-4.5 MCG INHALER INHALATION SCH ×2 (08:11→19:53)
[2019-05-21] MEDS: CYANOCOBALAMIN 500 MCG TAB PO SCH (09:20)
[2019-05-21] MEDS: CLOPIDOGREL 75 MG TAB PO SCH (09:20)
[2019-05-21] MEDS: VANCOMYCIN 1,000 MG in SODIUM CHLORIDE 0.9% 250 ML IVPB SCH ×2 (09:21→21:57)
[2019-05-21] MEDS: FLUDROCORTISONE 0.1 MG TAB PO SCH (09:22)
[2019-05-21] MEDS: HEPARIN SODIUM,PORCINE 5,000 UNIT/ML 1 ML VIAL SQ SCH ×2 (09:22→21:57)
[2019-05-21] MEDS: EZETIMIBE 10 MG TAB PO SCH (09:22)
[2019-05-21] MEDS: PYRIDOSTIGMINE 60 MG TAB PO SCH ×3 (09:22→22:03)
--- NOTE | 2019-05-21 10:22 | P.PN ---
Progress Note - Text Progress Note Date: 05/21/19 I was asked to reevaluate the patient in regards to his right dorsal hand wound. His is at the bedside. His history is he fractured his right fifth metacarpal proximally 2 months ago at which time he was placed into a hard plastic splint. Apparently the splint causing erosion of the skin along the dorsum of the right hand in the area of the fourth metacarpal head dorsally. The states that just after he was placed in splint 2 months ago he was unable to extend knee ring finger. Wound cultures show a positive MRSA. Infectious disease has asked that I debrided the wound out. There is a 1 cm dorsal wound along the dorsal aspect of the right hand just proximal to the fourth metacarpal head. The patient is unable to extend his fourth digit. There is no significant erythema present. There is some purulent drainage noted. Impression: Right hand 1 cm dorsal wound with positive MRSA cultures Subacute right ring finger extensor tendon rupture History of right fifth metacarpal fracture History of bilateral lower extremity wounds Plan: I will take the patient to the operating room tomorrow for irrigation debridement of the wound I don't believe in this setting of chronic extensor tendon rupture and active infection we will not be able to repair the extensor tendon I reviewed the procedure, risks, complications and recovery with the is a patient is currently unable to participate in a conversation she understands the recommendation and does wish to proceed. 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 Once infection is eradicated he could the central orthopedic hand surgeon for evaluation and discussion of treatment options for his chronic extensor tendon rupture. The understands and does wish to proceed with the recommended irrigation and debridement. Consent will be obtained.
[2019-05-21] MEDS ORDERED: HALOPERIDOL LACTATE 5 MG/ML 1 ML VIAL IVP PRN (12:45)
--- NOTE | 2019-05-21 18:43 | PN ---
PROGRESS NOTE DATE OF SERVICE: 05/21/2019. This 78-year-old gentleman who was admitted with change in mental status, had acute delirium and possible UTI with sepsis also. Sensorium was improving yesterday but today the patient has taken a turn for the worse. Patient is short of breath. The patient is confused. Multiple evaluations done including chest x-ray which showed mild interstitial prominence. Otherwise, CT angiogram of the chest was also done which showed a compression fracture of T7. No definite evidence of pulmonary emboli was noted. The patient is closely monitored at this time. Orthopedics has seen the patient and recommended irrigation and debridement of the wound on the right hand. The patient also has subacute right ring finger extensor tendon rupture and right 5th metacarpal fracture also. The patient also had extensive bilateral wounds also. Patient had MRSA possibly from the cultures and vancomycin has been initiated. Infectious Disease following the patient closely. PAST MEDICAL HISTORY: Reviewed. REVIEW OF SYSTEMS: Could not be taken because the patient is confused. MEDICATIONS: Current medications are: 1. Tylenol p.r.n. 2. DuoNeb q.i.d. and p.r.n. 3. Lipitor 20 mg. 4. Symbicort 160/4.5 two puffs b.i.d. 5. Plavix. 6. Vitamin B12. 7. Zetia. 8. Florinef. 9. Mucinex. 10.Haldol p.r.n. 11.Heparin subcu b.i.d. 12.Imodium. 13.Ativan. 14.ProAmatine. 15.Narcan. 16.Protonix. 17.Risperdal. 18.Flomax. 19.Vancomycin. PHYSICAL EXAM: Patient is conscious, confused. Restless. Pulse 96. Blood pressure is 130/92, respirations 16, temperature 98.6, pulse ox 96% on 4 L. HEENT: Conjunctivae normal. Oral mucosa moist. NECK is no jugular venous distention. No carotid bruit. No lymph node enlargement. Cardiovascular system: S1, S2 muffled. Respirations: Breath sounds diminished in the bases. A few scattered rhonchi and crackles. Expiratory wheezing also present. ABDOMEN: Soft, nontender. No mass palpable. LEGS: No edema. No swelling. Nervous system: Higher functions as mentioned earlier. Moves all 4 limbs. No focal motor or sensory deficits. LYMPHATICS: No lymph nodes palpable in the neck, axilla or groin. SKIN: No ulcer, rash or bleeding. JOINTS: No active deforming arthropathy. LABS: At this time, shows WBC 9.7, hemoglobin 9.4. D-dimer is 7.89. Sodium 140, potassium 3.5. C-reactive protein is 70.8. ASSESSMENT: 1. Change in mental status, acute metabolic encephalopathy, multifactorial, present on admission. 2. Acute urinary tract infection with possible sepsis, present on admission. 3. Right forearm wound with MRSA. 4. Subacute right ring finger, extensor tendon rupture. 5. History of right 5th metacarpal fracture. 6. History of bilateral extremity wounds with cellulitis. 7. Urinary tract infection with sepsis, present on admission. 8. Severe protein calorie malnutrition. 9. Severe gait dysfunction. 10.History of recent pelvic fracture with gait dysfunction. 11.Chronic obstructive pulmonary disease. 12.History of pneumonia. 13.History of coronary artery disease/ stenting. 14.History of elevated alkaline phosphatase. 15.History of permanent pacemaker. 16.History of abdominal aortic aneurysm with endovascular stent graft. 17.History of orthostatic hypotension. 18.History of frequent falls. 19.History of left hip fracture. 20.Hyperlipidemia. 21.History of atrial fibrillation paroxysmal. 22.History of melanoma resection. 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 24.History of macular degeneration. 25.History of multiple urinary tract infection and sepsis in the past. 26.History of degenerative joint disease. 27.FULL CODE. RECOMMENDATIONS AND DISCUSSION: Recommend to continue current medications, management and symptomatic treatment. Cultures are mentioned as the vancomycin initiated. Follow closely with Infectious Disease. Otherwise, possibly debridement. Further recommendations to follow. D-dimer was elevated, but however, there is no evidence of any pulmonary embolism in the CTA. We will continue to monitor. Prognosis guarded. Further recommendations to follow. MMODL / IJN: [id number] /
[2019-05-21] MEDS: risperiDONE 0.25 MG TAB PO SCH (21:56)
[2019-05-21] MEDS: TAMSULOSIN 0.4 MG CAP.ER.24H PO SCH (21:56)
[2019-05-21] MEDS: ATORVASTATIN 20 MG TAB PO SCH (21:57)
--- NOTE | 2019-05-21 23:19 | PN ---
PROGRESS NOTE DATE OF SERVICE: 05/21/2019. REASON FOR FOLLOWUP: 1. Right hand MRSA abscess and cellulitis. 2. Bilateral leg wound. INTERVAL HISTORY: The patient is currently afebrile. He seems to be slightly lethargic today though hemodynamically stable not requiring any pressor support. No vomiting or diarrhea reported per the nursing staff. PHYSICAL EXAMINATION: Blood pressure 140/83 with a pulse of 80, temperature 97.8. He is 98% on 4 L nasal cannula. General description is an elderly male lying in bed in no distress. Respiratory system: Unlabored breathing, clear to auscultation anteriorly. Heart S1, S2. Regular rate and rhythm. Abdomen soft, no tenderness. Right hand dorsum of the wound with slough tissue, surrounding redness, 90 degrees. LABS: Hemoglobin 9.4, white count 9.7, BUN of 14, creatinine 0.90. Wound culture with MRSA. Blood cultures have been negative. DIAGNOSTIC IMPRESSION AND PLAN: 1. Patient with right hand chronic wound with secondary MRSA infection. The patient is covered with vancomycin. The patient is scheduled for OR debridement of this wound tomorrow at which time depth of the wound will be determined. The patient will likely need IV antibiotic on discharge. Local wound care with Medihoney. 2. Bilateral leg wound, no cellulitis. Local wound care with Aquacel silver dressing. Son was present at bedside. His questions and concerns were answered. MMODL / IJN: [id number] /
[2019-05-22] MEDS: 0.9% NACL WITH KCL 20 MEQ/L 1,000 ML with MVI, ADULT NO.4 WITH VIT K 10 ML, THIAMINE 10... IV SCH ×8 (03:53→22:17)
[2019-05-22 05:33] LABS: African American GFR (CKD) >90 (>60 ml/min/1.73 sqM)
[2019-05-22] MEDS: MIDODRINE 5 MG TAB PO SCH ×4 (07:10→21:16)
[2019-05-22] MEDS: PANTOPRAZOLE 40 MG TABLET PO SCH (07:10)
[2019-05-22] MEDS: SYMBICORT 160-4.5 MCG INHALER INHALATION SCH ×2 (07:25→19:34)
[2019-05-22] MEDS: IPRATROPIUM-ALBUTEROL 3 ML NEB INHALATION SCH ×4 (07:25→19:34)
[2019-05-22] MEDS: VANCOMYCIN 1,000 MG in SODIUM CHLORIDE 0.9% 250 ML IVPB SCH ×2 (09:21→21:17)
[2019-05-22] MEDS: HEPARIN SODIUM,PORCINE 5,000 UNIT/ML 1 ML VIAL SQ SCH ×2 (09:21→21:17)
[2019-05-22] MEDS: CYANOCOBALAMIN 500 MCG TAB PO SCH (09:21)
[2019-05-22] MEDS: EZETIMIBE 10 MG TAB PO SCH (09:22)
[2019-05-22] MEDS: PYRIDOSTIGMINE 60 MG TAB PO SCH ×3 (09:22→21:17)
[2019-05-22] MEDS: FLUDROCORTISONE 0.1 MG TAB PO SCH (09:22)
[2019-05-22] MEDS ORDERED: IV FLUID CONTINUATION 1,000 ML IV ONE (13:51)
[2019-05-22] MEDS ORDERED: LACTATED RINGERS 1,000 ML IV ONE (14:35)
[2019-05-22] MEDS ORDERED: ONDANSETRON 4 MG/2 ML VIAL IVP ONE (14:36)
[2019-05-22] MEDS ORDERED: MIDAZOLAM (PF) 2 MG/2 ML VIAL IV ONE (14:56)
--- NOTE | 2019-05-22 15:23 | P.ANPRN ---
Procedure Note - Anesthesia - Nerve Block Performed Right Supraclavicular Single Time Out Performed: Yes Date of Procedure: 05/22/19 Procedure Start Time: 14:55 Procedure Stop Time: 15:02 Location of Patient Procedure: PreOp Indication: Acute Post-Operative Pain, Requested by Surgeon Sedation Type: Sedate with meaningful contact maintained Preparation: Sterile Prep, Sterile Dressing Position: Supine Catheter: None Needle Types: Pajunk Needle Gauge: 20 Ultrasound used to visualize needle placement: Yes Ultrasound used to observe medication spread: Yes Injectate: 0.5% Ropivacaine (see comment for volume) (20 ml) Blood Aspirated: No Pain Paresthesia on Injection Noted: No Resistance on Injection: Normal Image Stored and Saved: Yes Events: Uneventful and Well Tolerated
[2019-05-22] MEDS ORDERED: PROPOFOL 10 MG/ML 20 ML VIAL IV ONE (15:50)
--- NOTE | 2019-05-22 16:34 | P.OP ---
Date of Procedure: 05/22/19 Preoperative Diagnosis: Right dorsal hand wound Postoperative Diagnosis: Right dorsal hand wound with chronic ruptured extensor tendon involving the right ring finger Procedure(s) Performed: Irrigation and debridement 1 cm right dorsal hand wound with secondary closure Anesthesia: regional (Interscalene block) Surgeon: Stefano Johnson Estimated Blood Loss (ml): 5 Pathology: none sent Condition: stable Disposition: PACU Indications for Procedure: 78-year-old patient seen with a right dorsal hand wound. We discussed irrigation debridement of the wound. I did review the chronic rupture of the extensor that will not be repaired during the setting in lieu of the active in fection. I reviewed the procedure, risks, complications and recovery. Family / were agreeable and consent was obtained. Operative Findings: see description of procedure Description of Procedure: The patient underwent a regional block by the department of anesthesia. The patient was taken to the operative suite. The right upper extremity was prepped and draped in the normal sterile orthopedic fashion. Utilizing a #15 blade I surgically excise the necrotic-appearing tissue within the 1 cm dorsal wound of the right hand. There was good bleeding around the peripheral tissue. I explored the wound for the extensor tendon and I could not find it. I irrigated the wound out copiously with pulse lavage mechanical irrigation. I explored the wound again and did not see any additional necrotic tissue. I repaired the skin margins with 3-0 nylon suture loosely. Sterile dressings were applied. A sterile web roll and Mir bandage were applied. The patient was then awakened and transferred to recovery stable condition. Prognosis remains guarded.
[2019-05-22] MEDS: CLOPIDOGREL 75 MG TAB PO SCH (17:45)
--- NOTE | 2019-05-22 18:26 | PN ---
PROGRESS NOTE DATE OF SERVICE: 05/22/2019 REASON FOR FOLLOWUP: 1. Right hand MRSA wound infection. 2. Bilateral lower extremity wounds. INTERVAL HISTORY: The patient is currently afebrile. The patient is more awake and alert. He is breathing comfortably. Denies having any chest pain or cough or any worsening pain to the right arm area. PHYSICAL EXAMINATION: His vital signs stable with no fever. General description is an elderly male up in the bed in no distress. RESPIRATORY SYSTEM: Unlabored breathing. Clear to auscultation anteriorly. HEART: S1, S2. Regular rate and rhythm. ABDOMEN: Soft. No tenderness. Right hand wound are currently dressed up. No obvious drainage on the dressing. LABS: Creatinine 0.88. DIAGNOSTIC IMPRESSION AND PLAN: 1. Patient with right hand wound with secondary cellulitis. Culture has been positive for MRSA. Awaiting for surgical debridement to determine the depth of infection. Patient to continue on IV vancomycin at this point. Monitor his clinical course closely. 2. Bilateral lower extremity wounds. Local wound care with Aquacel Silver dressing to be changed q.48 hours. MMODL / IJN: [id number] /
[2019-05-22] MEDS ORDERED: VANCOMYCIN TROUGH DUE 1 EACH MISC MISCELLANE ONE (19:00)
[2019-05-22] MEDS: TAMSULOSIN 0.4 MG CAP.ER.24H PO SCH (21:16)
[2019-05-22] MEDS: risperiDONE 0.25 MG TAB PO SCH (21:16)
[2019-05-22] MEDS: ATORVASTATIN 20 MG TAB PO SCH (21:17)
--- NOTE | 2019-05-22 21:52 | P.PN ---
Subjective Progress Note Date: 05/22/19 Principal diagnosis: Patient is a 78 year old male that was recently admitted for change in mental status, had acute delirium, and possible UTI with sepsis and is being closely monitored. Patient is being followed by multiple medical consultants and is scheduled to have a debridement of the right hand this afternoon. is at the bedside requesting a possible urology consult with Dr. Rosa for a urolift that was supposed to be done prior to his fall in March of this year. Patient is sitting up in the chair after working with physical therapy from the bed to the chair and is short of breath. Patient is requiring 4L of 02 via NC. Patient denies any chest pain or palpitations at this time. continued to speak on patient's behalf with occasional nods from the patient. Guarded prognosis. Objective - Vital Signs Vital signs: Vital Signs Temp 97.3 F L 05/22/19 16:34 Pulse 76 05/22/19 16:48 Resp 18 05/22/19 16:48 BP 167/87 05/22/19 16:48 Pulse Ox 99 05/22/19 16:48 Intake & Output 05/21/19 05/22/19 05/22/19 18:59 06:59 18:59 Intake Total 250 125 650 Output Total 205 Balance 250 125 445 Weight 57.5 kg Intake: IV 400 Intake, IV Titration 250 125 250 Amount Vancomycin 1,000 mg In 250 125 250 Sodium Chloride 0.9% 250 ml @ 125 mls/hr IVPB Q12H [facility] Rx#:[id number] Output: Urine 200 Estimated Blood Loss 5 Other: Voiding Method Urinal Urinal Urinal # Voids 2 1 - Exam Gen: This is a 78 year old male sitting up in the chair in no acute distress. BP is 149/79, pulse is 76, resp are 18, and 02 is 93% on 4 L via NC HEENT: Head is atraumatic, normocephalic. Pupils equal, round. Sclerae is anicteric. NECK: Supple. No JVD. No lymphadenopathy. No thyromegaly. LUNGS: Breath sounds diminished at the bases with a few scattered rhonchi noted. Expiratory wheezes noted. No intercostal retractions. HEART: S1, S2 muffled ABDOMEN: Soft. Bowel sounds are present. No masses. No tenderness. EXTREMITIES: No pedal edema. No calf tenderness. Multiple skin tears noted bilaterally to upper and lower extremities with dressings applied. NEUROLOGICAL: Patient is awake, alert and oriented x3. Cranial nerves 2 through 12 are grossly intact. SKIN: as noted previously - Labs CBC & Chem 7: 05/20/19 06:11 05/22/19 05:13 Labs: Microbiology - Last 24 Hours (Table) 05/18/19 11:30 Gram Stain - Final Hand - Right Wound Culture - Final Methicillin resist S. aureus 05/17/19 16:34 Blood Culture - Preliminary Blood No Growth after 96 hours Assessment and Plan Assessment: Change in mental status, acute metabolic encephalopathy, multifactorial, present on admission Acute urinary tract infection with possible sepsis, present on admission Right forearm wound with MRSA Subacute right ring finger, extensor tendon rupture History of right fifth metacarpal fracture History of bilateral extremity wounds with cellulitis Severe gait dysfunction Severe protein calorie malnutrition History of coronary artery disease/stenting History of recent pelvic fracture with gait dysfunction Chronic obstructive pulmonary disease history of pneumonia History of elevated alkaline phosphatase History of permanent pacemaker History of abdominal aortic aneurysm with endovascular stent graft History of frequent falls History of orthostatic hypotension History of left hip fracture Hyperlipidemia History of atrial fibrillation, paroxysmal History of melanoma resection History is, cell carcinoma of the left lower lip History of macular degeneration History of multiple urinary tract infections and sepsis in the past History of degenerative joint disease Full code Recreations and discussion: Recommend continue current medications, management, and symptomatically treatment. is at the bedside today requesting a possible consultation with Dr. Rosa as he was following with him in the outpatient setting. Infectious disease is following. Pt to continue on IV antibiotics at this time. Patient is to undergo a debridement of the right forearm wound this afternoon. Will continue to monitor. Prognosis is guarded. Further recommendations to follow.
[2019-05-23 05:57] LABS: Anisocytosis Slight; Basophils % (A) 0 %; Eosinophils % (A) 1 %; HCT 30.9 % (39.0-53.0); HGB 9.5 gm/dL (13.0-17.5); Hypochromasia Marked; Lymphocytes # (A) 0.7 k/uL (1.0-4.8); Lymphocytes % (A) 14 %; MCH 25.9 pg (25.0-35.0); MCHC 30.8 g/dL (31.0-37.0); Mean Platelet Volume 7.3; Monocytes # (A) 0.2 k/uL (0-1.0); Monocytes % (A) 5 %; Neutrophils # (A) 4.1 k/uL (1.3-7.7); Neutrophils % (A) 79 %; Platelet Count 326 k/uL (150-450); RBC 3.68 m/uL (4.30-5.90); RDW 16.8 % (11.5-15.5); WBC 5.1 k/uL (3.8-10.6)
[2019-05-23 06:08] LABS: African American GFR (CKD) >90 (>60 ml/min/1.73 sqM); Anion Gap 5 mmol/L; Blood Urea Nitrogen 19 mg/dL (9-20); Calcium 8.2 mg/dL (8.4-10.2); Carbon Dioxide 28 mmol/L (22-30); Chloride 105 mmol/L (98-107); Glucose 143 mg/dL (74-99); Potassium 3.6 mmol/L (3.5-5.1); Sodium 138 mmol/L (137-145)
[2019-05-23] MEDS: PANTOPRAZOLE 40 MG TABLET PO SCH (06:13)
[2019-05-23] MEDS: SYMBICORT 160-4.5 MCG INHALER INHALATION SCH ×2 (07:23→18:57)
[2019-05-23] MEDS: IPRATROPIUM-ALBUTEROL 3 ML NEB INHALATION SCH ×4 (07:23→18:57)
[2019-05-23] MEDS: VANCOMYCIN 1,000 MG in SODIUM CHLORIDE 0.9% 250 ML IVPB SCH ×2 (09:03→19:58)
[2019-05-23] MEDS: HEPARIN SODIUM,PORCINE 5,000 UNIT/ML 1 ML VIAL SQ SCH ×2 (09:04→19:58)
[2019-05-23] MEDS: CYANOCOBALAMIN 500 MCG TAB PO SCH (09:05)
[2019-05-23] MEDS: EZETIMIBE 10 MG TAB PO SCH (09:05)
[2019-05-23] MEDS: CLOPIDOGREL 75 MG TAB PO SCH (09:05)
[2019-05-23] MEDS: FLUDROCORTISONE 0.1 MG TAB PO SCH ×2 (09:05→19:58)
[2019-05-23] MEDS: PYRIDOSTIGMINE 60 MG TAB PO SCH ×3 (09:05→19:59)
[2019-05-23] MEDS: MIDODRINE 5 MG TAB PO SCH ×2 (13:16→17:00)
--- NOTE | 2019-05-23 13:16 | CDI ---
Documentation Clarification Form Date: 05/22/2019 CDS: Cristina Cast RN, CCDS Admit Date: 05/17/2019 Patient Name: Juan Bunch ATTENTION: The Clinical Documentation Specialists (CDI) and [facility] Coding Staff appreciate your assistance in clarifying documentation. Please respond to the clarification below the line at the bottom and electronically sign. The CDI & [facility] Coding staff will review the response and follow-up if needed. Please note: Queries are made part of the Legal Health Record. If you have any questions, please contact the author of this message via ITS. Dr. Stefano Johnson, DO Per your procedure note, a debridement was performed on the right dorsal hand History/Risk Factors: 78-year-old male presents to [facility] as a transfer from [facility] for confusion. Medical history, Right fifth metacarpal fracture 03/29/2019, immobilization of fracture caused pressure ulcer on the dorsum of hand. Clinical Indicators: Ortho consult, ID consult, Irrigation and debridement, Per Procedure note Utilizing a #15 blade I surgically excise the necrotic-appearing tissue within the 1 cm dorsal wound of the right hand. There was good bleeding around the peripheral tissue. I explored the wound for the extensor tendon and I could not find it. I irrigated the wound out copiously with pulse lavage mechanical irrigation. I explored the wound again and did not see any additional necrotic tissue Treatment: Irrigation and Debridement Five elements required for accurate and compliant documentation of a debridement: 1. Technique used - Excise 2. Instrument(s) used - #15 blade 3. Nature of the tissue removed - necrotic appearing tissue 4. Appearance and size of the wound (e.g., down to fresh bleeding tissue, 7cm x 10cm, etc.) 5. Depth of the debridement* (e.g., skin, subcutaneous tissue, fascia, muscle, bone, etc.) In order to capture the severity of condition and code the appropriate procedure; could you please document the following: Excisional debridement (the removal of necrotic, devitalized tissue or slough by means of cutting away of tissue) Non-excisional debridement (the removal of necrotic, devitalized tissue or slough by means of flushing, brushing, or washing. (Irrigation) Other; please specify excisional debridementthe depth of debridement was down to fresh bleeding tissue approximately 5 mm___ Unable to determine (Last Revision: December 2017) MTDD
--- NOTE | 2019-05-23 15:25 | P.GSCN ---
History of Present Illness Consult date: 05/23/19 History of present illness: This is a 78-year-old gentleman who was admitted recently to the hospital with a change in mental status. One of the possibilities included an urine infection. The patient has a history of recurrent urine infections in his care for by Dr.Be aranda. His urinalysis did not look infected but he apparently had some blood per urethra this afternoon. He has a problem with incomplete bladder voiding. The history is taken from his . She does not remember any upper urinary tract studies to evaluate recurring urinary infection. He has been on Flomax. The sepsis appears to have come from an infected hand after a wrist fracture and splint placement. Past Medical History Past Medical History: Cancer, COPD, Pneumonia Additional Past Medical History / Comment(s): Coronary artery disease with previous coronary stenting, COPD, previous history of a permanent pacemaker inse rt, abdominal aortic aneurysm with insertion of an endovascular stent graft, history of orthostatic hypotension, history of frequent falls, history of left hip fracture, history of pelvic fracture, hyperlipidemia, history of atrial fibrillation, hyperlipidemia, melanoma resected back in June 2000, 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, macular degeneration, history of insertion and removal of a heart loop recorder, UTI's, sepsis History of Any Multi-Drug Resistant Organisms: MRSA Year Discovered:: 05/18/19 MDRO Source:: Right Hand Past Surgical History: Heart Catheterization With Stent, Hernia Repair, Joint Replacement, Orthopedic Surgery, Pacemaker Additional Past Surgical History / Comment(s): Resection of a melanoma and squamous cell carcinoma of the skin involving the lower lip, shoulder surgery 2007, insertion and removal of a loop recorder, pacemaker insertion 2014, cardiac catheterization and stenting, left hip ORIF in September 2018, shoulder surgery in July 2018, abdominal aortic aneurysm endovascular stent grafting in October 2018 Past Anesthesia/Blood Transfusion Reactions: No Reported Reaction Date of Last Stent Placement:: 1995 Type of Cardiac Device: Permanent Pacemaker Device Placement Date:: 2014 Past Psychological History: No Psychological Hx Reported Smoking Status: Former smoker - Past Family History Father Family Medical History: No Reported History, Dementia Mother Family Medical History: Diabetes Mellitus Medications and Allergies Home Medications Medication Instructions Recorded Confirmed Type Acetaminophen [Tylenol] 1,000 mg PO Q4-6H PRN 04/16/19 05/17/19 History Atorvastatin Calcium [Lipitor] 20 mg PO HS 04/16/19 05/17/19 History Budesonide/Formoterol Fumarate 2 puff INHALATION RT-BID 04/16/19 05/17/19 History [Symbicort 160-4.5 Mcg Inhaler] Clopidogrel Bisulfate [Plavix] 75 mg PO DAILY 04/16/19 05/17/19 History Cyanocobalamin (Vitamin B-12) 1,000 mcg PO DAILY 04/16/19 05/17/19 History [Vitamin B-12] Ezetimibe [Zetia] 10 mg PO DAILY 04/16/19 05/17/19 History Fludrocortisone [Florinef] 0.1 mg PO DAILY 04/16/19 05/17/19 History Midodrine HCl [ProAmatine] 20 mg PO TID 04/16/19 05/17/19 History Tamsulosin HCl [Flomax] 0.4 mg PO HS 04/16/19 05/17/19 History Albuterol Nebulized [Ventolin 2.5 mg INHALATION RT-TID 05/17/19 05/17/19 History Nebulized] Pyridostigmine [Mestinon] 60 mg PO TID 05/17/19 05/17/19 History Allergies Allergy/AdvReac Type Severity Reaction Status Date / Time acetaminophen [From [place]] AdvReac Hallucinati Verified 05/17/19 15:51 ons adhesive tape AdvReac Unknown Verified 05/17/19 15:51 hydrocodone [From [place]] AdvReac Hallucinati Verified 05/17/19 15:51 ons sulfamethoxazole AdvReac Hallucinati Verified 05/17/19 15:51 [From Bactrim] ons trimethoprim [From Bactrim] AdvReac Hallucinati Verified 05/17/19 15:51 ons Surgical - Exam Vital Signs Temp Pulse Resp BP Pulse Ox 98.1 F 92 18 146/89 97 05/17/19 14:45 05/17/19 14:45 05/17/19 14:45 05/17/19 14:45 05/17/19 14:45 - General chronically ill - Eyes PERRL - ENT no hearing loss - Neck trachea midline - Respiratory normal expansion, normal respiratory effort Results - Labs 05/23/19 05:22 05/23/19 05:22 Abnormal Lab Results - Last 24 Hours (Table) 05/23/19 05/23/19 Range/Units 05:22 05:22 RBC 3.68 L (4.30-5.90) m/uL Hgb 9.5 L (13.0-17.5) gm/dL Hct 30.9 L (39.0-53.0) % MCHC 30.8 L (31.0-37.0) g/dL RDW 16.8 H (11.5-15.5) % Lymphocytes # 0.7 L (1.0-4.8) k/uL Glucose 143 H (74-99) mg/dL Calcium 8.2 L (8.4-10.2) mg/dL Microbiology - Last 24 Hours (Table) 05/18/19 23:10 Anaerobic Culture - Final Hand - Right 05/17/19 16:34 Blood Culture - Preliminary Blood No Growth after 120 hours Diabetes panel 05/23/19 Range/Units 05:22 Sodium 138 (137-145) mmol/L Potassium 3.6 (3.5-5.1) mmol/L Chloride 105 (98-107) mmol/L Carbon Dioxide 28 (22-30) mmol/L BUN 19 (9-20) mg/dL Creatinine 0.87 (0.66-1.25) mg/dL Glucose 143 H (74-99) mg/dL Calcium 8.2 L (8.4-10.2) mg/dL Calcium panel 05/23/19 Range/Units 05:22 Calcium 8.2 L (8.4-10.2) mg/dL Pituitary panel 05/23/19 Range/Units 05:22 Sodium 138 (137-145) mmol/L Potassium 3.6 (3.5-5.1) mmol/L Chloride 105 (98-107) mmol/L Carbon Dioxide 28 (22-30) mmol/L BUN 19 (9-20) mg/dL Creatinine 0.87 (0.66-1.25) mg/dL Glucose 143 H (74-99) mg/dL Calcium 8.2 L (8.4-10.2) mg/dL Adrenal panel 05/23/19 Range/Units 05:22 Sodium 138 (137-145) mmol/L Potassium 3.6 (3.5-5.1) mmol/L Chloride 105 (98-107) mmol/L Carbon Dioxide 28 (22-30) mmol/L BUN 19 (9-20) mg/dL Creatinine 0.87 (0.66-1.25) mg/dL Glucose 143 H (74-99) mg/dL Calcium 8.2 L (8.4-10.2) mg/dL - Imaging CT scan - chest: report reviewed, image reviewed Assessment and Plan Assessment: Impression: Sepsis due to infected again over the wrist. Her chronic urine infections. History of incomplete bladder emptying. Recent hematuria. Recommendations: Urine was not infected on admission. Why he has hematuria now is uncertain. He does have a history of difficulty voiding. I will obtain a repeat urinalysis as well as a postvoid residual. Notify Dr. cotton of his admission
--- NOTE | 2019-05-23 16:20 | P.PN ---
Subjective Progress Note Date: 05/23/19 Principal diagnosis: Patient is a 78 year old male that was recently admitted for change in mental status, had acute delirium, and possible UTI with sepsis and is being closely monitored. Patient is being followed by multiple medical consultants and is scheduled to have a debridement of the right hand this afternoon. is at the bedside requesting a possible urology consult with Dr. Rosa for a urolift that was supposed to be done prior to his fall in March of this year. Patient is sitting up in the chair after working with physical therapy from the bed to the chair and is short of breath. Patient is requiring 4L of 02 via NC. Patient denies any chest pain or palpitations at this time. continued to speak on patient's behalf with occasional nods from the patient. Guarded prognosis. 05/23/2019 Patient is sitting up in bed in no acute distress. Patient was moved today from the chair back to the bed with a total max assist as the patient continues to be orthostatic and extremely weak. Urology consult was placed and is currently pending at this time. Will continue to monitor closely. Per nursing staff patient is eating 100% of each meal and tolerating well. Patient denies any chest pain or palpitations at this time. Patient continues to get winded with exertion. Patient is afebrile. Patient underwent debridement yesterday of the right hand and dressing is dry and intact. Patient is currently still on IV Vanco and will await finalized cultures from the wound to determine if any changes need to be made in antibiotics per infectious disease recommendations. Guarded prognosis. Objective - Vital Signs Vital signs: Vital Signs Temp 98 F 05/23/19 12:00 Pulse 82 05/23/19 16:00 Resp 16 05/23/19 16:00 BP 126/65 05/23/19 16:00 Pulse Ox 96 05/23/19 16:00 Intake & Output 05/22/19 05/23/19 05/23/19 18:59 06:59 18:59 Intake Total 950 250 240 Output Total 205 Balance 745 250 240 Weight 57.5 kg 56 kg Intake: IV 500 Intake, IV Titration 450 250 Amount Lactated Ringers 1,000 ml 200 @ 0 mls/hr IV .[facility] Rx#:[id number] Vancomycin 1,000 mg In 250 250 Sodium Chloride 0.9% 250 ml @ 125 mls/hr IVPB Q12H [facility] Rx#:[id number] Oral 240 Output: Urine 200 Estimated Blood Loss 5 Other: Voiding Method Urinal Urinal # Voids 2 # Bowel Movements 0 - Exam Gen: This is a 78 year old male sitting up in the chair in no acute distress. BP is 94/59, pulse is 82, resp are 16, and 02 is 96% on 4 L via NC HEENT: Head is atraumatic, normocephalic. Pupils equal, round. Sclerae is anicteric. NECK: Supple. No JVD. No lymphadenopathy. No thyromegaly. LUNGS: Breath sounds diminished at the bases with a few scattered rhonchi noted. Expiratory wheezes noted. No intercostal retractions. HEART: S1, S2 muffled ABDOMEN: Soft. Bowel sounds are present. No masses. No tenderness. EXTREMITIES: No pedal edema. No calf tenderness. Multiple skin tears noted bilaterally to upper and lower extremities with dressings applied. NEUROLOGICAL: Patient is awake, alert and oriented x3. Cranial nerves 2 through 12 are grossly intact. SKIN: as noted previously - Labs CBC & Chem 7: 05/23/19 05:22 05/23/19 05:22 Labs: Abnormal Lab Results - Last 24 Hours (Table) 05/23/19 05/23/19 Range/Units 05:22 05:22 RBC 3.68 L (4.30-5.90) m/uL Hgb 9.5 L (13.0-17.5) gm/dL Hct 30.9 L (39.0-53.0) % MCHC 30.8 L (31.0-37.0) g/dL RDW 16.8 H (11.5-15.5) % Lymphocytes # 0.7 L (1.0-4.8) k/uL Glucose 143 H (74-99) mg/dL Calcium 8.2 L (8.4-10.2) mg/dL Microbiology - Last 24 Hours (Table) 05/18/19 23:10 Anaerobic Culture - Final Hand - Right 05/17/19 16:34 Blood Culture - Preliminary Blood No Growth after 120 hours Assessment and Plan Assessment: Change in mental status, acute metabolic encephalopathy, multifactorial, present on admission Acute urinary tract infection with possible sepsis, present on admission Right forearm wound with MRSA Subacute right ring finger, extensor tendon rupture History of right fifth metacarpal fracture History of bilateral extremity wounds with cellulitis Severe gait dysfunction Severe protein calorie malnutrition History of coronary artery disease/stenting History of recent pelvic fracture with gait dysfunction Chronic obstructive pulmonary disease history of pneumonia History of elevated alkaline phosphatase History of permanent pacemaker History of abdominal aortic aneurysm with endovascular stent graft History of frequent falls History of orthostatic hypotension History of left hip fracture Hyperlipidemia History of atrial fibrillation, paroxysmal History of melanoma resection History is, 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 Urology consult was placed and is pending at this time. Infectious disease is following. Pt to continue on IV antibiotics at this time. Will await finalized cultures of the wound to adjust antibiotics per infectious disease recommendations. Patient continues to be orthostatic with position changes. Florinef will be increased. 8 AM cortisol level ordered for the a.m. Will continue to monitor. Prognosis is guarded. Further recommendations to follow.
[2019-05-23] MEDS: 0.9% NACL WITH KCL 20 MEQ/L 1,000 ML with MVI, ADULT NO.4 WITH VIT K 10 ML, THIAMINE 10... IV SCH ×4 (17:00)
--- NOTE | 2019-05-23 19:21 | PN ---
PROGRESS NOTE DATE OF SERVICE: 05/23/2019. REASON FOR FOLLOWUP VISIT: 1. Right hand MRSA infection with possible osteomyelitis. 2. Bilateral lower extremity wounds on pressure ulcer. 3. Stage III sacral pressure ulcer. INTERVAL HISTORY: The patient is currently afebrile. Patient is status post debridement of his right hand dorsum wound and apparently did have extension down to the bone per the . The patient denies having any chest pain or shortness of breath or cough. No abdominal pain. No diarrhea. PHYSICAL EXAMINATION: Blood pressure 126/65 with a pulse of 82. Temperature 98. He is 96% on 4 L nasal cannula. General description is an elderly male up in the chair in no distress. Respiratory system: Unlabored breathing with decreased breath sounds in the bases. Heart is S1, S2. Regular rate and rhythm. Abdomen soft. No tenderness. LABS: Hemoglobin 9.5, white count 5.1. BUN of 19, creatinine 0.87. DIAGNOSTIC IMPRESSION/PLAN: 1. Patient with right hand dorsum chronic nonhealing wound with evidence of osteomyelitis, subacute, status post debridement. Culture positive for MRSA. We will get a PICC line for outpatient IV antibiotic therapy. A total of 6 week course of vancomycin, pharmacy to dose with weekly morning of CBC and BMP and sed rate. 2. The patient with bilateral lower extremity non pressure ulcer related to wound control, continue Aquacel silver dressing. 3. Stage III sacral pressure ulcer. Local wound care with Medihoney to keep the area off pressure. 4. at the bedside. Questions answered. MMODL / IJN: [id number] /
[2019-05-23] MEDS: ATORVASTATIN 20 MG TAB PO SCH (19:58)
[2019-05-23] MEDS: risperiDONE 0.25 MG TAB PO SCH (19:58)
[2019-05-23] MEDS: TAMSULOSIN 0.4 MG CAP.ER.24H PO SCH (19:59)
[2019-05-24 03:30] LABS: Appearance,Urine Clear (Clear); Bacteria,Urine Rare /hpf; Bilirubin,Urine Negative (Negative); Blood,Urine Trace (Negative); Color,Urine Light Yellow; Glucose,Urine (UA) Negative (Negative); Ketones,Urine Negative (Negative); Leukocyte Esterase,Urine Negative (Negative); Mucus,Urine Rare /hpf; Nitrite,Urine Negative (Negative); PH, Urine 7.5 (5.0-8.0); Protein,Urine Negative (Negative); RBC,Urine 13 /hpf (0-5); Specific Gravity,Urine 1.006 (1.001-1.035); Squamous Epithelial Cell,Urine <1 /hpf (0-4); Urobilinogen,Urine <2.0 mg/dL (<2.0)
[2019-05-24 06:17] LABS: Anisocytosis Slight; Basophils % (A) 1 %; Eosinophils # (A) 0.1 k/uL (0-0.7); Eosinophils % (A) 1 %; HCT 30.5 % (39.0-53.0); HGB 9.3 gm/dL (13.0-17.5); Hypochromasia Moderate; Lymphocytes # (A) 1.2 k/uL (1.0-4.8); Lymphocytes % (A) 15 %; MCH 25.3 pg (25.0-35.0); MCHC 30.6 g/dL (31.0-37.0); MCV 82.9 fL (80.0-100.0); Mean Platelet Volume 6.9; Monocytes # (A) 0.6 k/uL (0-1.0); Monocytes % (A) 7 %; Neutrophils # (A) 5.9 k/uL (1.3-7.7); Neutrophils % (A) 74 %; Platelet Count 275 k/uL (150-450); RBC 3.68 m/uL (4.30-5.90); RDW 16.5 % (11.5-15.5); WBC 7.9 k/uL (3.8-10.6)
[2019-05-24 06:18] LABS: African American GFR (CKD) >90 (>60 ml/min/1.73 sqM); Anion Gap 6 mmol/L; Blood Urea Nitrogen 19 mg/dL (9-20); Calcium 7.8 mg/dL (8.4-10.2); Carbon Dioxide 30 mmol/L (22-30); Chloride 105 mmol/L (98-107); Glucose 89 mg/dL (74-99); Potassium 3.1 mmol/L (3.5-5.1); Sodium 141 mmol/L (137-145)
[2019-05-24] MEDS: MIDODRINE 5 MG TAB PO SCH ×3 (06:32→18:09)
[2019-05-24] MEDS: PANTOPRAZOLE 40 MG TABLET PO SCH (06:32)
[2019-05-24] MEDS: SYMBICORT 160-4.5 MCG INHALER INHALATION SCH ×2 (07:14→19:16)
[2019-05-24] MEDS: IPRATROPIUM-ALBUTEROL 3 ML NEB INHALATION SCH ×4 (07:14→19:16)
--- NOTE | 2019-05-24 08:47 | CDI ---
Documentation Clarification Form Date: 05/24/2019 7:59:39 AM From: Cristina Cast RN CCDS Admit Date: 05/17/2019 2:44:00 PM Patient Name: Juan Bunch Visit Number: [id number] Discharge Date: ATTENTION: The Clinical Documentation Specialists (CDI) and [facility] Coding Staff appreciate your assistance in clarifying documentation. Please respond to the clarification below the line at the bottom and electronically sign. The CDI & [facility] Coding staff will review the response and follow-up if needed. Please note: Queries are made part of the Legal Health Record. If you have any questions, please contact the author of this message via ITS. Dr. Pramod Doan Conflicting documentation has been found in the medical record: Nursing documentation 05/17/2019 through 05/23/2019 - Coccyx Stage II Pressure Ulcer on 05/23/2019 changed to Stage III Coccyx pressure Ulcer Your Documentation 05/23/2019 - Stage III Sacral Pressure Ulcer History/Risk Factors: 78-year-old female presents to the ED as a Transfer from [facility] for confusion. Medical Hx, Frequent falls with left hip and pelvis fracture. Patient was in rehab. Clinical Indicators: Coccyx pressure ulcer poa Scant serous drainage per nursing documentation Sacral pressure ulcer stage III Treatment: Saline Irrigation, Medihoney, Gauze and Sponge In your opinion, what is the most clinically appropriate diagnosis for this patient? * Sacral Pressure ulcer Stage II evolved to Stage III * Coccyx Pressure ulcer Stage II evolved to Stage III * Sacral Pressure ulcer Stage III POA * Coccyx Pressure ulcer Stage III POA * Other explanation of clinical findings * Unable to determine (no explanation for clinical findings) (Last Revision: December 2017) Stage III sacral pressure ulcer, present on admission, no cellulitis MTDD
[2019-05-24] MEDS: VANCOMYCIN 1,000 MG in SODIUM CHLORIDE 0.9% 250 ML IVPB SCH ×2 (09:15→21:09)
[2019-05-24] MEDS: EZETIMIBE 10 MG TAB PO SCH (09:17)
[2019-05-24] MEDS: PYRIDOSTIGMINE 60 MG TAB PO SCH ×3 (09:17→21:22)
[2019-05-24] MEDS: CLOPIDOGREL 75 MG TAB PO SCH (09:17)
[2019-05-24] MEDS: CYANOCOBALAMIN 500 MCG TAB PO SCH (09:17)
[2019-05-24] MEDS: FLUDROCORTISONE 0.1 MG TAB PO SCH ×2 (09:17→21:23)
[2019-05-24] MEDS: HEPARIN SODIUM,PORCINE 5,000 UNIT/ML 1 ML VIAL SQ SCH ×2 (09:17→21:21)
[2019-05-24] MEDS ORDERED: LIDOCAINE 1% INJ 10MG/ML (20 ML MDV) ONE (09:48)
[2019-05-24] MEDS ORDERED: LIDOCAINE 1% INJ 10MG/ML (20 ML MDV) SQ ONE (09:53)
[2019-05-24] MEDS: ACETAMINOPHEN TAB 500 MG TAB PO PRN (12:19)
--- NOTE | 2019-05-24 12:53 | P.PN ---
Subjective Progress Note Date: 05/24/19 Principal diagnosis: Patient is a 78 year old male that was recently admitted for change in mental status, had acute delirium, and possible UTI with sepsis and is being closely monitored. Patient is being followed by multiple medical consultants and is scheduled to have a debridement of the right hand this afternoon. is at the bedside requesting a possible urology consult with Dr. Rosa for a urolift that was supposed to be done prior to his fall in March of this year. Patient is sitting up in the chair after working with physical therapy from the bed to the chair and is short of breath. Patient is requiring 4L of 02 via NC. Patient denies any chest pain or palpitations at this time. continued to speak on patient's behalf with occasional nods from the patient. Guarded prognosis. 05/23/2019 Patient is sitting up in bed in no acute distress. Patient was moved today from the chair back to the bed with a total max assist as the patient continues to be orthostatic and extremely weak. Urology consult was placed and is currently pending at this time. Will continue to monitor closely. Per nursing staff patient is eating 100% of each meal and tolerating well. Patient denies any chest pain or palpitations at this time. Patient continues to get winded with exertion. Patient is afebrile. Patient underwent debridement yesterday of the right hand and dressing is dry and intact. Patient is currently still on IV Vanco and will await finalized cultures from the wound to determine if any changes need to be made in antibiotics per infectious disease recommendations. Guarded prognosis. 05/24/2019 Patient is sitting up in bed in no acute distress. Patient is just returned from receiving a PICC line to the right upper extremity for continued IV anti biotic therapy in the outpatient setting. He is currently on IV Vanco per infectious disease recommendations. Wound culture of the hand from 05/18/2019 shows MRSA. Dressing to the right hand is dry and intact with an Mir wrap covering the gauze. Multiple Kerlix dressings noted to bilateral lower extremities. Patient is much more alert today and answering questions appropriately and responding to commands appropriately. is at the bedside. Spoke to her at length today about the plan for discharge and she states they would like to go back to [facility] but is unsure if they handle IV antibiotic therapy. Patient states that he was at [facility] previously and would not like to return there if at all possible. Will continue to monitor closely. Objective - Vital Signs Vital signs: Vital Signs Temp 98.0 F 05/24/19 08:00 Pulse 80 05/24/19 11:05 Resp 18 05/24/19 08:00 BP 126/74 05/24/19 08:00 Pulse Ox 98 05/24/19 08:00 Intake & Output 05/23/19 05/24/19 05/24/19 18:59 06:59 18:59 Intake Total 360 Balance 360 Weight 45 kg Intake: Oral 360 Other: Voiding Method Urinal Urinal Diaper # Voids 2 1 # Bowel Movements 0 - Exam Gen: This is a 78 year old male sitting up in bed in no acute distress. BP is 126/74, pulse is 76, resp are 16, and 02 is 98% on 2 L via NC, temp is 98F. HEENT: Head is atraumatic, normocephalic. Pupils equal, round. Sclerae is anicteric. NECK: Supple. No JVD. No lymphadenopathy. No thyromegaly. LUNGS: Breath sounds diminished at the bases with a few scattered rhonchi noted. Mild expiratory wheezes noted. No intercostal retractions. HEART: S1, S2 muffled ABDOMEN: Soft. Thin, Bowel sounds are present. No masses. No tenderness. EXTREMITIES: No pedal edema. No calf tenderness. Multiple skin tears noted bilaterally to upper and lower extremities with dressings applied. Dressings are dry and intact. NEUROLOGICAL: Patient is awake, alert and oriented x3. Cranial nerves 2 through 12 are grossly intact. SKIN: as noted previously - Labs CBC & Chem 7: 05/24/19 05:30 05/24/19 05:30 Labs: Abnormal Lab Results - Last 24 Hours (Table) 05/24/19 05/24/19 05/24/19 Range/Units 02:40 05:30 05:30 RBC 3.68 L (4.30-5.90) m/uL Hgb 9.3 L (13.0-17.5) gm/dL Hct 30.5 L (39.0-53.0) % MCHC 30.6 L (31.0-37.0) g/dL RDW 16.5 H (11.5-15.5) % Potassium 3.1 L (3.5-5.1) mmol/L Calcium 7.8 L (8.4-10.2) mg/dL Urine Blood Trace H (Negative) Urine RBC 13 H (0-5) /hpf Urine Bacteria Rare H (None) /hpf Urine Mucus Rare H (None) /hpf Microbiology - Last 24 Hours (Table) 05/18/19 11:30 Gram Stain - Final Hand - Right Wound Culture - Final Methicillin resist S. aureus 05/17/19 16:34 Blood Culture - Final Blood No Growth after 144 hours Assessment and Plan Assessment: Change in mental status, acute metabolic encephalopathy, multifactorial, present on admission Acute urinary tract infection with possible sepsis, present on admission Right forearm wound with MRSA Subacute right ring finger, extensor tendon rupture History of right fifth metacarpal fracture History of bilateral extremity wounds with cellulitis Severe gait dysfunction Severe protein calorie malnutrition History of coronary artery disease/stenting History of recent pelvic fracture with gait dysfunction Chronic obstructive pulmonary disease history of pneumonia History of elevated alkaline phosphatase History of permanent pacemaker History of abdominal aortic aneurysm with endovascular stent graft History of frequent falls History of orthostatic hypotension History of left hip fracture Hyperlipidemia History of atrial fibrillation, paroxysmal History of melanoma 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 Multiple medical consultations are following. PT/OT are following. Pt to continue on IV antibiotics in the form of Vanco at this time. 8 AM cortisol level was 13 today and within normal limits. Patient is breathing much easier today and nursing staff are continuing to work with weaning oxygen needs at this time. Patient is on 2 L O2 via nasal cannula. Spoke to the about discharge plans and she would like him to return to [facility] for continued IV antibiotic therapy and rehab. Case management and social work are following. Will continue to monitor vital signs and labs closely. Prognosis is guarded. Fu rther recommendations to follow. Possible discharge in 24-48 hours.
--- NOTE | 2019-05-24 13:15 | IR ---
EXAMINATION TYPE: IR cvc insert >=5 years DATE OF EXAM: 05/24/2019 COMPARISON: NONE CLINICAL HISTORY: Infection Needs long-term intravenous access for antibiotics. PROCEDURE: After informed consent, the skin overlying the right brachial vein was localized with ultrasound and noted to be compressible and patent. An ultrasound image was obtained and submitted on the patient's chart. The overlying skin was prepped and draped and Lidocaine was used for local anesthesia. A sk in razia was made with a scalpel. Access was gained to the vein under ultrasound guidance with a 21 g auge needle and a 0.018 inch wire was advanced. Access site was dilated with Peel-Away sheath and ca theter tailored to the appropriate length and advanced such that the distal tip is at the cavoatrial junction. Spot image was obtained verifying placement. Catheter was fixed to the skin and a sterile dressing was placed following hemostasis. Catheter was aspirated and flushed with saline. Patient was discharged in stable condition without complication.Maximal barrier technique is utilized. Ultra sound image is documented on the chart. Ultrasound used with sterile technique. Fluoro time and fluoroscopic images submitted to document procedure: 150 intraoperative C-arm images. 0.4 minutes fluoroscopy time. IMPRESSION: STATUS POST ULTRASOUND AND FLUOROSCOPIC GUIDED PICC LINE PLACEMENT, READY FOR USE. THIS PROCEDURE WAS PERFORMED BY THE UNDERSIGNED.
--- NOTE | 2019-05-24 13:35 | P.PN ---
Progress Note - Text Progress Note Date: 05/24/19 Patient seen lying in bed. Patient is verbal today. Patient denies any complaints of pain in his hand. The incision and wound appears stable. There is no erythema. He again is unable to extend the ring finger. Impression: Status post incision with irrigation debridement and secondary closure right dorsal hand wound History of subacute right ring finger extensor tendon rupture Plan: Wound care as per infectious disease recommendations IV antibiotics as per infectious disease recommendations I recommend removal of sutures approximate 2 weeks post discharge
[2019-05-24 13:54] VITALS: BMI 13.4
[2019-05-24] MEDS ORDERED: Potassium Replacement Protocol 1 EACH MISC MISCELLANE PRN (17:21)
[2019-05-24] MEDS: POTASSIUM CHLORIDE ER 20 MEQ TAB.ER PO SCH (18:09)
--- NOTE | 2019-05-24 19:42 | PN ---
PROGRESS NOTE DATE OF SERVICE: 05/24/2019. REASON FOR FOLLOWUP: 1. Right hand MRSA infection with question of possible osteomyelitis. 2. Bilateral lower extremity wound. INTERVAL HISTORY: The patient is currently afebrile, he has been breathing comfortably. Denies having any chest pain. No shortness of breath or cough. No nausea or vomiting. No abdominal pain and no pain to the right forearm wound area. PHYSICAL EXAMINATION: Blood pressure is 99/61 with a pulse of 88, temperature is 97.8. He is 95% on 2 L nasal cannula. General description is an elderly male lying in bed in no distress. Respiratory system: Unlabored breathing. Clear to auscultation anteriorly. Heart S1, S2. Regular rate and rhythm. ABDOMEN: Soft, no tenderness. LABS: Hemoglobin is 9.8, white count 7.9, BUN of 19, creatinine 0.88. DIAGNOSTIC IMPRESSION AND PLAN: 1. Patient is right hand wound status post debridement. Culture positive for MRSA. The patient is currently covered with vancomycin, pharmacy to dose. Vanco level . He did get a PICC line. Continue vancomycin for 4-6 weeks. Monitor CBC and BMP and sed rate. Currently no open wound on the right hand. Local wound care with dry protective dressing. 2. Bilateral lower extremity wound with no cellulitis. Local wound care with Aquacel dressing. 3. Patient has stage III sacral pressure ulcer. Local wound care with Medihoney. Keep the area off the pressure. MMODL / IJN: [id number] /
[2019-05-24] MEDS: 0.9% NACL WITH KCL 20 MEQ/L 1,000 ML with MVI, ADULT NO.4 WITH VIT K 10 ML, THIAMINE 10... IV SCH ×8 (21:02→21:35)
[2019-05-24] MEDS: risperiDONE 0.25 MG TAB PO SCH (21:21)
[2019-05-24] MEDS: TAMSULOSIN 0.4 MG CAP.ER.24H PO SCH (21:21)
[2019-05-24] MEDS: ATORVASTATIN 20 MG TAB PO SCH (21:22)
[2019-05-25] MEDS: MIDODRINE 5 MG TAB PO SCH ×3 (05:44→16:52)
[2019-05-25] MEDS: PANTOPRAZOLE 40 MG TABLET PO SCH (06:30)
[2019-05-25] MEDS ORDERED: VANCOMYCIN TROUGH DUE 1 EACH MISC MISCELLANE ONE (07:00)
[2019-05-25 07:25] LABS: African American GFR (CKD) >90 (>60 ml/min/1.73 sqM); Anion Gap 6 mmol/L; Blood Urea Nitrogen 18 mg/dL (9-20); Calcium 8.1 mg/dL (8.4-10.2); Carbon Dioxide 29 mmol/L (22-30); Chloride 107 mmol/L (98-107); Glucose 99 mg/dL (74-99); Sodium 142 mmol/L (137-145)
[2019-05-25 07:26] LABS: Anisocytosis Slight; Basophils % (A) 0 %; Eosinophils # (A) 0.1 k/uL (0-0.7); Eosinophils % (A) 1 %; HCT 31.2 % (39.0-53.0); HGB 9.7 gm/dL (13.0-17.5); Hypochromasia Moderate; Lymphocytes # (A) 0.9 k/uL (1.0-4.8); Lymphocytes % (A) 12 %; MCHC 31.3 g/dL (31.0-37.0); MCV 83.1 fL (80.0-100.0); Mean Platelet Volume 7.2; Monocytes # (A) 0.5 k/uL (0-1.0); Monocytes % (A) 6 %; Neutrophils # (A) 6.1 k/uL (1.3-7.7); Neutrophils % (A) 79 %; Platelet Count 287 k/uL (150-450); RBC 3.75 m/uL (4.30-5.90); RDW 16.2 % (11.5-15.5); WBC 7.8 k/uL (3.8-10.6)
[2019-05-25] MEDS ORDERED: Potassium Replacement Protocol 1 EACH MISC MISCELLANE PRN (07:41)
[2019-05-25] MEDS: SYMBICORT 160-4.5 MCG INHALER INHALATION SCH ×2 (08:15→20:39)
[2019-05-25] MEDS: IPRATROPIUM-ALBUTEROL 3 ML NEB INHALATION SCH ×4 (08:15→20:27)
--- NOTE | 2019-05-25 08:24 | CDI ---
Documentation Clarification Form Date: 05/22/2019 CDS: Cristina Cast RN, CCDS Admit Date: 05/17/2019 Patient Name: Juan Bunch ATTENTION: The Clinical Documentation Specialists (CDI) and [facility] Coding Staff appreciate your assistance in clarifying documentation. Please respond to the clarification below the line at the bottom and electronically sign. The CDI & [facility] Coding staff will review the response and follow-up if needed. Please note: Queries are made part of the Legal Health Record. If you have any questions, please contact the author of this message via ITS. Dr. Stefano Johnson, DO Per your procedure note, a debridement was performed on the right dorsal hand History/Risk Factors: 78-year-old male presents to [facility] as a transfer from [facility] for confusion. Medical history, Right fifth metacarpal fracture 03/29/2019, immobilization of fracture caused pressure ulcer on the dorsum of hand. Clinical Indicators: Ortho consult, ID consult, Irrigation and debridement, Per Procedure note Utilizing a #15 blade I surgically excise the necrotic-appearing tissue within the 1 cm dorsal wound of the right hand. There was good bleeding around the peripheral tissue. I explored the wound for the extensor tendon and I could not find it. I irrigated the wound out copiously with pulse lavage mechanical irrigation. I explored the wound again and did not see any additional necrotic tissue Treatment: Irrigation and Debridement Five elements required for accurate and compliant documentation of a debridement: 1.Technique used - Excise 2.Instrument(s) used - #15 blade 3.Nature of the tissue removed - necrotic appearing tissue 4.Appearance and size of the wound (e.g., down to fresh bleeding tissue, 7cm x 10cm, etc.) 5.Depth of the debridement* (e.g., skin, subcutaneous tissue, fascia, muscle, bone, etc.) In order to capture the severity of condition and code the appropriate procedure; could you please document the following: Excisional debridement (the removal of necrotic, devitalized tissue or slough by means of cutting away of tissue) Non-excisional debridement (the removal of necrotic, devitalized tissue or slough by means of flushing, brushing, or washing. (Irrigation) Other; please specify excisional debridement Unable to determine (Last Revision: December 2017) MTDD
[2019-05-25] MEDS: EZETIMIBE 10 MG TAB PO SCH (09:19)
[2019-05-25] MEDS: CYANOCOBALAMIN 500 MCG TAB PO SCH (09:19)
[2019-05-25] MEDS: FLUDROCORTISONE 0.1 MG TAB PO SCH ×2 (09:19→20:34)
[2019-05-25] MEDS: POTASSIUM CHLORIDE ER 20 MEQ TAB.ER PO SCH ×3 (09:19→12:48)
[2019-05-25] MEDS: CLOPIDOGREL 75 MG TAB PO SCH (09:19)
[2019-05-25] MEDS: PYRIDOSTIGMINE 60 MG TAB PO SCH ×3 (09:19→21:54)
[2019-05-25] MEDS: HEPARIN SODIUM,PORCINE 5,000 UNIT/ML 1 ML VIAL SQ SCH ×2 (09:20→20:35)
[2019-05-25] MEDS: VANCOMYCIN 750 MG in SODIUM CHLORIDE 0.9% 250 ML IVPB SCH ×2 (10:58→21:54)
--- NOTE | 2019-05-25 16:33 | P.PN ---
Subjective Progress Note Date: 05/25/19 Principal diagnosis: Patient is a 78 year old male that was recently admitted for change in mental status, had acute delirium, and possible UTI with sepsis and is being closely monitored. Patient is being followed by multiple medical consultants and is scheduled to have a debridement of the right hand this afternoon. is at the bedside requesting a possible urology consult with Dr. Rosa for a urolift that was supposed to be done prior to his fall in March of this year. Patient is sitting up in the chair after working with physical therapy from the bed to the chair and is short of breath. Patient is requiring 4L of 02 via NC. Patient denies any chest pain or palpitations at this time. continued to speak on patient's behalf with occasional nods from the patient. Guarded prognosis. 05/23/2019 Patient is sitting up in bed in no acute distress. Patient was moved today from the chair back to the bed with a total max assist as the patient continues to be orthostatic and extremely weak. Urology consult was placed and is currently pending at this time. Will continue to monitor closely. Per nursing staff patient is eating 100% of each meal and tolerating well. Patient denies any chest pain or palpitations at this time. Patient continues to get winded with exertion. Patient is afebrile. Patient underwent debridement yesterday of the right hand and dressing is dry and intact. Patient is currently still on IV Vanco and will await finalized cultures from the wound to determine if any changes need to be made in antibiotics per infectious disease recommendations. Guarded prognosis. 05/24/2019 Patient is sitting up in bed in no acute distress. Patient is just returned from receiving a PICC line to the right upper extremity for continued IV anti biotic therapy in the outpatient setting. He is currently on IV Vanco per infectious disease recommendations. Wound culture of the hand from 05/18/2019 shows MRSA. Dressing to the right hand is dry and intact with an Mir wrap covering the gauze. Multiple Kerlix dressings noted to bilateral lower extremities. Patient is much more alert today and answering questions appropriately and responding to commands appropriately. is at the bedside. Spoke to her at length today about the plan for discharge and she states they would like to go back to [place] but is unsure if they handle IV antibiotic therapy. Patient states that he was at [facility] previously and would not like to return there if at all possible. Will continue to monitor closely. 05/25/2019 Patient is sitting up in the chair after working with physical therapy with the at the bedside. Patient is enjoying a cup of yogurt in no acute distress. Patient is much more alert and having appropriate conversations and responding appropriately. Patient is currently on room air and saturating well. Patient's blood pressure was slightly elevated last night into this morning and will be decreasing Florinef back to 0.1 mg twice daily. Will continue to monitor closely. Patient denies any chest pain, shortness of breath, or palpitations at this time. Patient remains afebrile. Patient denies any nausea or vomiting and has been tolerating diet. has been bringing in food and encouraging his oral intake. Patient enjoys yogurt and Magic cups. PT/OT are following closely and awaiting report at this time. Patient is currently still on IV antibiotics in the form of Vanco and will continue in the outpatient setting. Patient does have a PICC line in the right upper arm. Objective - Vital Signs Vital signs: Vital Signs Temp 98.3 F 05/25/19 12:26 Pulse 75 05/25/19 12:26 Resp 18 05/25/19 12:26 BP 153/76 05/25/19 12:26 Pulse Ox 98 05/25/19 12:26 Intake & Output 05/24/19 05/25/19 05/25/19 18:59 06:59 18:59 Intake Total 100 480 302 Output Total 600 Balance 100 -120 302 Weight 45 kg 45 kg Intake: Intake, IV Titration 400 Amount 0.9% NaCl with KCl 20 Meq 400 /l 1,000 ml @ 50 mls/hr IV .[id number] JUAN with Mvi, Adult No.4 with Vit K 10 ml with Thiamine 100 mg with Folic Acid 1 mg Rx#: [id number] Oral 100 80 302 Output: Urine 600 Other: Voiding Method Urinal Urinal Diaper Diaper Diaper # Voids 4 3 - Exam Gen: This is a 78 year old male sitting up in bed in no acute distress. BP is 153/76, pulse is 75, resp are 16, and 02 is 98% on room air, temp is 98.3F. HEENT: Head is atraumatic, normocephalic. Pupils equal, round. Sclerae is anicteric. NECK: Supple. No JVD. No lymphadenopathy. No thyromegaly. LUNGS: Breath sounds diminished at the bases with a few scattered rhonchi noted. Mild expiratory wheezes noted with improvement. No intercostal retractions. HEART: S1, S2 muffled ABDOMEN: Soft. Thin, Bowel sounds are present. No masses. No tenderness. EXTREMITIES: No pedal edema. No calf tenderness. Multiple skin tears noted bilaterally to upper and lower extremities with dressings applied. Dressings are dry and intact. NEUROLOGICAL: Patient is awake, alert and oriented x3. Cranial nerves 2 through 12 are grossly intact. SKIN: as noted previously - Labs CBC & Chem 7: 05/25/19 06:35 05/25/19 06:35 Labs: Abnormal Lab Results - Last 24 Hours (Table) 05/25/19 05/25/19 Range/Units 06:35 06:35 RBC 3.75 L (4.30-5.90) m/uL Hgb 9.7 L (13.0-17.5) gm/dL Hct 31.2 L (39.0-53.0) % RDW 16.2 H (11.5-15.5) % Lymphocytes # 0.9 L (1.0-4.8) k/uL Potassium 3.0 L (3.5-5.1) mmol/L Calcium 8.1 L (8.4-10.2) mg/dL Microbiology - Last 24 Hours (Table) 05/24/19 11:50 Urine Culture - Preliminary Urine,Clean Catch Assessment and Plan Assessment: Change in mental status, acute metabolic encephalopathy, multifactorial, present on admission Acute urinary tract infection with possible sepsis, present on admission Right forearm wound with MRSA Subacute right ring finger, extensor tendon rupture History of right fifth metacarpal fracture History of bilateral extremity wounds with cellulitis Severe gait dysfunction Severe protein calorie malnutrition History of coronary artery disease/stenting History of recent pelvic fracture with gait dysfunction Chronic obstructive pulmonary disease history of pneumonia History of elevated alkaline phosphatase History of permanent pacemaker History of abdominal aortic aneurysm with endovascular stent graft History of frequent falls History of orthostatic hypotension History of left hip fracture Hyperlipidemia History of atrial fibrillation, paroxysmal History of melanoma 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 Multiple medical consultations are following. PT/OT are following. Pt to continue on IV antibiotics in the form of Vanco at this time. Patient will continue with IV antibiotics per infectious disease recommendations at rehab. Case management and social work are following. Patient and like to return to [facility] for continued PT/OT as well as IV antibiotic therapy. Will continue to monitor vital signs and labs closely. Prognosis is guarded. Further recommendations to follow. Possible discharge in 24-48 hours.
--- NOTE | 2019-05-25 19:31 | PN ---
PROGRESS NOTE DATE OF SERVICE: 05/25/2019 REASON FOR FOLLOWUP: Right hand MRSA infection. INTERVAL HISTORY: The patient is currently afebrile. The patient has been breathing comfortably. Denies having any chest pain or any cough. No nausea, vomiting, abdominal pain or any diarrhea. Denies any pain to the right hand wound. PHYSICAL EXAMINATION: Blood pressure 116/71 with a pulse of 73, temperature 97.8. He is 94% on room air. General description is an elderly male lying in bed in no distress. RESPIRATORY SYSTEM: Unlabored breathing. Clear to auscultation anteriorly. HEART: S1, S2. Regular rate and rhythm. ABDOMEN: Soft. No tenderness. Right hand is currently dressed up. No obvious drainage on the dressing. LABS: Hemoglobin 9.7, white count 7.8, creatinine 0.93. DIAGNOSTIC IMPRESSION AND PLAN: Patient with methicillin-resistant Staphylococcus aeruginosa right hand wound with secondary cellulitis. This patient's wound is extending down deep to the bone per the operative report. Patient is currently on vancomycin, Pharmacy to dose; to continue for a total of 4 to 6 weeks, adjusting antibiotic on the basis of clinical response. Continue with supportive care. MMODL / IJN: [id number] /
[2019-05-25] MEDS: ATORVASTATIN 20 MG TAB PO SCH (20:34)
[2019-05-25] MEDS: risperiDONE 0.25 MG TAB PO SCH (20:34)
[2019-05-25] MEDS: TAMSULOSIN 0.4 MG CAP.ER.24H PO SCH (20:34)
[2019-05-25] MEDS: 0.9% NACL WITH KCL 20 MEQ/L 1,000 ML with MVI, ADULT NO.4 WITH VIT K 10 ML, THIAMINE 10... IV SCH ×4 (21:54)
[2019-05-26] MEDS: MIDODRINE 5 MG TAB PO SCH ×2 (06:29→11:50)
[2019-05-26] MEDS: PANTOPRAZOLE 40 MG TABLET PO SCH (06:29)
[2019-05-26] MEDS: ACETAMINOPHEN TAB 500 MG TAB PO PRN (06:29)
[2019-05-26] MEDS: IPRATROPIUM-ALBUTEROL 3 ML NEB INHALATION SCH ×3 (08:04→15:48)
[2019-05-26] MEDS: SYMBICORT 160-4.5 MCG INHALER INHALATION SCH (08:04)
[2019-05-26] MEDS: PYRIDOSTIGMINE 60 MG TAB PO SCH (08:19)
[2019-05-26] MEDS: EZETIMIBE 10 MG TAB PO SCH (08:19)
[2019-05-26] MEDS: CLOPIDOGREL 75 MG TAB PO SCH (08:19)
[2019-05-26] MEDS: HEPARIN SODIUM,PORCINE 5,000 UNIT/ML 1 ML VIAL SQ SCH (08:20)
[2019-05-26] MEDS: FLUDROCORTISONE 0.1 MG TAB PO SCH (08:20)
[2019-05-26] MEDS: CYANOCOBALAMIN 500 MCG TAB PO SCH (08:20)
[2019-05-26 08:36] VITALS: RESP 18
[2019-05-26] MEDS: VANCOMYCIN 750 MG in SODIUM CHLORIDE 0.9% 250 ML IVPB SCH (11:50)
[2019-05-26 12:26] VITALS: BP 112/67; PULSE 66; TEMP 98.2
--- NOTE | 2019-05-26 12:31 | P.DS ---
Providers Date of admission: 05/17/19 14:44 Expected date of discharge: 05/26/19 Attending physician: Sherita Winter Consults: 05/17/19 16:14 Consult Physician Routine Consulting Provider: Odessa Cooley Consult Reason/Comments: confusion, AMS Do you want consulting provider notified?: Yes Consult Physician Routine Consulting Provider: Pramod Doan Consult Reason/Comments: sepsis Do you want consulting provider notified?: Yes 05/19/19 11:02 Consult Physician Routine Consulting Provider: Jonathan Keating Consult Reason/Comments: right hand/wrist fracture and left hip fracture (March 2019) Do you want consulting provider notified?: Yes 05/23/19 14:47 Consult Physician Urgent Consulting Provider: Ashkan Rosa Consult Reason/Comments: chronic UTI's/familiar with the patient in the outpatient setting/urolift Do you want consulting provider notified?: Yes Primary care physician: Sherita Winter Hospital Course: Final diagnosis Change in mental status, acute metabolic encephalopathy, multifactorial, present on admission Acute urinary tract infection with possible sepsis, present on admission Right forearm wound with MRSA Subacute right ring finger, extensor tendon rupture History of right fifth metacarpal fracture History of bilateral extremity wounds with cellulitis Severe gait dysfunction Severe protein calorie malnutrition History of recent pelvic fracture with gait dysfunction History of coronary artery disease, stents Chronic obstructive pulmonary disease History of pneumonia History of elevated alkaline phosphatase History of permanent pacemaker History of abdominal aortic aneurysm with endovascular stent graft History of frequent falls history of orthostatic hypotension History of left hip fracture Hyperlipidemia History of atrial fibrillation, paroxysmal History of melanoma resection 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 Infectious disease is arranging IV antibiotics upon discharge. Total time taken is 35 minutes. History of present illness This is a 78-year-old male who was recently admitted for change in mental status, had acute delirium, and possible UTI with sepsis and was being closely monitored. Multiple medical consultations were following. During hospitalization patient underwent a debridement and irrigation of the right hand wound with Dr. Johnson. Patient will follow-up in the outpatient setting for suture removal in approximately one week. Patient will continue on IV Vanco per infectious disease recommendations and will follow-up at the wound clinic upon discharge. PT/OT were following and continue to work with the patient as patient needs rehab for continued strength and mobility therapy. During hospitalization patient's blood pressure fluctuated and is currently stabilized on current medications. Patient also had hypokalemia during hospitalization and was replaced and will need repeat labs in 2-3 days. Currently patient is off oxygen and denies any shortness of breath, chest pain or palpitations at this time. Patient denies any nausea or vomiting and has been tolerating diet. Patient has increased his caloric intake and discussed with the patient and family member Olya about Magic cups, yogurt, and ensure in between meals to increase his protein intake. Currently patient's condition is stable with much improvement and patient continues to be much more alert and awake during the day. Patient is stable for discharge today back to [place] for continued IV antibiotic therapy as well as PT/OT. On exam vital signs are stable. Temp is 98.4F, pulse is 78, respirations are 18, blood pressure is 126/76, oxygen saturation is 96% on room air. Cardio S1 and S2 are muffled. Respiratory system shows diminished breath sounds with expiratory wheezing noted on exam. Abdomen is soft, thin, and non-tender. Nervous system shows no focal deficits with moderate diffuse weakness. Please refer to medication reconciliation sheet for a list of medications. Patient Condition at Discharge: Fair Plan - Discharge Summary Discharge Rx Participant: No New Discharge Prescriptions: New Ipratropium-Albuterol Nebulize [Duoneb 0.5 mg-3 mg/3 ml Soln] 3 ml INHALATION RT-QID ampul.neb Ensure 1 can PO TID BETWEEN MEALS #18 can Fludrocortisone [Florinef] 0.1 mg PO BID tab Folic Acid 1 mg PO DAILY #30 tablet Loperamide [Imodium] 2 mg PO QID PRN cap PRN Reason: Diarrhea Multivitamins, Thera [Multivitamin] 1 tab PO DAILY #30 tablet Midodrine [ProAmatine] 20 mg PO AC-TID tab Pantoprazole [Protonix] 40 mg PO AC-BRKFST tablet. risperiDONE [RisperDAL] 0.125 mg PO HS #3 tab Thiamine [Vitamin B-1] 100 mg PO DAILY #30 tablet Continue Tamsulosin HCl [Flomax] 0.4 mg PO HS Ezetimibe [Zetia] 10 mg PO DAILY Cyanocobalamin (Vitamin B-12) [Vitamin B-12] 1,000 mcg PO DAILY Clopidogrel Bisulfate [Plavix] 75 mg PO DAILY Budesonide/Formoterol Fumarate [Symbicort 160-4.5 Mcg Inhaler] 2 puff INHALATION RT-BID Atorvastatin Calcium [Lipitor] 20 mg PO HS Acetaminophen [Tylenol] 1,000 mg PO Q4-6H PRN PRN Reason: Pain Albuterol Nebulized [Ventolin Nebulized] 2.5 mg INHALATION RT-TID Pyridostigmine [Mestinon] 60 mg PO TID Discontinued Midodrine HCl [ProAmatine] 20 mg PO TID Fludrocortisone [Florinef] 0.1 mg PO DAILY Discharge Medication List Acetaminophen [Tylenol] 1,000 mg PO Q4-6H PRN 04/16/19 [History] Atorvastatin Calcium [Lipitor] 20 mg PO HS 04/16/19 [History] Budesonide/Formoterol Fumarate [Symbicort 160-4.5 Mcg Inhaler] 2 puff INHALATION RT-BID 04/16/19 [History] Clopidogrel Bisulfate [Plavix] 75 mg PO DAILY 04/16/19 [History] Cyanocobalamin (Vitamin B-12) [Vitamin B-12] 1,000 mcg PO DAILY 04/16/19 [History] Ezetimibe [Zetia] 10 mg PO DAILY 04/16/19 [History] Tamsulosin HCl [Flomax] 0.4 mg PO HS 04/16/19 [History] Albuterol Nebulized [Ventolin Nebulized] 2.5 mg INHALATION RT-TID 05/17/19 [History] Pyridostigmine [Mestinon] 60 mg PO TID 05/17/19 [History] Ensure 1 can PO TID BETWEEN MEALS #18 can 05/26/19 [Rx] Fludrocortisone [Florinef] 0.1 mg PO BID tab 05/26/19 [Rx] Folic Acid 1 mg PO DAILY #30 tablet 05/26/19 [Rx] Ipratropium-Albuterol Nebulize [Duoneb 0.5 mg-3 mg/3 ml Soln] 3 ml INHALATION RT-QID ampul.neb 05/26/19 [Rx] Loperamide [Imodium] 2 mg PO QID PRN cap 05/26/19 [Rx] Midodrine [ProAmatine] 20 mg PO AC-TID tab 05/26/19 [Rx] Multivitamins, Thera [Multivitamin] 1 tab PO DAILY #30 tablet 05/26/19 [Rx] Pantoprazole [Protonix] 40 mg PO AC-BRKFST tablet. 05/26/19 [Rx] Thiamine [Vitamin B-1] 100 mg PO DAILY #30 tablet 05/26/19 [Rx] risperiDONE [RisperDAL] 0.125 mg PO HS #3 tab 05/26/19 [Rx] Follow up Appointment(s)/Referral(s): Ashkan Rosa MD [STAFF PHYSICIAN] - 1 Week Stefano Johnson DO [Doctor of Osteopathic Medicine] - 1 Week Sudheer Farnsworth MD [REFERRING] - 1 [facility] [NON-STAFF] - As Needed (If call the wound care center to assist in the outpatient setting if needed. ) Pramod Doan MD [STAFF PHYSICIAN] - 1 Week Geo Mcneill DO [Doctor of Osteopathic Medicine] - 1 Week Ambulatory/Diagnostic Orders: Basic Metabolic Panel [LAB.AMB] Time Frame: 3 Days, Location: None Selected Complete Blood Count w/diff [LAB.AMB] Time Frame: 3 Days, Location: None Selected Activity/Diet/Wound Care/Special Instructions: Activity as tolerated Continue current diet Continue to encourage Magic cups and ensure between meals Continue with IV antibiotic therapy per infectious disease recommendations Follow-up with specialists as instructed Patient is to have sutures removed of the right hand and approximately one week Continue working with PT/OT Repeat labs in 2-3 days Follow-up with primary care provider upon discharge Discharge Disposition: TRANSFER TO SNF/F
--- NOTE | 2019-05-26 16:15 | PN ---
PROGRESS NOTE DATE OF SERVICE: 05/26/2019 REASON FOR FOLLOWUP: Right hand MRSA infection with concern for deep infection per Orthopedics. INTERVAL HISTORY: The patient is currently afebrile. Patient has been breathing comfortably on room air. Denies any chest pain or cough. No nausea or vomiting. No abdominal pain or pain to the right hand area. PHYSICAL EXAMINATION: Blood pressure 112/67 with a pulse of 66, temperature 98.2. He is 95% on room air. General description is an elderly male up in the chair in no distress. RESPIRATORY SYSTEM: Unlabored breathing. Clear to auscultation anteriorly. HEART: S1, S2. Regular rate and rhythm. ABDOMEN: Soft. No tenderness. Right hand wound is currently dressed up. No obvious drainage on the dressing. LABS: No new labs have been obtained today potassium of 3.5. DIAGNOSTIC IMPRESSION AND PLAN: Patient with right hand methicillin-resistant Staphylococcus aeruginosa infection with underlying concern for deep infection, status post surgical drainage. Patient did have a CRP of 70 with a sedimentation rate of 91, which will also be monitored in the outpatient setting. Vancomycin dose to be adjusted to a trough of 15. Follow up in the office in one week. at the bedside. Questions and concerns were answered. MMODL / IJN: [id number] /
[2019-05-27] MEDS ORDERED: VANCOMYCIN TROUGH DUE 1 EACH MISC MISCELLANE ONE (09:00)
--- NOTE | 2019-05-29 12:45 | CDI ---
Documentation Clarification Form Date: 05/29/19 From: Allie Romero Phone: If you have a question regarding this query, please contact Radha Escalona at [phone] between 8am and 5pm. Admit Date: 05/17/2019 2:44:00 PM Patient Name: Juan Bunch Visit Number: [id number] Discharge Date: 05/26/2019 3:20:00 PM ATTENTION: The Clinical Documentation Specialists (CDI) and [facility] Coding Staff appreciate your assistance in clarifying documentation. Please respond to the clarification below the line at the bottom and electronically sign. The CDI & [facility] Coding staff will review the response and follow-up if needed. Please note: Queries are made part of the Legal Health Record. If you have any questions, please contact the author of this message via ITS. Dr. Stefano Johnson Per your progress notes/operative note, an excisional debridement was performed on right dorsal hand. History/Risk Factors: Wound to right dorsal hand. Clinical Indicators: Irrigation and debridement Treatment: Excisional debridement In order to capture the severity of condition and code the appropriate procedure; could you please document the depth of the excisional debridement? Skin Subcutaneous tissue and fascia Muscle Other; please specify Unable to determine 5 mm MTDD
== END 2019-05-26 15:20 | DRG 853 ==
LOC: 3SCARD 14:44
PROVIDERS: ADMIT Hospitalist; ATTEND Hospitalist
PROC: 0XBJ0ZZ Excision of Right Hand, Open Approach (ICD-10-PCS; principal; 2019-05-22 07:30)
PROC: 02HV33Z Insertion of Infusion Device into Superior Vena Cava, Percutaneous Approach (ICD-10-PCS; 2019-05-24)
DX: A41.9 Sepsis, unspecified organism (principal); E43 Unspecified severe protein-calorie malnutrition; G93.41 Metabolic encephalopathy; L89.153 Pressure ulcer of sacral region, stage 3; F05 Delirium due to known physiological condition; L03.113 Cellulitis of right upper limb; L97.912 Non-pressure chronic ulcer of unspecified part of right lower leg with fat layer exposed; L97.922 Non-pressure chronic ulcer of unspecified part of left lower leg with fat layer exposed; N39.0 Urinary tract infection, site not specified; M48.54XA Collapsed vertebra, not elsewhere classified, thoracic region, initial encounter for fracture; L02.511 Cutaneous abscess of right hand; Z68.1 Body mass index [BMI] 19.9 or less, adult; B95.62 Methicillin resistant Staphylococcus aureus infection as the cause of diseases classified elsewhere; I48.0 Paroxysmal atrial fibrillation; J44.9 Chronic obstructive pulmonary disease, unspecified; E78.5 Hyperlipidemia, unspecified; E87.6 Hypokalemia; H35.30 Unspecified macular degeneration; I25.10 Atherosclerotic heart disease of native coronary artery without angina pectoris; I95.1 Orthostatic hypotension; R29.6 Repeated falls; S62.306A Unspecified fracture of fifth metacarpal bone, right hand, initial encounter for closed fracture; M19.90 Unspecified osteoarthritis, unspecified site; R26.9 Unspecified abnormalities of gait and mobility; R74.8 Abnormal levels of other serum enzymes; R19.7 Diarrhea, unspecified; S66.314A Strain of extensor muscle, fascia and tendon of right ring finger at wrist and hand level, initial encounter; Z79.01 Long term (current) use of anticoagulants; Z79.02 Long term (current) use of antithrombotics/antiplatelets; Z79.51 Long term (current) use of inhaled steroids; Z79.52 Long term (current) use of systemic steroids; Z79.899 Other long term (current) drug therapy; Z88.1 Allergy status to other antibiotic agents; Z88.5 Allergy status to narcotic agent; Z91.048 Other nonmedicinal substance allergy status; Z85.819 Personal history of malignant neoplasm of unspecified site of lip, oral cavity, and pharynx; Z85.820 Personal history of malignant melanoma of skin; Z96.649 Presence of unspecified artificial hip joint; Z95.5 Presence of coronary angioplasty implant and graft; Z95.0 Presence of cardiac pacemaker; Z91.81 History of falling; Z87.891 Personal history of nicotine dependence; Z87.440 Personal history of urinary (tract) infections; Z87.01 Personal history of pneumonia (recurrent); Z86.79 Personal history of other diseases of the circulatory system; Z83.3 Family history of diabetes mellitus
CPT/HCPCS: 36573; 64413; 71045; 71275; 80048; 80053; 80202; 81001; 82533; 82565; 83735; 84100; 84132; 85025; 85379; 85652; 86140; 87040; 87070; 87075; 87077; 87086; 87186; 87205; 87324; 94640; 94760